=== PATIENT | female | born 1980 | race American Indian/Alaskan Native ===

== ENCOUNTER 2017-05-01 16:09 | Emergency (ER) | payer MEDICAID ==
[2017-05-01 16:45] VITALS: BP 121/75
--- NOTE | 2017-05-01 18:14 | Emergency Department Report ---
Pediatric URI - HPI Chief Complaint: Skin Rash Stated Complaint: SKIN IRRITATION Time Seen by Provider: 05/01/17 16:48 ED Review of Systems ROS: Stated complaint: SKIN IRRITATION Other details as noted in HPI Pediatric Past Medical History - Chronic Health Problems Hx Asthma: No Hx Diabetes: No Hx HIV: No Hx Renal Disease: No Hx Sickle Cell Disease: No Hx Seizures: No ED Peds URI Exam - Exam General: Vital signs noted. No distress. Alert and acting appropriately. Neurologic: Alert and oriented, no deficits. Musculoskeletal: Unremarkable. ED Course Vital Signs 05/01/17 16:41 Temperature 98.7 F Pulse Rate 89 Respiratory 18 Rate Blood Pressure 121/75 O2 Sat by Pulse 100 Oximetry Critical care attestation.: If time is entered above; I have spent that time in minutes in the direct care of this critically ill patient, excluding procedure time. ED Disposition Condition: Stable Referrals: PATRIC CANTU DO [Primary Care Provider] - 3-5 Days
[2017-05-01] MEDS ORDERED: DELTASONE PO ONE (18:16)
--- NOTE | 2017-05-01 18:16 | Emergency Department Report ---
ED Rash HPI - HPI Chief Complaint: Skin Rash Stated Complaint: SKIN IRRITATION Time Seen by Provider: 05/01/17 16:48 Duration: 2 weeks Location: Back, Abdomen Suspected Cause: Unknown Rash Symptoms: Yes Itching (back and abdomen), No Facial Swelling, No Tongue/ Oral Swelling, No Breathing Difficulties, No Choking Sensation, No Wheezing/ Dyspnea, No Peeling, No Blistering, No Fever, No Lightheaded, No Malaise, No Myalgias (no pain) Other History: Patient here with her children. She said that she went to her friend's house and she thinks that she was exposed to an insect. It's in triage notes the patient's that she was exposed to lice but patient states that she thinks that it was some other kind of bug. She is that she has sores on her body and she has been itching at the sites that are bloody. Denies any fever or chills. Denies any respiratory problems. Denies any nausea or vomiting. This has been going on for over 2 weeks. Denies any pain. ED Review of Systems ROS: Stated complaint: SKIN IRRITATION Other details as noted in HPI Comment: All other systems reviewed and negative Constitutional: no symptoms reported ENT: denies: throat pain, congestion Respiratory: no symptoms reported Cardiovascular: denies: chest pain, palpitations, dyspnea on exertion, orthopnea , edema, syncope, paroxysmal nocturnal dyspnea Gastrointestinal: denies: abdominal pain, nausea, vomiting, diarrhea, constipation Musculoskeletal: denies: back pain, joint swelling, arthralgia, myalgia Skin: rash, pruritus Neurological: denies: headache ED Past Medical Hx - Past Medical History Previous Medical History?: No Hx Hypertension: No Hx Congestive Heart Failure: No Hx Diabetes: No Hx Deep Vein Thrombosis: No Hx Renal Disease: No Hx Sickle Cell Disease: No Hx Seizures: No Hx Asthma: No Hx COPD: No Hx HIV: No - Surgical History Past Surgical History?: No - Family History Family history: no significant - Social History Smoking Status: Current Every Day Smoker Substance Use Type: Alcohol - Medications Home Medications: Home Medications Medication Instructions Recorded Confirmed Last Taken Type Ferrous Sulfate [Feosol 325 MG tab] 325 mg PO BID #60 tablet 05/06/16 Unknown Rx Ibuprofen [Motrin 600 MG tab] 600 mg PO Q6HR #30 tablet 05/06/16 Unknown Rx Vit-Fe Fumar-FA [ 1 each PO QDAY #30 tablet 05/06/16 Unknown Rx Vitamin] Cephalexin [Keflex] 500 mg PO Q8HR 5 Days #15 cap 05/01/17 Unknown Rx Neomycin/Bacitracin/Polymyxinb 1 each TP BID 7 Days #5 oint.pack 05/01/17 Unknown Rx [Neosporin Ointment Packet] hydrOXYzine HCL [Atarax] 25 mg PO Q6HR PRN 5 Days #20 tablet 05/01/17 Unknown Rx Rash Exam - Exam General: Vital signs noted. No distress. Alert and acting appropriately. This is a 36-year-old patient who appears to be overwhelmed manage and several children. She is nontoxic in appearance. HEENT: No Periorbital Edema, No Conjuctival Injection, No Chemosis, No Perioral Edema, No Tongue Edema, No Uvular Edema, No Compromised Airway, No Drooling Lungs: Yes Good Air Exchange, No Wheezes, No Ronchi, No Stridor, No Cough, No Labored Respirations, No Retractions, No Use of Accessory Muscles, No Other Abnormal Lung Sounds Heart: Yes Regular (S1, S2. Rate and rhythm. No Murmur), No Murmur Skin: Yes Excoriations (with isolated excoriated areas scattered sparsely to anterior and posterior thorax.), Yes Erythema (some area of erythema and appears to be infected), No Urticarial Rash, No Maculopapular Rash, No Morbilliform rash, No Weeping, No Tenderness, No Edema, No Encrustations, No Other Other: Positive: Abdomen Normal (soft, nontender to palpate in all quadrants, bowel sounds), Neurologic Normal (alert and oriented 3, GCS of 15, speech is clear and fluid and gait is normal.), Musculoskeletal Normal (full range of motion in all extremities, no clubbing cyanosis are edema to extremities. +2 pulses in all extremities. Musculoskeletal and extremity exams are normal) ED Course Vital Signs 05/01/17 16:41 Temperature 98.7 F Pulse Rate 89 Respiratory 18 Rate Blood Pressure 121/75 O2 Sat by Pulse 100 Oximetry - Reevaluation(s) Reevaluation #1: 05/01/17 19:26 She received Deltasone 60 mg by mouth in emergency room for rash. ED Medical Decision Making - Medical Decision Making ED course: Patient presents to emergency room complaining of skin rash that she thinks she was bit by something 2 weeks ago and she is picking at the side and they looked legs the are becoming sores. Physical findings were isolated areas on anterior and posterior thorax that looks to be mildly infected probably from patient scratching the areas. I discussed patient that she has a minor infection to these areas which were rash initially and because she scratched areas they became infected and I told her that she needs to clean areas with peroxide and apply Neosporin ointment and I will put her on Keflex. I discussed with her that she will need to follow up with [employer] sales consultant in 2-3 days follow-up visit. Patient request then for skin test to evaluate what kind of rash or if she is allergic to anything. I told her that this was not done in the emergency room that she will need to follow-up with the [employer] sales consultant or hospital receptionist who has the equipment in their office as this is their specialty for further evaluation of allergy testing. Was given prednisone 60 mg by mouth and will be discharged home with prescription for Atarax, Keflex and to follow up with [employer] and her primary care physician. Critical care attestation.: If time is entered above; I have spent that time in minutes in the direct care of this critically ill patient, excluding procedure time. ED Disposition Clinical Impression: Skin infection, Rash and other nonspecific skin eruption Disposition: DC-01 TO HOME OR SELFCARE Is pt being admited?: No Does the pt Need Aspirin: No Condition: Stable Instructions: Acute Rash (ED), Cellulitis (ED), Acute Wound Care (ED) Additional Instructions: Follow-up with your primary care physician in 2 days follow-up with [employer] is referred Keep affected areas clean and dry and apply [id number] Neosporin ointment to affected areas Follow discharge instruction on acute wound care . Prescriptions: Cephalexin [Keflex] 500 mg PO Q8HR 5 Days #15 cap hydrOXYzine HCL [Atarax] 25 mg PO Q6HR PRN 5 Days #20 tablet PRN Reason: Itching Neomycin/Bacitracin/Polymyxinb [Neosporin Ointment Packet] 1 each TP BID 7 Days #5 oint.pack Referrals: PATRIC CANTU DO [Primary Care Provider] - 2-3 Days EDDIE NOGUEIRA MD [Staff Physician] - 2-3 Days
== END 2017-05-01 20:51 | disposition home or self-care (01) ==
LOC: ED 16:09
DX: R21 Rash and other nonspecific skin eruption (principal); L08.9 Local infection of the skin and subcutaneous tissue, unspecified; F17.200 Nicotine dependence, unspecified, uncomplicated
CPT/HCPCS: 99282; J7512

== ENCOUNTER 2017-10-22 08:15 | Emergency (ER) | payer OTHER ==
[2017-10-22] MEDS ORDERED: BENADRYL IM ONE (10:14)
[2017-10-22] MEDS ORDERED: CATAPRES PO ONE (10:14)
--- NOTE | 2017-10-22 10:19 | Emergency Department Report ---
- General Chief complaint: Skin Rash Stated complaint: RASH Time Seen by Provider: 10/22/17 10:05 Source: patient Mode of arrival: Ambulatory Limitations: No Limitations - History of Present Illness Initial comments: 37-year-old female with a past medical history of hypertension and eczema presents to the hospital complaining of exacerbation of eczema. Patient states she has tried multiple [id number] medications without relief. She has not followed with her primary care doctor or product developer. Patient presents with elevated blood pressure has been noncompliant with her BP medication times one she denies headache, chest pain, or shortness of breath. No fever reported. Patient is requesting an assisting on a shot to help with her eczema. - Related Data Previous Rx's Medication Instructions Recorded Last Taken Type Ferrous Sulfate [Feosol 325 MG tab] 325 mg PO BID #60 tablet 05/06/16 Unknown Rx Ibuprofen [Motrin 600 MG tab] 600 mg PO Q6HR #30 tablet 05/06/16 Unknown Rx Vit-Fe Fumar-FA [ 1 each PO QDAY #30 tablet 05/06/16 Unknown Rx Vitamin] Cephalexin [Keflex] 500 mg PO Q8HR 5 Days #15 cap 05/01/17 Unknown Rx Neomycin/Bacitracin/Polymyxinb 1 each TP BID 7 Days #5 oint.pack 05/01/17 Unknown Rx [Neosporin Ointment Packet] hydrOXYzine HCL [Atarax] 25 mg PO Q6HR PRN 5 Days #20 tablet 05/01/17 Unknown Rx Mineral Oil/Hydrophil Petrolat 1 applicatio TP BID #1 bottle 10/22/17 Unknown Rx [Aquaphor Healing Ointment] Triamcinolone 0.1% [Kenalog 0.1% 1 applic TP BID #1 tube 10/22/17 Unknown Rx OINT] amLODIPine [Norvasc] 5 mg PO DAILY #30 tab 10/22/17 Unknown Rx hydrOXYzine PAMOATE [Vistaril] 50 mg PO Q6HR PRN #30 capsule 10/22/17 Unknown Rx Allergies Allergy/AdvReac Type Severity Reaction Status Date / Time No Known Allergies Allergy Verified 01/09/15 01:28 Abscess Boil HPI - HPI Chief Complaint: Skin Rash Stated Complaint: RASH Time Seen by Provider: 10/22/17 10:05 Home Medications: Previous Rx's Medication Instructions Recorded Last Taken Type Ferrous Sulfate [Feosol 325 MG tab] 325 mg PO BID #60 tablet 05/06/16 Unknown Rx Ibuprofen [Motrin 600 MG tab] 600 mg PO Q6HR #30 tablet 05/06/16 Unknown Rx Vit-Fe Fumar-FA [ 1 each PO QDAY #30 tablet 05/06/16 Unknown Rx Vitamin] Cephalexin [Keflex] 500 mg PO Q8HR 5 Days #15 cap 05/01/17 Unknown Rx Neomycin/Bacitracin/Polymyxinb 1 each TP BID 7 Days #5 oint.pack 05/01/17 Unknown Rx [Neosporin Ointment Packet] hydrOXYzine HCL [Atarax] 25 mg PO Q6HR PRN 5 Days #20 tablet 05/01/17 Unknown Rx Mineral Oil/Hydrophil Petrolat 1 applicatio TP BID #1 bottle 10/22/17 Unknown Rx [Aquaphor Healing Ointment] Triamcinolone 0.1% [Kenalog 0.1% 1 applic TP BID #1 tube 10/22/17 Unknown Rx OINT] amLODIPine [Norvasc] 5 mg PO DAILY #30 tab 10/22/17 Unknown Rx hydrOXYzine PAMOATE [Vistaril] 50 mg PO Q6HR PRN #30 capsule 10/22/17 Unknown Rx Allergies/Adverse Reactions: Allergies Allergy/AdvReac Type Severity Reaction Status Date / Time No Known Allergies Allergy Verified 01/09/15 01:28 ED Review of Systems ROS: Stated complaint: RASH Other details as noted in HPI Comment: All other systems reviewed and negative ED Past Medical Hx - Past Medical History Previous Medical History?: Yes Hx Hypertension: Yes Hx Congestive Heart Failure: No Hx Diabetes: No Hx Deep Vein Thrombosis: No Hx Renal Disease: No Hx Sickle Cell Disease: No Hx Seizures: No Hx Asthma: No Hx COPD: No Hx HIV: No Additional medical history: Eczema - Surgical History Past Surgical History?: No - Social History Smoking Status: Current Every Day Smoker Substance Use Type: None - Medications Home Medications: Home Medications Medication Instructions Recorded Confirmed Last Taken Type Ferrous Sulfate [Feosol 325 MG tab] 325 mg PO BID #60 tablet 05/06/16 Unknown Rx Ibuprofen [Motrin 600 MG tab] 600 mg PO Q6HR #30 tablet 05/06/16 Unknown Rx Vit-Fe Fumar-FA [ 1 each PO QDAY #30 tablet 05/06/16 Unknown Rx Vitamin] Cephalexin [Keflex] 500 mg PO Q8HR 5 Days #15 cap 05/01/17 Unknown Rx Neomycin/Bacitracin/Polymyxinb 1 each TP BID 7 Days #5 oint.pack 05/01/17 Unknown Rx [Neosporin Ointment Packet] hydrOXYzine HCL [Atarax] 25 mg PO Q6HR PRN 5 Days #20 tablet 05/01/17 Unknown Rx Mineral Oil/Hydrophil Petrolat 1 applicatio TP BID #1 bottle 10/22/17 Unknown Rx [Aquaphor Healing Ointment] Triamcinolone 0.1% [Kenalog 0.1% 1 applic TP BID #1 tube 10/22/17 Unknown Rx OINT] amLODIPine [Norvasc] 5 mg PO DAILY #30 tab 10/22/17 Unknown Rx hydrOXYzine PAMOATE [Vistaril] 50 mg PO Q6HR PRN #30 capsule 10/22/17 Unknown Rx ED Physical Exam - General Limitations: No Limitations - Other Other exam information: General: No limitations, patient is alert in no acute distress Head exam: Atraumatic, normocephalic Eyes exam: Normal appearance, pupils equal reactive to light, extraocular movements intact ENT: Moist mucous membrane, normal oropharynx Neck exam: Normal inspection, full range of motion, no meningismus nontender Respiratory exam: Clear to auscultation bilateral, no wheezes, rales, crackles Cardiovascular: Normal rate and rhythm, normal heart sounds Abdomen: Soft, nondistended, and nontender, with normal bowel sounds, no rebound, or guarding Extremity: Full range of motion normal inspection no deformity Back: Normal Inspection, full range of motion, no tenderness Neurologic: Alert, oriented x3, cranial nerves intact, no motor or sensory deficit Psychiatric: normal affect, normal mood Skin: Eczematous rash to neck, arms, legs, and stomach ED Course Vital Signs 10/22/17 10/22/17 10/22/17 08:45 10:40 10:46 Temperature 98.3 F Pulse Rate 93 H 93 H Respiratory 16 20 Rate Blood Pressure 173/129 154/103 Blood Pressure 154/103 [Right] O2 Sat by Pulse 100 100 Oximetry ED Medical Decision Making - Medical Decision Making Eczema Chronic and uncontrolled I explained to the patient the importance of outpatient follow-up for management of her chronic condition ER is limited in his ability to treat her chronic condition however, we will try additional medication to see if she receives relief from her symptoms. Hypertension explained my concern for her blood pressure and possibility of underlying renal insufficiency Patient states that to her her eczema is more emergent that her blood pressure and she does not want blood work. She willing to receive a blood pressure medication and prefers shots for her eczema and then DC home. Will be given a prescription for blood pressure medication follow-up encourage Pt is asymptomatic at this time and close follow-up and blood pressure recheck encouraged. Repeat bp improved compared to triage prior to receiving meds. Norvasc 5 mg given prior to d/c - Differential Diagnosis eczema, cellulitis, hypertensive urgency Critical Care Time: No Critical care attestation.: If time is entered above; I have spent that time in minutes in the direct care of this critically ill patient, excluding procedure time. ED Disposition Clinical Impression: Eczema, Uncontrolled hypertension, Nonadherence to medication Disposition: DC-01 TO HOME OR SELFCARE Is pt being admited?: No Does the pt Need Aspirin: No Condition: Stable Instructions: Eczema (ED), How to Take a Blood Pressure (ED), Hypertension (ED ) Additional Instructions: Take either prescribed Vistaril or Benadryl as needed for itching but do not take both. Use the creams provided. It is very important that you follow up with your primary care doctor for further management of the eczema as well as your blood pressure. You will also benefit from dermatology follow-up for further management of the eczema. Continue to monitor your blood pressure home while taking the prescribed blood pressure medication and record these values. Please provide this information to your doctor for follow-up some medication adjustments can be made as needed. Prescriptions: amLODIPine [Norvasc] 5 mg PO DAILY #30 tab hydrOXYzine PAMOATE [Vistaril] 50 mg PO Q6HR PRN #30 capsule PRN Reason: Itching Mineral Oil/Hydrophil Petrolat [Aquaphor Healing Ointment] 1 applicatio TP BID # 1 bottle Triamcinolone 0.1% [Kenalog 0.1% OINT] 1 applic TP BID #1 tube Referrals: ROMAN VALLEJO MD [Staff Physician] - 3-5 Days (product developer) RUTHIE WISE MD [Staff Physician] - 3-5 Days (product developer ) [facility] [Provider Group] - 3-5 Days (primary care clinic) ROWAN JACKSON MD [Staff Physician] - 3-5 Days (Primary care doctor) Time of Disposition: 10:25
[2017-10-22] MEDS ORDERED: NORVASC PO ONE (10:42)
[2017-10-22 10:49] VITALS: BP 154/103
== END 2017-10-22 11:14 | disposition home or self-care (01) ==
LOC: ED 08:15
DX: L30.9 Dermatitis, unspecified (principal); I10 Essential (primary) hypertension; Z91.19 Patient's noncompliance with other medical treatment and regimen; F17.200 Nicotine dependence, unspecified, uncomplicated
CPT/HCPCS: 96372; 99282; J1200; J2930

== ENCOUNTER 2018-02-15 15:17 | Emergency (ER) | payer SELFPAY ==
[2018-02-15 16:07] VITALS: BP 170/112
[2018-02-15] MEDS ORDERED: DECADRON IM ONE (17:55)
--- NOTE | 2018-02-15 18:00 | Emergency Department Report ---
ED Rash HPI - HPI Chief Complaint: Skin Rash Stated Complaint: SKIN/ALLERGIES Duration: 1-2 months Location: Head (face), Neck, Chest, Upper Extremities, Lower Extremities Suspected Cause: Unknown Rash Symptoms: Yes Itching, No Facial Swelling, No Tongue/Oral Swelling, No Breathing Difficulties, No Choking Sensation, No Wheezing/Dyspnea, No Peeling, No Blistering, No Fever, No Lightheaded, No Malaise, No Myalgias Severity: moderate Other History: This 37-year-old -Turk[place] female who presents with a generalized rash for 1-2 months from eczema flare. Past medical history of hypertension and eczema. Patient states she is currently using, dove cream, gold grimaldo cream, and hydrocortisone with no improvement of symptoms. She reports a rash all over and worse in arm and leg folds. She is currently taking Zithromax with no improvement of itching. Patient states she can't tolerate Benadryl due to her increased drowsiness. The patient denies weeping, swelling, fever, joint pain, swelling, or difficulty swallowing. ED Review of Systems ROS: Stated complaint: SKIN/ALLERGIES Other details as noted in HPI Constitutional: denies: chills, fever ENT: denies: ear pain, throat pain Respiratory: denies: cough, shortness of breath, wheezing Cardiovascular: denies: chest pain, palpitations Gastrointestinal: denies: abdominal pain, nausea, diarrhea Skin: rash (generalized rash), pruritus. denies: lesions Neurological: denies: headache, weakness, paresthesias Psychiatric: denies: anxiety, depression ED Past Medical Hx - Past Medical History Hx Hypertension: Yes Hx Congestive Heart Failure: No Hx Diabetes: No Hx Deep Vein Thrombosis: No Hx Renal Disease: No Hx Sickle Cell Disease: No Hx Seizures: No Hx Asthma: No Hx COPD: No Hx HIV: No Additional medical history: Eczema - Surgical History Past Surgical History?: No - Social History Smoking Status: Never Smoker Substance Use Type: None - Medications Home Medications: Home Medications Medication Instructions Recorded Confirmed Last Taken Type Ferrous Sulfate [Feosol 325 MG tab] 325 mg PO BID #60 tablet 05/06/16 Unknown Rx Ibuprofen [Motrin 600 MG tab] 600 mg PO Q6HR #30 tablet 05/06/16 Unknown Rx Vit-Fe Fumar-FA [ 1 each PO QDAY #30 tablet 05/06/16 Unknown Rx Vitamin] Neomycin/Bacitracin/Polymyxinb 1 each TP BID 7 Days #5 oint.pack 05/01/17 Unknown Rx [Neosporin Ointment Packet] cephALEXin [Keflex] 500 mg PO Q8HR 5 Days #15 cap 05/01/17 Unknown Rx hydrOXYzine HCL [Atarax] 25 mg PO Q6HR PRN 5 Days #20 tablet 05/01/17 Unknown Rx Mineral Oil/Hydrophil Petrolat 1 applicatio TP BID #1 bottle 10/22/17 Unknown Rx [Aquaphor Healing Ointment] Triamcinolone 0.1% [Kenalog 0.1% 1 applic TP BID #1 tube 10/22/17 Unknown Rx OINT] amLODIPine [Norvasc] 5 mg PO DAILY #30 tab 10/22/17 Unknown Rx hydrOXYzine PAMOATE [Vistaril] 50 mg PO Q6HR PRN #30 capsule 10/22/17 Unknown Rx Prednisone [predniSONE 10 mg 10 mg PO .TAPER #1 tab.ds.pk 02/15/18 Unknown Rx (6-Day Pack, 21 Tabs)] Triamcinolone 0.5% [Kenalog 0.5% 1 applic TP TID #1 tube 02/15/18 Unknown Rx CREAM] amLODIPine [Norvasc] 5 mg PO DAILY #14 tab 02/15/18 Unknown Rx hydrOXYzine PAMOATE [Vistaril] 25 mg PO Q6HR PRN #15 capsule 02/15/18 Unknown Rx Rash Exam - Exam General: Vital signs noted. No distress. Alert and acting appropriately. HEENT: No Periorbital Edema, No Conjuctival Injection, No Chemosis, No Perioral Edema, No Tongue Edema, No Uvular Edema, No Compromised Airway, No Drooling Lungs: Yes Good Air Exchange (Normal Breath Sounds), No Wheezes, No Ronchi, No Stridor, No Cough, No Labored Respirations, No Retractions, No Use of Accessory Muscles, No Other Abnormal Lung Sounds Heart: Yes Regular, No Murmur Skin: Yes Excoriations, Yes Erythema, No Urticarial Rash, No Maculopapular Rash , No Morbilliform rash, No Bulla(e), No Weeping, No Tenderness, No Edema, No Encrustations ED Course Vital Signs 02/15/18 16:04 Temperature 97.7 F Pulse Rate 70 Respiratory 16 Rate Blood Pressure 170/112 O2 Sat by Pulse 96 Oximetry ED Medical Decision Making - Medical Decision Making Patient was examined by me in the emergency room. Blood pressure is elevated on arrival and patient is in no acute distress. Has past medical history of hypertension and currently not taking any medication. She was given dexamethasone 8 mg IM once while in the ER. Reevaluation of blood pressure, remained elevated. Patient given clonidine 0.2 mg by mouth once while in ER. Start triamcinolone, Vistaril, prednisone taper for atopic dermatitis. Start amlodipine 5 mg by mouth once daily, #14 with no refills for hypertension. Plan discussed with patient to discharge home and treat outpatient. Referral to allergy and asthma specialist, dermatology. Patient discharged home in stable condition. Follow up with PCP in 2-3 days for management of hypertension. Critical care attestation.: If time is entered above; I have spent that time in minutes in the direct care of this critically ill patient, excluding procedure time. ED Disposition Clinical Impression: Rash of entire body, Asymptomatic hypertension Atopic dermatitis Qualifiers: Atopic dermatitis type: infantile Qualified Code(s): L20.83 - Infantile (acute ) (chronic) eczema Hypertension Qualifiers: Hypertension type: essential hypertension Qualified Code(s): I10 - Essential ( primary) hypertension Disposition: - TO HOME OR SELFCARE Is pt being admited?: No Does the pt Need Aspirin: No Condition: Stable Instructions: Eczema (ED), DASH Eating Plan (ED), Hypertension (ED) Additional Instructions: Apply a thin layer of triamcinolone cream twice a day for 5-10 days. Wash area twice a day. Complete full course of steroids as prescribed. Encourage stop smoking to reduce cardiovascular risk. Moderate caffeine consumption is acceptable. Begin and maintain aerobic exercise, with a goal of at least 30 minutes of moderate intensity, dynamic aerobic exercise (walking, jogging, cycling, or swimming) 5 days per week to total 150 minutes as tolerated or recommended by a physician. Take medication daily as prescribed. Follow up with Primary Care Provider in 1 week. Follow up with photo specialist or dermatology in 3-5 days. Prescriptions: amLODIPine [Norvasc] 5 mg PO DAILY #14 tab hydrOXYzine PAMOATE [Vistaril] 25 mg PO Q6HR PRN #15 capsule PRN Reason: Itching Prednisone [predniSONE 10 mg (6-Day Pack, 21 Tabs)] 10 mg PO .TAPER #1 tab.ds.pk Triamcinolone 0.5% [Kenalog 0.5% CREAM] 1 applic TP TID #1 tube Referrals: [facility] [Provider Group] - 3-5 Days [facility] [Provider Group] - 3-[address] [facility] [Outside] - 3-5 Days Forms: Work/School Release Form(ED) Time of Disposition: 18:06 Print Language: SWISS
[2018-02-15] MEDS ORDERED: CATAPRES PO ONE (18:45)
== END 2018-02-15 18:53 | disposition home or self-care (01) ==
LOC: ED 15:17
DX: L20.9 Atopic dermatitis, unspecified (principal); I10 Essential (primary) hypertension
CPT/HCPCS: 96372; 99282; J1100

== ENCOUNTER 2018-07-17 06:33 | Outpatient (CLI) | payer SELFPAY ==
--- NOTE | 2018-07-17 08:49 | Emergency Department Report ---
ED General Adult HPI - General Chief complaint: Dyspnea/Respdistress Stated complaint: ASTHMA Time Seen by Provider: 07/17/18 08:37 Source: patient, EMS (ems notes not available at time of chart dictation), RN notes reviewed, old records reviewed Mode of arrival: Stretcher Limitations: No Limitations - History of Present Illness Initial comments: This is a 37-year-old female. The patient is reportedly 10, para 9, and is reportedly 27 weeks . She does not have a current [facility] doctor. She reports no outpatient care or ultrasound. The past medical history of asthma, no lifetime intubations, and currently consumes tobacco and cannabis. The patient presents to the emergency room with a complaint of resolved asthma exacerbation. Sugars includes seasonal allergies, cold weather, change in temperature. She may have "mold" at home, which may be inciting her symptoms. She reports resolved shortness of breath, wheezing, without chest pain. She was apparently given nebulizer therapy by EMS, which improved her symptoms. The patient endorses a secondary complaint of abdominal cramping. This cramping has been present for weeks. Today, it started after she arrived to the emergency room. The cramping is periumbilical, does not radiate anywhere, does not have exacerbating or relieving factors. She endorses experiencing this cramping over a span of weeks and months. She also endorses like cramps. However, she has no leg pain, no leg swelling, and denies irritative, obstructive urinary symptoms. -: Gradual Location: abdomen, left, right, lower extremity Radiation: non-radiation Severity scale (0 -10): 0 Quality: other Consistency: now resolved (asthma, shortness of breath now resolved), other Improves with: other Associated Symptoms: cough, shortness of breath, other (see history of present illness). denies: confusion, chest pain, diaphoresis, fever/chills, headaches, loss of appetite, malaise, nausea/vomiting, rash, seizure, syncope, weakness - Related Data Previous Rx's Medication Instructions Recorded Last Taken Type Ferrous Sulfate [Feosol 325 MG tab] 325 mg PO BID #60 tablet 05/06/16 Unknown Rx Ibuprofen [Motrin 600 MG tab] 600 mg PO Q6HR #30 tablet 05/06/16 Unknown Rx Vit-Fe Fumar-FA [ 1 each PO QDAY #30 tablet 05/06/16 Unknown Rx Vitamin] Neomycin/Bacitracin/Polymyxinb 1 each TP BID 7 Days #5 oint.pack 05/01/17 Unknown Rx [Neosporin Ointment Packet] cephALEXin [Keflex] 500 mg PO Q8HR 5 Days #15 cap 05/01/17 Unknown Rx hydrOXYzine HCL [Atarax] 25 mg PO Q6HR PRN 5 Days #20 tablet 05/01/17 Unknown Rx Mineral Oil/Hydrophil Petrolat 1 applicatio TP BID #1 bottle 10/22/17 Unknown Rx [Aquaphor Healing Ointment] Triamcinolone 0.1% [Kenalog 0.1% 1 applic TP BID #1 tube 10/22/17 Unknown Rx OINT] amLODIPine [Norvasc] 5 mg PO DAILY #30 tab 10/22/17 Unknown Rx hydrOXYzine PAMOATE [Vistaril] 50 mg PO Q6HR PRN #30 capsule 10/22/17 Unknown Rx Prednisone [predniSONE 10 mg 10 mg PO .TAPER #1 tab.ds.pk 02/15/18 Unknown Rx (6-Day Pack, 21 Tabs)] Triamcinolone 0.5% [Kenalog 0.5% 1 applic TP TID #1 tube 02/15/18 Unknown Rx CREAM] amLODIPine [Norvasc] 5 mg PO DAILY #14 tab 02/15/18 Unknown Rx hydrOXYzine PAMOATE [Vistaril] 25 mg PO Q6HR PRN #15 capsule 02/15/18 Unknown Rx Albuterol Sulfate [Proair 90 mcg IH Q4HR PRN #2 aer.pow.ba 07/17/18 Unknown Rx Respiclick] Doxylamine Succinate/Vit B6 1 each PO QHS PRN #30 tablet.dr 07/17/18 Unknown Rx [Diclegitony Dr 10-10 mg Tablet] Nitrofurantoin Cannon/M-Cryst 100 mg PO Q12HR #14 capsule 07/17/18 Unknown Rx [Macrobid CAP] Vit-Fe Fumar-FA [ 1 tab PO QDAY #30 tablet 07/17/18 Unknown Rx Vitamin] Allergies Allergy/AdvReac Type Severity Reaction Status Date / Time No Known Allergies Allergy Verified 01/09/15 01:28 ED Review of Systems ROS: Stated complaint: ASTHMA Other details as noted in HPI Constitutional: denies: fever, malaise Eyes: denies: vision change ENT: denies: epistaxis, congestion Respiratory: cough, shortness of breath, wheezing Cardiovascular: denies: chest pain, palpitations, edema Gastrointestinal: denies: nausea, vomiting Genitourinary: denies: dysuria Musculoskeletal: arthralgia, myalgia Skin: denies: lesions Neurological: denies: weakness Psychiatric: denies: anxiety ED Past Medical Hx - Past Medical History Previous Medical History?: Yes Hx Hypertension: Yes Hx Congestive Heart Failure: No Hx Diabetes: No Hx Deep Vein Thrombosis: No Hx Renal Disease: No Hx Sickle Cell Disease: No Hx Seizures: No Hx Asthma: Yes Hx COPD: No Hx HIV: No Additional medical history: Eczema - Surgical History Past Surgical History?: No - Social History Smoking Status: Current Every Day Smoker Substance Use Type: Marijuana - Medications Home Medications: Home Medications Medication Instructions Recorded Confirmed Last Taken Type Ferrous Sulfate [Feosol 325 MG tab] 325 mg PO BID #60 tablet 05/06/16 Unknown Rx Ibuprofen [Motrin 600 MG tab] 600 mg PO Q6HR #30 tablet 05/06/16 Unknown Rx Vit-Fe Fumar-FA [ 1 each PO QDAY #30 tablet 05/06/16 Unknown Rx Vitamin] Neomycin/Bacitracin/Polymyxinb 1 each TP BID 7 Days #5 oint.pack 05/01/17 Unknown Rx [Neosporin Ointment Packet] cephALEXin [Keflex] 500 mg PO Q8HR 5 Days #15 cap 05/01/17 Unknown Rx hydrOXYzine HCL [Atarax] 25 mg PO Q6HR PRN 5 Days #20 tablet 05/01/17 Unknown Rx Mineral Oil/Hydrophil Petrolat 1 applicatio TP BID #1 bottle 10/22/17 Unknown Rx [Aquaphor Healing Ointment] Triamcinolone 0.1% [Kenalog 0.1% 1 applic TP BID #1 tube 10/22/17 Unknown Rx OINT] amLODIPine [Norvasc] 5 mg PO DAILY #30 tab 10/22/17 Unknown Rx hydrOXYzine PAMOATE [Vistaril] 50 mg PO Q6HR PRN #30 capsule 10/22/17 Unknown Rx Prednisone [predniSONE 10 mg 10 mg PO .TAPER #1 tab.ds.pk 02/15/18 Unknown Rx (6-Day Pack, 21 Tabs)] Triamcinolone 0.5% [Kenalog 0.5% 1 applic TP TID #1 tube 02/15/18 Unknown Rx CREAM] amLODIPine [Norvasc] 5 mg PO DAILY #14 tab 02/15/18 Unknown Rx hydrOXYzine PAMOATE [Vistaril] 25 mg PO Q6HR PRN #15 capsule 02/15/18 Unknown Rx Albuterol Sulfate [Proair 90 mcg IH Q4HR PRN #2 aer.pow.ba 07/17/18 Unknown Rx Respiclick] Doxylamine Succinate/Vit B6 1 each PO QHS PRN #30 tablet. 07/17/18 Unknown Rx [Diclegis Dr 10-10 mg Tablet] Nitrofurantoin Cannon/M-Cryst 100 mg PO Q12HR #14 capsule 07/17/18 Unknown Rx [Macrobid CAP] Vit-Fe Fumar-FA [ 1 tab PO QDAY #30 tablet 07/17/18 Unknown Rx Vitamin] ED Physical Exam - General Limitations: No Limitations General appearance: alert, in no apparent distress - Head Head exam: Present: atraumatic, normocephalic - Eye Eye exam: Present: normal appearance, EOMI. Absent: nystagmus - ENT ENT exam: Present: normal exam, normal orophraynx, mucous membranes moist, normal external ear exam - Neck Neck exam: Present: normal inspection, full ROM. Absent: tenderness, meningismus - Respiratory Respiratory exam: Present: normal lung sounds bilaterally. Absent: respiratory distress, wheezes, rales, rhonchi, stridor, chest wall tenderness, accessory muscle use, decreased breath sounds, prolonged expiratory - Cardiovascular Cardiovascular Exam: Present: regular rate, normal rhythm, normal heart sounds. Absent: bradycardia, tachycardia, irregular rhythm, systolic murmur, diastolic murmur, rubs, gallop - GI/Abdominal GI/Abdominal exam: Present: soft, other (uterus is palpated, supraumbilical, nontender.). Absent: distended, tenderness, guarding, rebound, rigid, pulsatile mass - Extremities Exam Extremities exam: Present: normal inspection, full ROM, other (2+ pulses noted in the bilateral upper, lower extremities. Compartments soft. No long bony tenderness. The pelvis is stable.). Absent: pedal edema, joint swelling, calf tenderness - Back Exam Back exam: Present: normal inspection, full ROM. Absent: tenderness, CVA tenderness (R), paraspinal tenderness, vertebral tenderness - Neurological Exam Neurological exam: Present: alert, oriented X3, CN II-XII intact, normal gait, other (Extraocular movements intact. Tongue midline. No facial droop. Facial sensation intact to light touch in the V1, V2, V3 distribution bilaterally. 5 and 5 strength in 4 extremities.. Sensation is intact to light touch in 4 extremities.). Absent: motor sensory deficit - Psychiatric Psychiatric exam: Present: normal affect, normal mood - Skin Skin exam: Present: warm, dry, intact, normal color. Absent: rash ED Course Vital Signs 07/17/18 07/17/18 07/17/18 07:01 07:12 07:15 Temperature 97.8 F Pulse Rate 102 H 98 H 100 H Respiratory 14 16 15 Rate Blood Pressure 139/90 139/90 O2 Sat by Pulse 100 100 100 Oximetry - Reevaluation(s) Reevaluation #1: 07/17/18 10:42 Differential diagnosis, including not limited to: Resolved asthma, bronchitis, pneumonia, pneumothorax, inadequate care, labor, urinary tract infection, history of tobacco use, history of cannabis use Assessment and plan: 37-year-old female with probable resolved asthma attack/exacerbation. The patient is afebrile, with reassuring vital signs walking around the emergency department in no acute distress. Heart rate currently in the 90s, no evidence of DVT noted in lower extremities, no active wheezing noted, and no hypoxia noted thus far. I find the possibility of DVT or pulmonary embolus to be unlikely given the clinical history. X-ray of the chest was obtained after verbal informed consent was obtained from the patient. X-ray of the chest was negative for acute disease. The patient is requesting to eat. Obstetrics ultrasound has been obtained, interpretation is pending. The patient was counseled to not consume cannabis or tobacco during her . Once her ultrasound has resulted, depending on her gestational age, we will make further recommendations. Initial tachycardia reviewed and appreciated, likely secondary to physiologic tachycardia of , in addition to history of albuterol inhaler use. 07/17/18 10:43 Reevaluation #2: 07/17/18 13:13 Patient is observed in the emergency room for over 6 hours without clinical decompensation. She is saturating well. Her tachycardia is improved on my physical examination. Ultrasound reviewed and appreciated, and confirms a 27 week with no evidence of bleeding. Patient will be discharged was as needed albuterol, antiemetic medication, and Macrobid. She is clinically sober at this point in time, however urinalysis suggests possibility of cannabis and cocaine. The patient is counseled to discontinue drug consumption. Dr. Mueller of [facility] is amenable to having the patient evaluated in labor and delivery for possible labor. ED Medical Decision Making - Lab Data Result diagrams: 07/17/18 08:56 07/17/18 08:56 Vital Signs 07/17/18 07/17/18 07/17/18 07:01 07:12 07:15 Temperature 97.8 F Pulse Rate 102 H 98 H 100 H Respiratory 14 16 15 Rate Blood Pressure 139/90 139/90 O2 Sat by Pulse 100 100 100 Oximetry Lab Results 07/17/18 07/17/18 07/17/18 Range/Units 08:56 08:56 08:56 WBC 9.1 (4.5-11.0) K/mm3 RBC 3.18 L (3.65-5.03) M/mm3 Hgb 11.2 (10.1-14.3) gm/dl Hct 31.8 (30.3-42.9) % MCV 100 H (79-97) fl MCH 35 H (28-32) pg MCHC 35 H (30-34) % RDW 13.9 (13.2-15.2) % Plt Count 277 (140-440) K/mm3 PT 12.8 (12.2-14.9) Sec. INR 0.91 (0.87-1.13) Sodium 140 (137-145) mmol/L Potassium 3.3 L (3.6-5.0) mmol/L Chloride 104.2 (98-107) mmol/L Carbon Dioxide 24 (22-30) mmol/L Anion Gap 15 mmol/L BUN 4 L (7-17) mg/dL Creatinine 0.4 L (0.7-1.2) mg/dL Estimated GFR > 60 ml/min BUN/Creatinine Ratio 10 % Glucose 91 (65-100) mg/dL Calcium 8.4 (8.4-10.2) mg/dL Magnesium 1.90 (1.7-2.3) mg/dL Total Bilirubin < 0.20 (0.1-1.2) mg/dL AST 17 (5-40) units/L ALT 24 (7-56) units/L Alkaline Phosphatase 53 (35-129) units/L Total Creatine Kinase 79 (30-135) units/L Total Protein 6.1 L (6.3-8.2) g/dL Albumin 3.6 L (3.9-5) g/dL Albumin/Globulin Ratio 1.4 % TSH (0.270-4.200) mlU/mL HCG, Quant (0-4) mIU/mL Urine Color (Yellow) Urine Turbidity (Clear) Urine pH (5.0-7.0) Ur Specific Valentine (1.003-1.030) Urine Protein (Negative) mg/dL Urine Glucose (UA) (Negative) mg/dL Urine Ketones (Negative) mg/dL Urine Blood (Negative) Urine Nitrite (Negative) Urine Bilirubin (Negative) Urine Urobilinogen (<2.0) mg/dL Ur Leukocyte Esterase (Negative) Urine WBC (Auto) (0.0-6.0) /HPF Urine RBC (Auto) (0.0-6.0) /HPF U Epithel Cells (Auto) (0-13.0) /HPF Urine Bacteria (Auto) (Negative) /HPF Urine Mucus /HPF Salicylates (2.8-20.0) mg/dL Urine Opiates Screen Urine Methadone Screen Acetaminophen (10.0-30.0) ug/mL Ur Barbiturates Screen Ur Phencyclidine Scrn Ur Amphetamines Screen U Benzodiazepines Scrn Blood Type Antibody Screen 07/17/18 07/17/18 07/17/18 Range/Units 08:56 08:56 08:56 WBC (4.5-11.0) K/mm3 RBC (3.65-5.03) M/mm3 Hgb (10.1-14.3) gm/dl Hct (30.3-42.9) % MCV (79-97) fl MCH (28-32) pg MCHC (30-34) % RDW (13.2-15.2) % Plt Count (140-440) K/mm3 PT (12.2-14.9) Sec. INR (0.87-1.13) Sodium (137-145) mmol/L Potassium (3.6-5.0) mmol/L Chloride (98-107) mmol/L Carbon Dioxide (22-30) mmol/L Anion Gap mmol/L BUN (7-17) mg/dL Creatinine (0.7-1.2) mg/dL Estimated GFR ml/min BUN/Creatinine Ratio % Glucose (65-100) mg/dL Calcium (8.4-10.2) mg/dL Magnesium (1.7-2.3) mg/dL Total Bilirubin (0.1-1.2) mg/dL AST (5-40) units/L ALT (7-56) units/L Alkaline Phosphatase (35-129) units/L Total Creatine Kinase (30-135) units/L Total Protein (6.3-8.2) g/dL Albumin (3.9-5) g/dL Albumin/Globulin Ratio % TSH 7.740 H (0.270-4.200) mlU/mL HCG, Quant 3549 H (0-4) mIU/mL Urine Color (Yellow) Urine Turbidity (Clear) Urine pH (5.0-7.0) Ur Specific Valentine (1.003-1.030) Urine Protein (Negative) mg/dL Urine Glucose (UA) (Negative) mg/dL Urine Ketones (Negative) mg/dL Urine Blood (Negative) Urine Nitrite (Negative) Urine Bilirubin (Negative) Urine Urobilinogen (<2.0) mg/dL Ur Leukocyte Esterase (Negative) Urine WBC (Auto) (0.0-6.0) /HPF Urine RBC (Auto) (0.0-6.0) /HPF U Epithel Cells (Auto) (0-13.0) /HPF Urine Bacteria (Auto) (Negative) /HPF Urine Mucus /HPF Salicylates < 0.3 L (2.8-20.0) mg/dL Urine Opiates Screen Urine Methadone Screen Acetaminophen (10.0-30.0) ug/mL Ur Barbiturates Screen Ur Phencyclidine Scrn Ur Amphetamines Screen U Benzodiazepines Scrn Blood Type Antibody Screen 07/17/18 07/17/18 07/17/18 Range/Units 08:56 08:56 Unknown WBC (4.5-11.0) K/mm3 RBC (3.65-5.03) M/mm3 Hgb (10.1-14.3) gm/dl Hct (30.3-42.9) % MCV (79-97) fl MCH (28-32) pg MCHC (30-34) % RDW (13.2-15.2) % Plt Count (140-440) K/mm3 PT (12.2-14.9) Sec. INR (0.87-1.13) Sodium (137-145) mmol/L Potassium (3.6-5.0) mmol/L Chloride (98-107) mmol/L Carbon Dioxide (22-30) mmol/L Anion Gap mmol/L BUN (7-17) mg/dL Creatinine (0.7-1.2) mg/dL Estimated GFR ml/min BUN/Creatinine Ratio % Glucose (65-100) mg/dL Calcium (8.4-10.2) mg/dL Magnesium (1.7-2.3) mg/dL Total Bilirubin (0.1-1.2) mg/dL AST (5-40) units/L ALT (7-56) units/L Alkaline Phosphatase (35-129) units/L Total Creatine Kinase (30-135) units/L Total Protein (6.3-8.2) g/dL Albumin (3.9-5) g/dL Albumin/Globulin Ratio % TSH (0.270-4.200) mlU/mL HCG, Quant (0-4) mIU/mL Urine Color (Yellow) Urine Turbidity (Clear) Urine pH (5.0-7.0) Ur Specific Valentine (1.003-1.030) Urine Protein (Negative) mg/dL Urine Glucose (UA) (Negative) mg/dL Urine Ketones (Negative) mg/dL Urine Blood (Negative) Urine Nitrite (Negative) Urine Bilirubin (Negative) Urine Urobilinogen (<2.0) mg/dL Ur Leukocyte Esterase (Negative) Urine WBC (Auto) (0.0-6.0) /HPF Urine RBC (Auto) (0.0-6.0) /HPF U Epithel Cells (Auto) (0-13.0) /HPF Urine Bacteria (Auto) (Negative) /HPF Urine Mucus /HPF Salicylates (2.8-20.0) mg/dL Urine Opiates Screen Presumptive negative Urine Methadone Screen Presumptive negative Acetaminophen < 5.0 L (10.0-30.0) ug/mL Ur Barbiturates Screen Presumptive negative Ur Phencyclidine Scrn Presumptive negative Ur Amphetamines Screen Presumptive negative U Benzodiazepines Scrn Presumptive negative Blood Type AB POSITIVE Antibody Screen Negative 07/17/18 Range/Units Unknown WBC (4.5-11.0) K/mm3 RBC (3.65-5.03) M/mm3 Hgb (10.1-14.3) gm/dl Hct (30.3-42.9) % MCV (79-97) fl MCH (28-32) pg MCHC (30-34) % RDW (13.2-15.2) % Plt Count (140-440) K/mm3 PT (12.2-14.9) Sec. INR (0.87-1.13) Sodium (137-145) mmol/L Potassium (3.6-5.0) mmol/L Chloride (98-107) mmol/L Carbon Dioxide (22-30) mmol/L Anion Gap mmol/L BUN (7-17) mg/dL Creatinine (0.7-1.2) mg/dL Estimated GFR ml/min BUN/Creatinine Ratio % Glucose (65-100) mg/dL Calcium (8.4-10.2) mg/dL Magnesium (1.7-2.3) mg/dL Total Bilirubin (0.1-1.2) mg/dL AST (5-40) units/L ALT (7-56) units/L Alkaline Phosphatase (35-129) units/L Total Creatine Kinase (30-135) units/L Total Protein (6.3-8.2) g/dL Albumin (3.9-5) g/dL Albumin/Globulin Ratio % TSH (0.270-4.200) mlU/mL HCG, Quant (0-4) mIU/mL Urine Color Yellow (Yellow) Urine Turbidity Clear (Clear) Urine pH 6.0 (5.0-7.0) Ur Specific Valentine 1.021 (1.003-1.030) Urine Protein <15 mg/dl (Negative) mg/dL Urine Glucose (UA) Neg (Negative) mg/dL Urine Ketones Neg (Negative) mg/dL Urine Blood Neg (Negative) Urine Nitrite Neg (Negative) Urine Bilirubin Neg (Negative) Urine Urobilinogen < 2.0 (<2.0) mg/dL Ur Leukocyte Esterase Tr (Negative) Urine WBC (Auto) 9.0 H (0.0-6.0) /HPF Urine RBC (Auto) 1.0 (0.0-6.0) /HPF U Epithel Cells (Auto) 4.0 (0-13.0) /HPF Urine Bacteria (Auto) 1+ (Negative) /HPF Urine Mucus 1+ /HPF Salicylates (2.8-20.0) mg/dL Urine Opiates Screen Urine Methadone Screen Acetaminophen (10.0-30.0) ug/mL Ur Barbiturates Screen Ur Phencyclidine Scrn Ur Amphetamines Screen U Benzodiazepines Scrn Blood Type Antibody Screen - EKG Data -: EKG Interpreted by Sc EKG shows normal: sinus rhythm Rate: normal - EKG Data When compared to previous EKG there are: previous EKG unavailable 07/17/18 10:45 Sinus, 93 beats minute, QTC prolonged, high left ventricular voltage, premature atrial complex, not consistent with ST elevation myocardial infarction, this is an abnormal EKG. - Radiology Data Radiology results: report reviewed, image reviewed X-ray of the chest is negative for acute disease. Lower extremity DVT study is negative for acute disease. Print Report Referring Physician: RETA GONZALEZ Patient Name: ELIAS OLIVARES Date of : 1980 Sex: Female Report Date: 2018-07-17 Report Status: Finalized Findings [facility] [address] [place] [address] Ultrasound Report Signed Patient: ELIAS OLIVARES MR#: [id number] : 1980 Acct:[id number] Age/Sex: 37 / F ADM Date: 07/17/18 Loc: ED Attending Dr: Ordering Physician: RETA GONZALEZ MD Date of Service: 07/17/18 Procedure(s): US OB >= 14 weeks Fetus Accession Number(s): [id number] cc: RETA GONZALEZ MD OB ULTRASOUND History : with abdominal cramps. Technique: Transabdominal ultrasound with Doppler interrogation. Gestation: Single Position: Breech Amniotic Fluid: Normal ASA = 21.1 cm Placenta: Anterior Placental Grade: 0 Heart Rate: 141 BPM Cervical length: 4.9 cm (Normal > 3 cm) BPD: 6.0 cm = 24 w 3 d HC: 22.5 cm = 24 w 4 d AC: 20.5 cm = 25 w 1 d FL: 4.4 cm = 24 w 4 d HC/AC Ratio: 1.1 Cephalic Index: 82.7 Estimated Weight: 736 grams LMP: 01/08/18 Clinical age = 27 w 1 d EDC: 10/15/18 US Gest. Age = 24 w 5 d EDC: 11/01/18 IMPRESSION: Viable, single intrauterine as described. No acute abnormality is detected. Transcribed By: TTR Dictated By: CHRIS KAUR JR, MD Electronically Authenticated By: CHRIS KAUR JR, MD Signed Date/Time: 07/17/18 1250 Critical care attestation.: If time is entered above; I have spent that time in minutes in the direct care of this critically ill patient, excluding procedure time. ED Disposition Clinical Impression: History of asthma, Insufficient care Disposition: DC-01 TO HOME OR SELFCARE Is pt being admited?: No Does the pt Need Aspirin: No Condition: Good Additional Instructions: I recommend the patient discontinued tobacco consumption and cannabis, marijuana consumption. Smoking these substances may result in disability, cognitive delay, defects, cancer. In addition, the urine toxicology screen demonstrated the presence of cocaine, which can be extremely dangerous to both patient and baby. Please reports to labor and delivery right away for eval uation for possible labor. The patient needs to follow up as soon as possible with an [facility] physician to initiate outpatient care. Not following up for outpatient car e may result in loss of , , disability to both mother and baby. Follow up with any of the listed [facility] physicians as soon as possible. Take the vitamins as directed, nausea medication as needed, albuterol medication as needed. Please return to the emergency room right away with new, worsening, different symptoms. Prescriptions: Doxylamine Succinate/Vit B6 [Satinder Fonseca 10-10 mg Tablet] 1 each PO QHS PRN #30 tablet. PRN Reason: Nausea Albuterol Sulfate [Proair Respiclick] 90 mcg IH Q4HR PRN #2 aer.pow.ba PRN Reason: Wheezing Nitrofurantoin Cannon/M-Cryst [Macrobid CAP] 100 mg PO Q12HR #14 capsule Vit-Fe Fumar-FA [ Vitamin] 1 tab PO QDAY #30 tablet Referrals: [facility] [Provider Group] - 3-5 Days [facility] [Provider Group] - 3-5 Days [facility] [Provider Group] - 3-5 Days
[2018-07-17 09:16] LABS: Hematocrit 31.8 % (30.3-42.9); Hemoglobin 11.2 gm/dl (10.1-14.3); Mean Corpuscular HGB Conc 35 % (30-34); Mean Corpuscular Volume 100 fl (79-97); Platelet Count 277 K/mm3 (140-440); Red Blood Count 3.18 M/mm3 (3.65-5.03); Red Cell Distribution Width 13.9 % (13.2-15.2)
[2018-07-17 09:27] LABS: Alanine Aminotransferase 24 units/L (7-56); Albumin 3.6 g/dL (3.9-5); BUN/Creatinine Ratio 10; Blood Urea Nitrogen 4 mg/dL (7-17); Calcium 8.4 mg/dL (8.4-10.2); Hemolysis Index 2
[2018-07-17 09:33] LABS: INR 0.91 (0.87-1.13)
[2018-07-17] MEDS ORDERED: K-DUR PO ONE (09:36)
[2018-07-17 09:59] LABS: Bacteria,Urine 1+ /HPF (Negative); Bilirubin,Urine NEG (Negative); Blood,Urine NEG (Negative); Color,Urine Yellow (Yellow); Mucus,Urine 1+ /HPF; Protein,Urine <15 mg/dL mg/dL (Negative); Urobilinogen,Urine < 2.0 mg/dL (<2.0)
--- NOTE | 2018-07-17 10:20 | Vascular Lab Report ---
FINAL REPORT EXAM: VL VENOUS DUPLEX LE BILAT HISTORY: ext cramps COMPARISON: None. TECHNIQUE: Duplex Doppler imaging of the veins of the bilateral lower extremities was performed. FINDINGS: The veins of the bilateral lower extremities are patent, compressible, and demonstrate normal wavefor ms and augmentation. There is no Fraga's cyst. There is no soft tissue abnormality. IMPRESSION: No evidence of deep venous thrombosis of the bilateral lower extremities.
--- NOTE | 2018-07-17 10:25 | XRay Report ---
ROUTINE CHEST, TWO VIEWS: HISTORY: Dyspnea. The trachea, heart, mediastinal contour, lung mcnulty and bony thorax are unremarkable. IMPRESSION: Unremarkable chest x-ray.
[2018-07-17 10:36] LABS: Amphetamine Screen,Urine PRESUMPTIVE NEGATIVE; Benzodiazepines Screen,Urine PRESUMPTIVE NEGATIVE; Methadone Screen,Urine PRESUMPTIVE NEGATIVE; Opiate Screen,Urine PRESUMPTIVE NEGATIVE
[2018-07-17 10:50] LABS: Cannabinoid Screen,Urine PRESUMPTIVE POSITIVE; Cocaine Screen,Urine PRESUMPTIVE POSITIVE
--- NOTE | 2018-07-17 12:56 | Ultrasound Report ---
OB ULTRASOUND History : with abdominal cramps. Technique: Transabdominal ultrasound with Doppler interrogation. Gestation: Single Position: Breech Amniotic Fluid: Normal ASA = 21.1 cm Placenta: Anterior Placental Grade: 0 Heart Rate: 141 BPM Cervical length: 4.9 cm (Normal > 3 cm) BPD: 6.0 cm = 24 w 3 d HC: 22.5 cm = 24 w 4 d AC: 20.5 cm = 25 w 1 d FL: 4.4 cm = 24 w 4 d HC/AC Ratio: 1.1 Cephalic Index: 82.7 Estimated Weight: 736 grams LMP: 01/08/18 Clinical age = 27 w 1 d EDC: 10/15/18 US Gest. Age = 24 w 5 d EDC: 11/01/18 IMPRESSION: Viable, single intrauterine as described. No acute abnormality is detected.
[2018-07-17 14:58] VITALS: BP 132/70
== END 2018-07-17 15:30 | disposition home or self-care (01) ==
LOC: TRG 06:33 → ED 13:38 → EDSTATUS 14:17 → TRG 14:21
PROVIDERS: ATTEND Obstetrics & Gynecology
DX: O99.512 Diseases of the respiratory system complicating pregnancy, second trimester (principal); O26.892 Other specified pregnancy related conditions, second trimester; J45.909 Unspecified asthma, uncomplicated; R94.31 Abnormal electrocardiogram [ECG] [EKG]; F17.200 Nicotine dependence, unspecified, uncomplicated; Z3A.27 27 weeks gestation of pregnancy
CPT/HCPCS: 36415; 59025; 71046; 76805; 80053; 80307; 81001; 82550; 83735; 84443; 84702; 85027; 85610; 86850; 86900; 86901; 93005; 93010; 93970; G0480; 80320

== ENCOUNTER 2018-09-23 14:14 | Inpatient (IN) | payer MEDICAID, OTHER ==
[2018-09-23] MEDS ORDERED: MORPHINE IV PRN ×2 (18:03→22:18)
[2018-09-23] MEDS ORDERED: BENADRYL PO PRN (18:04)
[2018-09-23] MEDS ORDERED: COLACE PO PRN (18:04)
[2018-09-23] MEDS ORDERED: TYLENOL PO PRN (18:04)
[2018-09-23] MEDS ORDERED: REGLAN IV PRN (18:12)
--- NOTE | 2018-09-23 18:22 | History and Physical Report ---
History of Present Illness History of present illness: 38yo at 34 w/7 wks presents in acute abdominal pain writhing and twisting in bed screaming "It hurts. Make it stop." She does not report any issues with her including bleeding or fluid loss. Good movement is reported. It is unclear where she received care. She reports all past vaginal deliveries. When queried further the patient screams out in pain. Past History Past Surgical History: no surgical history - Obstetrical History : 10 Number of Living Children: 9 Medications and Allergies Allergies Allergy/AdvReac Type Severity Reaction Status Date / Time No Known Allergies Allergy Verified 01/09/15 01:28 Active Meds: Active Medications Acetaminophen (Tylenol) 650 mg PO Q4H PRN PRN Reason: Pain MILD(1-3)/Fever >100.5/MARION Diphenhydramine HCl (Benadryl) 25 mg IV Q6H PRN PRN Reason: Itching Docusate Sodium (Colace) 100 mg PO Q12H PRN PRN Reason: Constipation Dextrose/Lactated Ringer's (D5lr) 1,000 mls @ 100 mls/hr IV DIRECT CHADD Morphine Sulfate (Morphine) 2 mg IV Q3H PRN PRN Reason: Pain, Moderate (4-6) Multivitamins/Iron/Calcium ( Vitamin) 1 each PO QDAY CHADD - Vital Signs Vital signs: Vital Signs Temp Pulse Resp BP 97.5 F L 96 H 18 144/88 09/23/18 14:37 09/23/18 14:37 09/23/18 14:37 09/23/18 14:37 Temp Pulse Resp BP Pulse Ox 97.5 F L 85 18 118/83 09/23/18 14:37 09/23/18 15:51 09/23/18 14:37 09/23/18 15:51 - Physical Exam Abdomen: Positive: soft, tenderness - Obstetrical FHR: auscultation normal Cervical Dilatation: 2 Cervical Effacement Percentage: 70 Results All other labs normal. Assessment and Plan - Patient Problems (1) 34 weeks gestation of Current Visit: Yes Status: Acute Plan to address problem: Continuous monitoring. Monitor maternal, status. (2) Acute abdominal pain Current Visit: Yes Status: Acute Plan to address problem: 1. UA 2. OB ultrasound for placental evaluation 3. BPP for well being Based on verbal report from pipe buffer several gallstones ranging 1-1.6cm are present in the gallbladder with possible duct obstruction. 4. Draw labs (CBC, CMP, Lipase, amylase) 5. Request general surgery consult 6. Keep patient NPO during evaluation. Start D5 LR (3) Cholelithiasis Current Visit: Yes Status: Acute
--- NOTE | 2018-09-23 18:50 | Ultrasound Report ---
PROCEDURE: US OB BPP WO NON-STRESS, US OB LIMITED TECHNIQUE: Transverse longitudinal sonograms obtained with cade scale sonography. HISTORY: well being COMPARISONS: None FINDINGS: Biophysical profile: tone: 2 of 2 breathin of 2 movement: 2 of 2 Amniotic fluid volume 2 out of 2 Total biophysical profile score 8 out of 8 Single viable intrauterine gestation identified. heart rate 149 BPM. Cephalic position. Maximum vertical pocket amniotic fluid 3.8 cm. Placenta is right lateral. No previous identified. Incidental maternal finding of cholelithiasis. IMPRESSION: Total biophysical profile score 8 out of 8 Single viable intrauterine gestation identified. Maximum vertical pocket amniotic fluid 3.8 cm. heart rate 149 BPM. Incidental maternal finding of cholelithiasis.. This document is electronically signed by Rachid Aranda MD., Sep 23 2018 06:48:10 PM ET
[2018-09-23 19:43] LABS: Alanine Aminotransferase 46 units/L (7-56); Albumin 3.4 g/dL (3.9-5); BUN/Creatinine Ratio 10; Blood Urea Nitrogen 4 mg/dL (7-17); Calcium 8.7 mg/dL (8.4-10.2); Hemolysis Index 15
[2018-09-23] MEDS: D5LR 1,000 ML IV SCH (20:00)
[2018-09-23 20:14] LABS: Hematocrit 32.5 % (30.3-42.9); Hemoglobin 11.2 gm/dl (10.1-14.3); Mean Corpuscular HGB Conc 34 % (30-34); Mean Corpuscular Volume 101 fl (79-97); Platelet Count 294 K/mm3 (140-440); Red Blood Count 3.22 M/mm3 (3.65-5.03)
[2018-09-23] MEDS: ZOFRAN IV PRN (20:24)
[2018-09-23] MEDS ORDERED: PEPCID IV ONE (20:30)
[2018-09-23] MEDS: ZOSYN/NS 3.375GM/50ML 3.375 GM/50 ML BAG IV SCH (23:03)
[2018-09-23 23:13] LABS: Amphetamine Screen,Urine PRESUMPTIVE NEGATIVE; Benzodiazepines Screen,Urine PRESUMPTIVE NEGATIVE; Methadone Screen,Urine PRESUMPTIVE NEGATIVE
[2018-09-23 23:53] LABS: Cannabinoid Screen,Urine PRESUMPTIVE POSITIVE; Cocaine Screen,Urine PRESUMPTIVE POSITIVE; Opiate Screen,Urine PRESUMPTIVE POSITIVE
[2018-09-24 00:36] LABS: Bilirubin,Urine NEG (Negative); Blood,Urine SM (Negative); Color,Urine Amber (Yellow); Mucus,Urine 3+ /HPF
[2018-09-24] MEDS: TYLENOL #3 PO PRN ×4 (01:21→22:35)
[2018-09-24] MEDS ORDERED: APRESOLINE IV ONE ×2 (02:12→04:56)
[2018-09-24] MEDS: LACTATED RINGERS 1,000 ML IV SCH ×2 (05:21→23:37)
[2018-09-24] MEDS: ZOSYN/NS 3.375GM/50ML 3.375 GM/50 ML BAG IV SCH ×4 (06:30→23:36)
[2018-09-24] MEDS: BENADRYL IV PRN ×3 (06:39→22:36)
[2018-09-24 07:29] LABS: Basophils % (Auto) 0.3 % (0.0-1.8); Eosinophils # (Auto) 0.1 K/mm3 (0.0-0.4); Eosinophils % (Auto) 0.5 % (0.0-4.3); Hematocrit 30.4 % (30.3-42.9); Hemoglobin 10.6 gm/dl (10.1-14.3); Lymphocytes # (Auto) 0.9 K/mm3 (1.2-5.4); Lymphocytes % (Auto) 5.9 % (13.4-35.0); Mean Corpuscular HGB Conc 35 % (30-34); Mean Corpuscular Volume 99 fl (79-97); Monocytes # (Auto) 0.9 K/mm3 (0.0-0.8); Monocytes % (Auto) 6.1 % (0.0-7.3); Platelet Count 278 K/mm3 (140-440); Red Blood Count 3.07 M/mm3 (3.65-5.03); Red Cell Distribution Width 13.6 % (13.2-15.2)
[2018-09-24 07:57] LABS: Alanine Aminotransferase 36 units/L (7-56); Albumin 3.4 g/dL (3.9-5); BUN/Creatinine Ratio 10; Blood Urea Nitrogen 4 mg/dL (7-17); Calcium 8.4 mg/dL (8.4-10.2); Hemolysis Index 8
[2018-09-24] MEDS ORDERED: APRESOLINE ONE (09:49)
[2018-09-24] MEDS: APRESOLINE IV PRN ×2 (09:52→22:21)
[2018-09-24] MEDS ORDERED: NORMODYNE PO SCH (10:00)
[2018-09-24] MEDS ORDERED: LACTATED RINGERS 1,000 ML IV SCH (10:00)
[2018-09-24] MEDS: CELESTONE SOLUSPAN IM SCH (11:23)
[2018-09-24] MEDS: PEPCID IV SCH (11:23)
--- NOTE | 2018-09-24 14:47 | Progress Note ---
Assessment and Plan - Patient Problems (1) 34 weeks gestation of Current Visit: Yes Status: Acute Plan to address problem: monitoring Q8hrs. Monitor maternal, status. (2) Acute abdominal pain Current Visit: Yes Status: Acute (3) Cholelithiasis Current Visit: Yes Status: Acute Plan to address problem: Incidental. Labs mildly elevated. (4) Mesenteric ischemia Current Visit: Yes Status: Acute Plan to address problem: 1. Keep patient NPO. 2. Correct hypoglycemia with D5LR. 3. Management as per General Surgery. If hemodynamically stable, may need exploratory laparotomy. (5) Cocaine abuse affecting Current Visit: Yes Status: Acute Plan to address problem: consulting services associate consult ordered. (6) Hypertension complicating Current Visit: No Status: Acute Plan to address problem: Secondary to cocaine abuse. 24hr urine in progress to exclude underlying preeclampsia. As cocaine metabolized, blood pressures expected to improve. Continue IV Hydralazine prn. Subjective - Subjective Interval history: 38yo at 34 4/7 wks with mesenteric ischemia secondary to cocaine use and incidental gallstones reports continuing abdominal pain. She reports abdominal tightness. She has refused monitoring this morning but reports good movement. She expresses remorse about using "coke" for which she state she takes intranasally. She states she was in [facility] as a youth and wants to change because she takes care of her 7 children who are all A/B students. She reports having a 19yo at [facility]. She denies any symptoms of headache, chest pain, shortness of breath. She requests food and water but understands due to bowel hypoperfusion she is unable to eat. Objective - Vital Signs Vital Signs: Vital Signs - 12hr 09/24/18 09/24/18 09/24/18 02:50 02:59 03:35 Pulse Rate 96 H 96 H 81 Blood Pressure 150/80 168/83 157/90 09/24/18 09/24/18 09/24/18 04:04 04:34 05:04 Pulse Rate 82 83 82 Blood Pressure 187/94 180/101 165/92 09/24/18 09/24/18 09/24/18 05:21 05:34 06:04 Pulse Rate 83 109 H 93 H Blood Pressure 180/101 157/86 169/96 09/24/18 09/24/18 09/24/18 06:34 07:04 07:34 Pulse Rate 83 86 99 H Blood Pressure 153/85 159/94 163/96 09/24/18 09/24/18 09/24/18 08:04 08:34 09:04 Pulse Rate 96 H 88 86 Blood Pressure 177/102 156/95 160/106 09/24/18 09/24/18 09/24/18 09:34 10:04 10:34 Pulse Rate 88 92 H 94 H Blood Pressure 170/101 133/75 136/67 09/24/18 09/24/18 09/24/18 11:04 11:34 12:08 Pulse Rate 100 H 93 H 97 H Blood Pressure 134/68 124/88 113/82 09/24/18 09/24/18 09/24/18 12:34 13:04 14:13 Pulse Rate 100 H 91 H 100 H Blood Pressure 155/85 134/62 142/85 09/24/18 14:34 Pulse Rate 95 H Blood Pressure 182/106 - Exam Abdomen: Present: other (no guarding or rebound) - Labs Labs: Abnormal Labs 09/23/18 09/23/18 09/24/18 18:58 20:00 07:12 WBC 11.8 H 15.0 H RBC 3.22 L 3.07 L MCV 101 H 99 H MCH 35 H 35 H MCHC 35 H Lymph % (Auto) 5.9 L Lymph # 0.9 L [place] # 0.9 H Seg Neutrophils % 87.2 H Seg Neutrophils # 13.1 H Potassium 3.5 L Carbon Dioxide 18 L BUN 4 L Creatinine 0.4 L Glucose AST 58 H Total Protein 6.2 L Albumin 3.4 L 09/24/18 07:12 WBC RBC MCV MCH MCHC Lymph % (Auto) Lymph # [place] # Seg Neutrophils % Seg Neutrophils # Potassium 3.5 L Carbon Dioxide 19 L BUN 4 L Creatinine 0.4 L Glucose 102 H AST Total Protein 5.8 L Albumin 3.4 L Laboratory Results - last 24 hr 09/23/18 09/23/18 09/23/18 18:58 20:00 22:47 WBC 11.8 H RBC 3.22 L Hgb 11.2 Hct 32.5 MCV 101 H MCH 35 H MCHC 34 RDW 14.0 Plt Count 294 Lymph % (Auto) Mechanical Systems Designer [place] % (Auto) Mechanical Systems Designer Eos % (Auto) Mechanical Systems Designer Baso % (Auto) Mechanical Systems Designer Lymph # Mechanical Systems Designer [place] # Mechanical Systems Designer Eos # Mechanical Systems Designer Baso # Mechanical Systems Designer Seg Neutrophils % Mechanical Systems Designer Seg Neutrophils # Mechanical Systems Designer Sodium 138 Potassium 3.5 L Chloride 104.8 Carbon Dioxide 18 L Anion Gap 19 BUN 4 L Creatinine 0.4 L Estimated GFR > 60 BUN/Creatinine Ratio 10 Glucose 94 Lactic Acid Uric Acid Calcium 8.7 Total Bilirubin 0.30 AST 58 H ALT 46 Alkaline Phosphatase 91 Lactate Dehydrogenase Total Protein 6.2 L Albumin 3.4 L Albumin/Globulin Ratio 1.2 Amylase 38 Lipase 22 Urine Color Urine Turbidity Urine pH Ur Specific [place] Urine Protein Urine Glucose (UA) Urine Ketones Urine Blood Urine Nitrite Urine Bilirubin Urine Urobilinogen Ur Leukocyte Esterase Urine WBC (Auto) Urine RBC (Auto) U Epithel Cells (Auto) Ur Transition Epith Cell Urine Mucus Urine Opiates Screen Presumptive positive Urine Methadone Screen Presumptive negative Ur Barbiturates Screen Presumptive negative Ur Phencyclidine Scrn Presumptive negative Ur Amphetamines Screen Presumptive negative U Benzodiazepines Scrn Presumptive negative Urine Cocaine Screen Presumptive positive U Marijuana (THC) Screen Presumptive positive Drugs of Abuse Note Disclamer 09/24/18 09/24/18 09/24/18 00:06 00:06 07:12 WBC 15.0 H RBC 3.07 L Hgb 10.6 Hct 30.4 MCV 99 H MCH 35 H MCHC 35 H RDW 13.6 Plt Count 278 Lymph % (Auto) 5.9 L Ell[place] % (Auto) 6.1 Eos % (Auto) 0.5 Baso % (Auto) 0.3 Lymph # 0.9 L [place] # 0.9 H Eos # 0.1 Baso # 0.0 Seg Neutrophils % 87.2 H Seg Neutrophils # 13.1 H Sodium Potassium Chloride Carbon Dioxide Anion Gap BUN Creatinine Estimated GFR BUN/Creatinine Ratio Glucose Lactic Acid Uric Acid 4.7 Calcium Total Bilirubin AST ALT Alkaline Phosphatase Lactate Dehydrogenase Total Protein Albumin Albumin/Globulin Ratio Amylase Lipase Urine Color Kiah Urine Turbidity Slightly-cloudy Urine pH 5.0 Ur Specific [place] 1.026 Urine Protein 30 mg/dl Urine Glucose (UA) Neg Urine Ketones 80 Urine Blood Sm Urine Nitrite Neg Urine Bilirubin Neg Urine Urobilinogen 2.0 Ur Leukocyte Esterase Neg Urine WBC (Auto) 4.0 Urine RBC (Auto) 7.0 U Epithel Cells (Auto) 6.0 Ur Transition Epith Cell 1 Urine Mucus 3+ Urine Opiates Screen Urine Methadone Screen Ur Barbiturates Screen Ur Phencyclidine Scrn Ur Amphetamines Screen U Benzodiazepines Scrn Urine Cocaine Screen U Marijuana (THC) Screen Drugs of Abuse Note 09/24/18 09/24/18 09/24/18 07:12 09:40 Unknown WBC RBC Hgb Hct MCV MCH MCHC RDW Plt Count Lymph % (Auto) [place] % (Auto) Eos % (Auto) Baso % (Auto) Lymph # [place] # Eos # Baso # Seg Neutrophils % Seg Neutrophils # Sodium 139 Potassium 3.5 L Chloride 104.4 Carbon Dioxide 19 L Anion Gap 19 BUN 4 L Creatinine 0.4 L Estimated GFR > 60 BUN/Creatinine Ratio 10 Glucose 102 H Lactic Acid 1.30 Uric Acid Calcium 8.4 Total Bilirubin 0.50 AST 33 ALT 36 Alkaline Phosphatase 89 Lactate Dehydrogenase 164 Total Protein 5.8 L Albumin 3.4 L Albumin/Globulin Ratio 1.4 Amylase Lipase Urine Color Urine Turbidity Urine pH Ur Specific [place] Urine Protein Urine Glucose (UA) Urine Ketones Urine Blood Urine Nitrite Urine Bilirubin Urine Urobilinogen Ur Leukocyte Esterase Urine WBC (Auto) Urine RBC (Auto) U Epithel Cells (Auto) Ur Transition Epith Cell Urine Mucus Urine Opiates Screen Urine Methadone Screen Ur Barbiturates Screen Ur Phencyclidine Scrn Ur Amphetamines Screen U Benzodiazepines Scrn Urine Cocaine Screen U Marijuana (THC) Screen Drugs of Abuse Note
--- NOTE | 2018-09-24 17:25 | Consultation ---
History of Present Illness Consult date: 09/24/18 Reason for consult: abdominal pain Requesting physician: CHELSEA SALTER Chief complaint: abdominal pain for 2 days - History of present illness History of present illness: 38yo female presents to ED with acute onset of abdominal pain. On at least a weekly basis, she uses THC, cocaine, alcohol, and smokes. Pain began 2 days ago. Associated with N/V. No F/C. +flatus. +BM. pain is all over. She feels very dehydrated. Urine is dark. Past History Past Medical History: No medical history Past Surgical History: No surgical history Social history: smoking, alcohol abuse, other (cocaine, THC) Family history: no significant family history Medications and Allergies Allergies Allergy/AdvReac Type Severity Reaction Status Date / Time No Known Allergies Allergy Verified 01/09/15 01:28 Active Meds: Active Medications Acetaminophen (Tylenol) 500 mg PO Q6H PRN PRN Reason: Pain, Mild (1-3) Acetaminophen/Codeine Phosphate (Tylenol #3) 1 tab PO Q4H PRN PRN Reason: Pain, Moderate (4-6) Last Admin: 09/24/18 14:11 Dose: 1 tab Documented by: Betamethasone Acet/Betameth SodPhos (Celestone Soluspan) 12 mg IM Q24HR CHADD Stop: 09/25/18 10:01 Last Admin: 09/24/18 11:23 Dose: 12 mg Documented by: Diphenhydramine HCl (Benadryl) 25 mg IV Q6H PRN PRN Reason: Itching Last Admin: 09/24/18 14:47 Dose: 25 mg Documented by: Docusate Sodium (Colace) 100 mg PO Q12H PRN PRN Reason: Constipation Famotidine (Pepcid) 20 mg IV QDAY [facility] Last Admin: 09/24/18 11:23 Dose: 20 mg Documented by: Hydralazine HCl (Apresoline) 5 mg IV Q30MIN PRN PRN Reason: Hypertension Last Admin: 09/24/18 09:52 Dose: 5 mg Documented by: Dextrose/Lactated Ringer's (D5lr) 1,000 mls @ 100 mls/hr IV DIRECT CHADD Last Admin: 09/23/18 20:00 Dose: 100 mls/hr Documented by: Piperacillin Sod/Tazobactam Sod (Zosyn/Ns 3.375gm/50ml) 3.375 gm in 50 mls @ 100 mls/hr IV Q6HR CHADD; Protocol Last Admin: 09/24/18 12:33 Dose: 100 mls/hr Documented by: Lactated Ringer's (Lactated Ringers) 1,000 mls @ 100 mls/hr IV DIRECT CHADD Last Admin: 09/24/18 05:21 Dose: 100 mls/hr Documented by: Lactated Ringer's (Lactated Ringers) 1,000 mls @ 999 mls/hr IV DIRECT CHADD Stop: 09/25/18 11:01 Metoclopramide HCl (Reglan) 5 mg IV Q6H PRN PRN Reason: Dyspepsia Last Admin: 09/24/18 06:39 Dose: 5 mg Documented by: Multivitamins/Iron/Calcium ( Vitamin) 1 each PO QDAY CHADD Ondansetron HCl (Zofran) 4 mg IV Q8H PRN PRN Reason: Nausea And Vomiting Last Admin: 09/23/18 20:24 Dose: 4 mg Documented by: Review of Systems - Constitutional no fever, no chills - EENT Ears, nose, mouth and throat: other (dry mouth) - Cardiovascular no chest pain, no rapid/irregular heart beat - Respiratory no cough, no shortness of breath - Gastrointestinal abdominal pain, nausea, vomiting, no change in bowel habits, no hematemesis, no coffee ground emesis, no BRBPR, no melena, no hematochezia - Genitourinary Genitourinary: no dysuria - Muskuloskeletal low back pain Exam Vital Signs Temp Pulse Resp BP 97.5 F L 96 H 18 144/88 09/23/18 14:37 09/23/18 14:37 09/23/18 14:37 09/23/18 14:37 - General physical appearance Positive: no distress, moderate pain - Eyes Positive: normal occular movement - Respiratory Positive: normal expansion, normal respiratory effort, clear to auscultation - Cardiovascular Rhythm: regular - Abdomen Abdomen: Present: soft, tender (throughout. More in the upper abdomen. +pelvic shake tenderness), bowel sounds hypoactive, other (enlarged uterus). Absent: guarding, rigid, wound, surgical scars - Integumentary no rash, no growths, no abnormal pigmentation - Neurologic Neurologic: alert and oriented to time, place and person, motor strength and sensation are grossly intact - Psychiatric Psychiatric: cooperative Results - Labs 09/24/18 07:12 09/24/18 07:12 Abnormal lab results 09/23/18 09/23/18 09/24/18 Range/Units 18:58 20:00 07:12 WBC 11.8 H 15.0 H (4.5-11.0) K/mm3 RBC 3.22 L 3.07 L (3.65-5.03) M/mm3 MCV 101 H 99 H (79-97) fl MCH 35 H 35 H (28-32) pg MCHC 35 H (30-34) % Lymph % (Auto) 5.9 L (13.4-35.0) % Lymph # 0.9 L (1.2-5.4) K/mm3 Loving # 0.9 H (0.0-0.8) K/mm3 Seg Neutrophils % 87.2 H (40.0-70.0) % Seg Neutrophils # 13.1 H (1.8-7.7) K/mm3 Potassium 3.5 L (3.6-5.0) mmol/L Carbon Dioxide 18 L (22-30) mmol/L BUN 4 L (7-17) mg/dL Creatinine 0.4 L (0.7-1.2) mg/dL Glucose (65-100) mg/dL AST 58 H (5-40) units/L Total Protein 6.2 L (6.3-8.2) g/dL Albumin 3.4 L (3.9-5) g/dL 09/24/18 Range/Units 07:12 WBC (4.5-11.0) K/mm3 RBC (3.65-5.03) M/mm3 MCV (79-97) fl MCH (28-32) pg MCHC (30-34) % Lymph % (Auto) (13.4-35.0) % Lymph # (1.2-5.4) K/mm3 Loving # (0.0-0.8) K/mm3 Seg Neutrophils % (40.0-70.0) % Seg Neutrophils # (1.8-7.7) K/mm3 Potassium 3.5 L (3.6-5.0) mmol/L Carbon Dioxide 19 L (22-30) mmol/L BUN 4 L (7-17) mg/dL Creatinine 0.4 L (0.7-1.2) mg/dL Glucose 102 H (65-100) mg/dL AST (5-40) units/L Total Protein 5.8 L (6.3-8.2) g/dL Albumin 3.4 L (3.9-5) g/dL Diabetes panel 09/23/18 09/24/18 Range/Units 18:58 07:12 Sodium 138 139 (137-145) mmol/L Potassium 3.5 L 3.5 L (3.6-5.0) mmol/L Chloride 104.8 104.4 (98-107) mmol/L Carbon Dioxide 18 L 19 L (22-30) mmol/L BUN 4 L 4 L (7-17) mg/dL Creatinine 0.4 L 0.4 L (0.7-1.2) mg/dL Glucose 94 102 H (65-100) mg/dL Calcium 8.7 8.4 (8.4-10.2) mg/dL AST 58 H 33 (5-40) units/L ALT 46 36 (7-56) units/L Alkaline Phosphatase 91 89 (35-129) units/L Total Protein 6.2 L 5.8 L (6.3-8.2) g/dL Albumin 3.4 L 3.4 L (3.9-5) g/dL Calcium panel 09/23/18 09/24/18 Range/Units 18:58 07:12 Calcium 8.7 8.4 (8.4-10.2) mg/dL Albumin 3.4 L 3.4 L (3.9-5) g/dL Pituitary panel 09/23/18 09/24/18 Range/Units 18:58 07:12 Sodium 138 139 (137-145) mmol/L Potassium 3.5 L 3.5 L (3.6-5.0) mmol/L Chloride 104.8 104.4 (98-107) mmol/L Carbon Dioxide 18 L 19 L (22-30) mmol/L BUN 4 L 4 L (7-17) mg/dL Creatinine 0.4 L 0.4 L (0.7-1.2) mg/dL Glucose 94 102 H (65-100) mg/dL Calcium 8.7 8.4 (8.4-10.2) mg/dL Adrenal panel 09/23/18 09/24/18 Range/Units 18:58 07:12 Sodium 138 139 (137-145) mmol/L Potassium 3.5 L 3.5 L (3.6-5.0) mmol/L Chloride 104.8 104.4 (98-107) mmol/L Carbon Dioxide 18 L 19 L (22-30) mmol/L BUN 4 L 4 L (7-17) mg/dL Creatinine 0.4 L 0.4 L (0.7-1.2) mg/dL Glucose 94 102 H (65-100) mg/dL Calcium 8.7 8.4 (8.4-10.2) mg/dL Total Bilirubin 0.30 0.50 (0.1-1.2) mg/dL AST 58 H 33 (5-40) units/L ALT 46 36 (7-56) units/L Alkaline Phosphatase 91 89 (35-129) units/L Total Protein 6.2 L 5.8 L (6.3-8.2) g/dL Albumin 3.4 L 3.4 L (3.9-5) g/dL - Imaging US - abdomen: report reviewed, image reviewed Assessment and Plan - Patient Problems (1) Acute abdominal pain Current Visit: Yes Status: Acute Plan to address problem: Pt with significant pain. The US is not ideal for RUQ eval. LFTs are normal. Does not have focal tenderness on exam. Her history and exam are very suggestive for mesenteric ischemia due to her cocaine use. Lactic acid normal. As this point, would aggressively resuscitate, pain control, and labs in AM. If she become hemodynamically unstable, may need to do emergency ex lap. Will follow with you. Please call with questions. Discussed case with Dr. Salter. Time=40min
[2018-09-25] MEDS: ZOSYN/NS 3.375GM/50ML 3.375 GM/50 ML BAG IV SCH ×4 (05:25→23:28)
[2018-09-25] MEDS: LACTATED RINGERS 1,000 ML IV SCH ×3 (05:26→16:40)
[2018-09-25 05:58] LABS: Basophils % (Auto) 0.1 % (0.0-1.8); Hematocrit 28.9 % (30.3-42.9); Hemoglobin 9.8 gm/dl (10.1-14.3); Lymphocytes # (Auto) 0.9 K/mm3 (1.2-5.4); Lymphocytes % (Auto) 5.9 % (13.4-35.0); Mean Corpuscular HGB Conc 34 % (30-34); Mean Corpuscular Volume 101 fl (79-97); Monocytes # (Auto) 0.9 K/mm3 (0.0-0.8); Monocytes % (Auto) 5.7 % (0.0-7.3); Platelet Count 268 K/mm3 (140-440); Red Blood Count 2.87 M/mm3 (3.65-5.03); Red Cell Distribution Width 14.2 % (13.2-15.2)
[2018-09-25 06:13] LABS: BUN/Creatinine Ratio 5; Blood Urea Nitrogen 2 mg/dL (7-17); Calcium 8.6 mg/dL (8.4-10.2); Hemolysis Index 0
[2018-09-25] MEDS: TYLENOL PO PRN (06:19)
[2018-09-25] MEDS ORDERED: PITOCin/NS 20 UNIT/1000ML DRIP 20,000 MILLIUNITS/1,000 ML BAG IV ONE (06:58)
--- NOTE | 2018-09-25 09:14 | Progress Note ---
Assessment and Plan - Patient Problems (1) Acute abdominal pain Current Visit: Yes Status: Acute Plan to address problem: Pt stable. Abdominal exam is better today. I think our risk for permanent damage to the intestines from ischemia has decreased. Would still continue with resuscitation. In talking to the staff today, it does not appear that the re suscitation orders were followed yesterday. Will order another bolus. Labs in AM. Encourage her to get out of bed, if possible. Once pain is better and she is passing flatus, will start clear liquid diet. Will follow with you. Please call with questions. Time=10min Subjective Date of service: 09/25/18 Patient Reports: Positive: no new complaints, pain is less (when laying still. ), no flatus, no bowel movement, other (still thirsty). Negative: nausea, vomiting Objective Vital Signs - 12hr 09/24/18 09/24/18 09/24/18 21:34 21:40 22:09 Pulse Rate 93 H 91 H 97 H Blood Pressure 166/92 126/70 147/102 09/24/18 09/24/18 09/24/18 22:20 22:21 22:26 Pulse Rate 96 H 96 H 94 H Blood Pressure 164/96 164/96 154/77 09/24/18 09/24/18 09/24/18 22:58 23:32 23:58 Pulse Rate 104 H 101 H 105 H Blood Pressure 142/75 133/74 130/73 09/25/18 09/25/18 09/25/18 00:28 00:58 01:28 Pulse Rate 100 H 97 H 103 H Blood Pressure 146/80 142/88 142/87 09/25/18 09/25/18 09/25/18 01:58 02:28 02:58 Pulse Rate 96 H 99 H 100 H Blood Pressure 143/87 131/75 136/70 09/25/18 09/25/18 09/25/18 03:28 03:58 04:28 Pulse Rate 104 H 100 H 102 H Blood Pressure 137/66 138/63 133/77 09/25/18 09/25/18 09/25/18 04:58 05:29 05:58 Pulse Rate 101 H 101 H 93 H Blood Pressure 143/80 131/84 158/99 05/06/19 05/06/19 05/06/19 06:28 06:58 07:28 Pulse Rate 93 H 100 H 96 H Blood Pressure 158/88 171/104 148/104 09/25/18 09/25/18 09/25/18 07:31 07:58 08:28 Pulse Rate 97 H 96 H 104 H Blood Pressure 147/98 158/87 133/74 09/25/18 08:58 Pulse Rate 95 H Blood Pressure 137/82 - General physical appearance no distress, no pain, other (looks better today) - Eyes normal occular movement - Respiratory normal expansion, normal respiratory effort - Abdomen soft, tender (but less than yesterday), bowel sounds hypoactive (starting to come back), not guarding, not rigid - Integumentary no rash, no growths, no abnormal pigmentation - Psychiatric oriented to time, oriented to person, oriented to place, speech is normal, memory intact - Labs 09/25/18 05:49 09/25/18 05:49 Diabetes panel 09/25/18 Range/Units 05:49 Sodium 140 (137-145) mmol/L Potassium 3.2 L (3.6-5.0) mmol/L Chloride 105.9 (98-107) mmol/L Carbon Dioxide 20 L (22-30) mmol/L BUN 2 L (7-17) mg/dL Creatinine 0.4 L (0.7-1.2) mg/dL Glucose 95 (65-100) mg/dL Calcium 8.6 (8.4-10.2) mg/dL Calcium panel 09/25/18 Range/Units 05:49 Calcium 8.6 (8.4-10.2) mg/dL Pituitary panel 09/25/18 Range/Units 05:49 Sodium 140 (137-145) mmol/L Potassium 3.2 L (3.6-5.0) mmol/L Chloride 105.9 (98-107) mmol/L Carbon Dioxide 20 L (22-30) mmol/L BUN 2 L (7-17) mg/dL Creatinine 0.4 L (0.7-1.2) mg/dL Glucose 95 (65-100) mg/dL Calcium 8.6 (8.4-10.2) mg/dL Adrenal panel 09/25/18 Range/Units 05:49 Sodium 140 (137-145) mmol/L Potassium 3.2 L (3.6-5.0) mmol/L Chloride 105.9 (98-107) mmol/L Carbon Dioxide 20 L (22-30) mmol/L BUN 2 L (7-17) mg/dL Creatinine 0.4 L (0.7-1.2) mg/dL Glucose 95 (65-100) mg/dL Calcium 8.6 (8.4-10.2) mg/dL
--- NOTE | 2018-09-25 09:34 | Progress Note ---
Assessment and Plan - Patient Problems (1) 34 weeks gestation of Current Visit: Yes Status: Acute (2) Cholelithiasis Current Visit: Yes Status: Acute (3) Biliary colic Current Visit: Yes Status: Acute (4) Mesenteric ischemia Current Visit: Yes Status: Acute Plan to address problem: Patient is being followed by general surgery. Dr. Harmon recommended IV hydration and analgesics PRN. There is not sign of biliary obstruction at this time. But will continue zosyn for leukocytosis. Will F/U CBC tomorrow. When the patient's pain gets better, will advance diet. (5) Cocaine abuse affecting Current Visit: Yes Status: Acute Plan to address problem: Send panel, HIV, HepB, RPR, T&S. (6) No care in current Current Visit: No Status: Acute (7) Grand multipara Current Visit: No Status: Acute (8) AMA (advanced maternal age) multigravida 35+ Current Visit: Yes Status: Acute Plan to address problem: No care. So, no genetics testing was done. (9) UTI (urinary tract infection) Current Visit: Yes Status: Acute Subjective - Subjective Date of service: 09/25/18 Principal diagnosis: SIUP at 34 weeks with drug abuse, abd pain. Interval history: Patient is a 38 year old female with unkwwon EDC at 34 weeks gestation based on recent sonogram dating. She was admitted for upper abdominal pain, vomiting, elevated BP. On admission, her toxicology was positive for cocaine, marijuana, alcohol. WBC elevated. RUQ sono showed cholelothiasis but bilirubin and alkaline phosphatase were normal. She has had no care. She denied any contractions or fluid leakage. Sonogram showed the baby to be VTX, BPP 8/8. Toxemia labs were normal. Surgical consult was called. Dr. Harmon felt that the patient has mesenteric ischemia from the cocaine use. Her BP had normalized after hydralazine. Celestone for given for FLM. This AM, patient reports feeling better. Objective - Vital Signs Vital Signs: Vital Signs - 12hr 09/24/18 09/24/18 09/24/18 21:34 21:40 22:09 Temperature Pulse Rate 93 H 91 H 97 H Respiratory Rate Blood Pressure 166/92 126/70 147/102 0509/24/18 09/24/18 22:20 22:21 22:26 Temperature Pulse Rate 96 H 96 H 94 H Respiratory Rate Blood Pressure 164/96 164/96 154/77 09/24/18 09/24/18 09/24/18 22:58 23:32 23:58 Temperature Pulse Rate 104 H 101 H 105 H Respiratory Rate Blood Pressure 142/75 133/74 130/73 09/25/18 09/25/18 09/25/18 00:28 00:58 01:28 Temperature Pulse Rate 100 H 97 H 103 H Respiratory Rate Blood Pressure 146/80 142/88 142/87 09/25/18 09/25/18 09/25/18 01:58 02:28 02:58 Temperature Pulse Rate 96 H 99 H 100 H Respiratory Rate Blood Pressure 143/87 131/75 136/70 09/25/18 09/25/18 09/25/18 03:28 03:58 04:28 Temperature Pulse Rate 104 H 100 H 102 H Respiratory Rate Blood Pressure 137/66 138/63 133/77 09/25/18 09/25/18 09/25/18 04:58 05:29 05:58 Temperature Pulse Rate 101 H 101 H 93 H Respiratory Rate Blood Pressure 143/80 131/84 158/99 09/25/18 09/25/18 09/25/18 06:28 06:58 07:28 Temperature Pulse Rate 93 H 100 H 96 H Respiratory Rate Blood Pressure 158/88 171/104 148/104 09/25/18 09/25/18 09/25/18 07:31 07:58 08:28 Temperature Pulse Rate 97 H 96 H 104 H Respiratory Rate Blood Pressure 147/98 158/87 133/74 09/25/18 09/25/18 08:58 09:16 Temperature 98.0 F Pulse Rate 95 H Respiratory 16 Rate Blood Pressure 137/82 - Exam Cardiovascular: Normal S1, Normal S2 Lungs: Clear to auscultation Vulva: both: normal FHR: category 1 Uterine Contraction Monitor Mode: External Cervical Dilatation: 0 Uterine Contraction Pattern: Absent Deep Tendon Reflex Grade: Normal +2 - Labs Labs: Abnormal Labs 09/23/18 09/23/18 09/24/18 18:58 20:00 07:12 WBC 11.8 H 15.0 H RBC 3.22 L 3.07 L Hgb Hct MCV 101 H 99 H MCH 35 H 35 H MCHC 35 H Lymph % (Auto) 5.9 L Lymph # 0.9 L Collin # 0.9 H Seg Neutrophils % 87.2 H Seg Neutrophils # 13.1 H Potassium 3.5 L Carbon Dioxide 18 L BUN 4 L Creatinine 0.4 L Glucose AST 58 H Total Protein 6.2 L Albumin 3.4 L 09/24/18 09/25/18 09/25/18 07:12 05:49 05:49 WBC 15.5 H RBC 2.87 L Hgb 9.8 L Hct 28.9 L MCV 101 H MCH 34 H MCHC Lymph % (Auto) 5.9 L Lymph # 0.9 L Collin # 0.9 H Seg Neutrophils % 88.3 H Seg Neutrophils # 13.6 H Potassium 3.5 L 3.2 L Carbon Dioxide 19 L 20 L BUN 4 L 2 L Creatinine 0.4 L 0.4 L Glucose 102 H AST Total Protein 5.8 L Albumin 3.4 L Laboratory Results - last 24 hr 09/24/18 09/24/18 09/25/18 09:40 17:07 00:09 WBC RBC Hgb Hct MCV MCH MCHC RDW Plt Count Lymph % (Auto) Collin % (Auto) Eos % (Auto) Baso % (Auto) Lymph # Collin # Eos # Baso # Seg Neutrophils % Seg Neutrophils # Sodium Potassium Chloride Carbon Dioxide Anion Gap BUN Creatinine Estimated GFR BUN/Creatinine Ratio Glucose POC Glucose 100 91 Lactic Acid 1.30 Calcium 09/25/18 09/25/18 09/25/18 05:43 05:49 05:49 WBC 15.5 H RBC 2.87 L Hgb 9.8 L Hct 28.9 L MCV 101 H MCH 34 H MCHC 34 RDW 14.2 Plt Count 268 Lymph % (Auto) 5.9 L Collin % (Auto) 5.7 Eos % (Auto) 0.0 Baso % (Auto) 0.1 Lymph # 0.9 L Collin # 0.9 H Eos # 0.0 Baso # 0.0 Seg Neutrophils % 88.3 H Seg Neutrophils # 13.6 H Sodium 140 Potassium 3.2 L Chloride 105.9 Carbon Dioxide 20 L Anion Gap 17 BUN 2 L Creatinine 0.4 L Estimated GFR > 60 BUN/Creatinine Ratio 5 Glucose 95 POC Glucose 86 Lactic Acid Calcium 8.6 - Results US- obstetric: report reviewed
[2018-09-25] MEDS: D5LR 1,000 ML IV SCH (10:09)
[2018-09-25] MEDS: PRENATAL VITAMIN PO SCH (10:12)
[2018-09-25] MEDS: CELESTONE SOLUSPAN IM SCH (11:36)
[2018-09-25] MEDS: PEPCID IV SCH (12:13)
[2018-09-25] MEDS: TYLENOL #3 PO PRN ×2 (12:17→19:27)
--- NOTE | 2018-09-25 13:15 | Ultrasound Report ---
OB sonogram: History: Hypertension. Findings: Gestation: Single Position: Cephalic Amniotic Fluid: ASA = 7.7 cm Heart Rate: 144 BPM BPD: 8 cm = 32 w d HC: 2.9 cm = 31 w 6 d AC: 31 cm = 35 w d FL: 6.9 cm = 55 w 2 d HC/AC Ratio: 0.9 Cephalic Index: 87.3 Estimated Weight: 2423 grams Clinical age = 37 w d EDC: 10/16/18 US Gest. Age = 33 w 4 d EDC: 11/09/18
[2018-09-25 13:37] LABS: Uric Acid 3.1 mg/dL (3.5-7.6)
[2018-09-25] MEDS: BENADRYL IV PRN (19:28)
[2018-09-25] MEDS ORDERED: MYLICON PO ONE (23:57)
[2018-09-26] MEDS: LACTATED RINGERS 1,000 ML IV SCH ×2 (02:23→15:41)
[2018-09-26] MEDS: TYLENOL #3 PO PRN ×3 (02:24→15:39)
--- NOTE | 2018-09-26 09:10 | Progress Note ---
Assessment and Plan - Patient Problems (1) Acute abdominal pain Current Visit: Yes Status: Acute Plan to address problem: Pt stable. Abdominal exam is better today. I think our risk for permanent damage to the intestines from ischemia continues to decrease. Regular diet has already been ordered by the primary team. Would observe for any intolerance as she is just getting over her ischemic state. If she starts to have issues of pain, bloating, nausea, etc. would decrease her diet to clear liquid diet. She appears to be doing well. We'll sign off at this point. Please call with questions. Time=10min Subjective Date of service: 09/26/18 Patient Reports: Positive: no new complaints, feels better, pain is less, tolerating liquids well (despite NPO order - was given liquids last night), flatus, bowel movement. Negative: nausea, vomiting Objective Vital Signs - 12hr 09/25/18 09/25/18 09/26/18 23:23 23:24 02:24 Temperature 98.7 F Pulse Rate 98 H 98 H Respiratory 16 18 Rate Blood Pressure 132/77 Blood Pressure 132/77 [Right] O2 Sat by Pulse Oximetry 09/26/18 09/26/18 09/26/18 06:00 07:59 08:20 Temperature 97.9 F Pulse Rate 94 H 91 H Respiratory 20 20 Rate Blood Pressure 134/79 Blood Pressure 174/96 [Right] O2 Sat by Pulse 100 Oximetry 09/26/18 09/26/18 08:31 08:47 Temperature Pulse Rate 91 H 81 Respiratory Rate Blood Pressure 174/96 152/81 Blood Pressure [Right] O2 Sat by Pulse Oximetry - General physical appearance no distress, no pain, other (sitting up in chair. Looks better) - Respiratory normal expansion, normal respiratory effort - Abdomen soft, tender (minimal in LUQ. much improved!), bowel sounds hypoactive, not guarding, not rigid - Integumentary no rash, no growths, no abnormal pigmentation - Psychiatric oriented to time, oriented to person, oriented to place, speech is normal, memory intact - Labs 09/25/18 05:49 09/25/18 05:49 Diabetes panel 09/25/18 Range/Units 12:55 AST 37 (5-40) units/L ALT 40 (7-56) units/L Adrenal panel 09/25/18 Range/Units 12:55 AST 37 (5-40) units/L ALT 40 (7-56) units/L
[2018-09-26] MEDS: PRENATAL VITAMIN PO SCH (09:26)
--- NOTE | 2018-09-26 09:33 | Progress Note ---
Assessment and Plan - Patient Problems (1) 34 weeks gestation of Current Visit: Yes Status: Acute Plan to address problem: NST: Category I heart tracing. (2) Acute abdominal pain Current Visit: Yes Status: Acute (3) Cholelithiasis Current Visit: Yes Status: Acute (4) Mesenteric ischemia Current Visit: Yes Status: Acute (5) Cocaine abuse affecting Current Visit: Yes Status: Acute (6) Hypertension complicating Current Visit: No Status: Acute Plan to address problem: Labile BPs. Per nursing staff elevations are noted when patient is on the phone and conversing with family. Start Methyldopa. (7) Anemia affecting Current Visit: Yes Status: Acute Plan to address problem: When bowel status returns to normal, will start iron. Subjective - Subjective Principal diagnosis: SIUP at 34 weeks with drug abuse, abd pain. Interval history: 38yo at 34 4/7 wks with mesenteric ischemia secondary to cocaine use and incidental gallstones reports continuing abdominal pain. Today she states she feels better but has persistent left flank, abdominal pain. She is eating eggs and sausage sitting up in bed. She has passed flatus and had a bowel movement. She has ambulated and walked the halls. Objective - Vital Signs Vital Signs: Vital Signs - 12hr 09/25/18 09/25/18 09/26/18 23:23 23:24 02:24 Temperature 98.7 F Pulse Rate 98 H 98 H Respiratory 16 18 Rate Blood Pressure 132/77 Blood Pressure 132/77 [Right] O2 Sat by Pulse Oximetry 09/26/18 09/26/18 09/26/18 06:00 07:59 08:20 Temperature 97.9 F Pulse Rate 94 H 91 H Respiratory 20 20 Rate Blood Pressure 134/79 Blood Pressure 174/96 [Right] O2 Sat by Pulse 100 Oximetry 09/26/18 09/26/18 08:31 08:47 Temperature Pulse Rate 91 H 81 Respiratory Rate Blood Pressure 174/96 152/81 Blood Pressure [Right] O2 Sat by Pulse Oximetry - Labs Labs: Abnormal Labs 09/23/18 09/23/18 09/24/18 18:58 20:00 07:12 WBC 11.8 H 15.0 H RBC 3.22 L 3.07 L Hgb Hct MCV 101 H 99 H MCH 35 H 35 H MCHC 35 H Lymph % (Auto) 5.9 L Lymph # 0.9 L Cooper # 0.9 H Seg Neutrophils % 87.2 H Seg Neutrophils # 13.1 H Potassium 3.5 L Carbon Dioxide 18 L BUN 4 L Creatinine 0.4 L Glucose POC Glucose Uric Acid AST 58 H Total Protein 6.2 L Albumin 3.4 L 09/24/18 09/25/18 09/25/18 07:12 05:49 05:49 WBC 15.5 H RBC 2.87 L Hgb 9.8 L Hct 28.9 L MCV 101 H MCH 34 H MCHC Lymph % (Auto) 5.9 L Lymph # 0.9 L Cooper # 0.9 H Seg Neutrophils % 88.3 H Seg Neutrophils # 13.6 H Potassium 3.5 L 3.2 L Carbon Dioxide 19 L 20 L BUN 4 L 2 L Creatinine 0.4 L 0.4 L Glucose 102 H POC Glucose Uric Acid AST Total Protein 5.8 L Albumin 3.4 L 09/25/18 09/26/18 12:55 06:04 WBC RBC Hgb Hct MCV MCH MCHC Lymph % (Auto) Lymph # Cooper # Seg Neutrophils % Seg Neutrophils # Potassium Carbon Dioxide BUN Creatinine Glucose POC Glucose 120 H Uric Acid 3.1 L AST Total Protein Albumin Laboratory Results - last 24 hr 09/25/18 09/25/18 09/25/18 11:50 12:55 12:55 POC Glucose 93 Uric Acid 3.1 L AST 37 ALT 40 Lactate Dehydrogenase 147 Urine Total Volume Ur Total Protein 24 Hr Urine Total Protein RPR Hep Bs Antigen Non-reactive HIV 1&2 Antibody Rapid HIV P24 Antigen Blood Type Antibody Screen 09/25/18 09/25/18 09/25/18 12:55 12:55 12:55 POC Glucose Uric Acid AST ALT Lactate Dehydrogenase Urine Total Volume Ur Total Protein 24 Hr Urine Total Protein RPR Nonreactive Hep Bs Antigen HIV 1&2 Antibody Rapid Non react HIV P24 Antigen Non react Blood Type AB POSITIVE Antibody Screen Negative 09/25/18 09/26/18 Unknown 06:04 POC Glucose 120 H Uric Acid AST ALT Lactate Dehydrogenase Urine Total Volume 2500 Ur Total Protein 24 Hr 175.00 Urine Total Protein 7 RPR Hep Bs Antigen HIV 1&2 Antibody Rapid HIV P24 Antigen Blood Type Antibody Screen
[2018-09-26 11:13] LABS: Basophils % (Auto) 0.1 % (0.0-1.8); Eosinophils % (Auto) 0.1 % (0.0-4.3); Hematocrit 24.4 % (30.3-42.9); Hemoglobin 8.2 gm/dl (10.1-14.3); Lymphocytes # (Auto) 0.8 K/mm3 (1.2-5.4); Lymphocytes % (Auto) 6.2 % (13.4-35.0); Mean Corpuscular HGB Conc 34 % (30-34); Mean Corpuscular Volume 101 fl (79-97); Monocytes % (Auto) 7.5 % (0.0-7.3); Platelet Count 248 K/mm3 (140-440); Red Blood Count 2.42 M/mm3 (3.65-5.03); Red Cell Distribution Width 14.1 % (13.2-15.2)
[2018-09-26] MEDS: ZOSYN/NS 3.375GM/50ML 3.375 GM/50 ML BAG IV SCH (13:51)
[2018-09-26] MEDS: BENADRYL IV PRN (15:40)
[2018-09-26] MEDS: ZOFRAN IV PRN (15:40)
--- NOTE | 2018-09-26 17:31 | Event Note ---
Contacted by nursing staff for patient's concern for left sided abdominal pain. States she can not go home until she receives an Xray. Mary, nursing staff, contacted general surgery who indicated her worsening pain is not GI related because does not correlate with diet advance. Patient has no vaginal bleeding and no GI symptoms. She states pain feels like gas. Plan: 1. L abdominal pain Order OB ultrasound evaluate for placental abruption. Start Methyldopa for labile blood pressures. If US shows no signs of abruption and no clinical signs will discharge home. Patient will need to establish care and f/u in OB clinic within one week. 2. Cocaine/THC abuse in Discussed risk of cocaine in and patient plans to discontinue illicit drug use. State she did not know what she was going to her baby. She also states she did not set up post-discharge care with Case Management because she was asked about her source of cocaine which she didn't want to answer.
--- NOTE | 2018-09-26 21:42 | Event Note ---
Ultrasound reveals no sonographic evidence of plaenta abruption. New dose of Methyldopa to begin at 10pm. If patient stable and BP controlled after new blood pressure medicine; first dose 10pm. Plan: Discharge home in AM with close follow-up. Low normal ASA 7.7. Give patient movement precautions and needs testing for remaining of biweekly.
[2018-09-26] MEDS: ALDOMET PO SCH (22:37)
--- NOTE | 2018-09-27 00:16 | Ultrasound Report ---
PROCEDURE: US OB LIMITED TECHNIQUE: A limited transabdominal exam was obtained for evaluation of the placenta. HISTORY: LLQ pain, evaluate for placental abruption COMPARISONS: 09/23/2018 FINDINGS: The placenta is on the right lateral wall and is grade 2. There is no evidence of placental abruption . The heart rate is 141 BPM. The fetus is in cephalic presentation. IMPRESSION: No evidence of placental abruption. Cephalic presentation. The heart rate is 141 BPM.. This document is electronically signed by Falvio Romero MD., Sep 27 2018 12:14:51 AM ET
--- NOTE | 2018-09-27 08:08 | Ultrasound Report ---
ULTRASOUND OB VELOCIMETRY UMBILICAL ARTERY: HISTORY: HTN. COMPARISON: None similar. FINDINGS: Transabdominal imaging with spectral Doppler interrogation. 3 separate segments of the cord were evaluated. heart rate measures 138 beats per minute. Free loop S/D ratio in the examined loops are 3.12, 3.44 and 2.82 with average S/D ratio = 3.13. Normal waveform. Flow pattern is persistent. Free loop RI in the examined loops are 0.68, 0.71 and 0.65 with average RI= 0.68. Normal waveform. Flow pattern is persistent. CONCLUSION: Normal and persistent spectral waveforms are demonstrated throughout. The S/D ratio average measures 3.13. The resistive index average measures 0.68. Thank you for the opportunity to participate in this patient's care.
[2018-09-27] MEDS: PRENATAL VITAMIN PO SCH (10:06)
[2018-09-27] MEDS: ALDOMET PO SCH ×2 (10:06→22:07)
[2018-09-27] MEDS: PEPCID IV SCH (11:30)
[2018-09-27] MEDS: ZOSYN/NS 3.375GM/50ML 3.375 GM/50 ML BAG IV SCH ×3 (11:31→22:10)
[2018-09-27] MEDS: D5LR 1,000 ML IV SCH ×2 (11:32→21:40)
[2018-09-27] MEDS: LACTATED RINGERS 1,000 ML IV SCH ×2 (11:32→15:57)
[2018-09-27 16:53] LABS: Basophils % (Auto) 0.4 % (0.0-1.8); Eosinophils % (Auto) 0.6 % (0.0-4.3); Hematocrit 25.5 % (30.3-42.9); Hemoglobin 8.6 gm/dl (10.1-14.3); Lymphocytes # (Auto) 1.2 K/mm3 (1.2-5.4); Lymphocytes % (Auto) 17.1 % (13.4-35.0); Mean Corpuscular HGB Conc 34 % (30-34); Mean Corpuscular Volume 101 fl (79-97); Monocytes # (Auto) 0.7 K/mm3 (0.0-0.8); Monocytes % (Auto) 9.9 % (0.0-7.3); Platelet Count 242 K/mm3 (140-440); Red Blood Count 2.51 M/mm3 (3.65-5.03); Red Cell Distribution Width 14.2 % (13.2-15.2)
--- NOTE | 2018-09-27 17:42 | Ultrasound Report ---
PROCEDURE: US OB BPP WO NON-STRESS TECHNIQUE: Limited OB ultrasound for BPP HISTORY: wellbeing COMPARISONS: Ultrasound OB 09/26/2018 FINDINGS: LMP 01/09/2018 clinical Age : 37W 2 D LMP EDC 01/09/2018 Biophysical profile scoring [2]movement [2]tone [0]breathing [2]fluid 6/8 overall score Presentation: Cephalic Activity: Monitored Placental location: Anterior towards the fundus Cardiac motion: 135 BPM using M-mode doppler Amniotic Fluid Volume: Adequate ASA 11.3 cm. IMPRESSION: Single viable at 37 weeks 2 days with 6/8 biophysical profile score This document is electronically signed by Elzbieta Degroot MD., Sep 27 2018 05:40:36 PM ET
--- NOTE | 2018-09-27 18:14 | Ultrasound Report ---
PROCEDURE: US OB LIMITED TECHNIQUE: Real-time limited sonographic examination was performed for evaluation of each fetus with image documentation (1 or more fetuses). HISTORY: wellbeing COMPARISONS: 09/26/2018 . FINDINGS: FETUS IUP: Single living intrauterine . Position: Cephalic . Amniotic fluid volume: Amniotic fluid index measures 11.3 cm Heart rate and rhythm: 135 BPM, Regular . IMPRESSION: Amniotic fluid index measures 11.3 cm This document is electronically signed by Lauren Baeza MD., Sep 27 2018 06:12:22 PM ET
--- NOTE | 2018-09-27 19:27 | Progress Note ---
Assessment and Plan - Patient Problems (1) 34 weeks gestation of Current Visit: Yes Status: Acute (2) Cholelithiasis Current Visit: Yes Status: Acute (3) Biliary colic Current Visit: Yes Status: Acute (4) Mesenteric ischemia Current Visit: Yes Status: Acute Plan to address problem: Patient is being followed by general surgery. Dr. Harmon recommended IV hydration and analgesics PRN. There is not sign of biliary obstruction at this time. WBC is normal. Continue zosyn until tomorrow. Advance diet. (5) Cocaine abuse affecting Current Visit: Yes Status: Acute (6) No care in current Current Visit: No Status: Acute (7) Grand multipara Current Visit: No Status: Acute (8) AMA (advanced maternal age) multigravida 35+ Current Visit: Yes Status: Acute Plan to address problem: No care. So, no genetics testing was done. (9) UTI (urinary tract infection) Current Visit: Yes Status: Acute (10) Gestational HTN Current Visit: Yes Status: Acute Plan to address problem: Toxemia labs were normal. Continue aldomet. Norvasc was added today. BPP was 6/8 today although NST is CAT1. Will repeat BPP tomorrow AM. Subjective - Subjective Date of service: 09/27/18 Principal diagnosis: SIUP at 37 weeks with drug abuse, abd pain. Interval history: Patient is a 38 year old female with EDC 10/18/18 at 37 weeks an 2 days weeks gestation based on sonogram dating in 06/2018 (date was unknown on admission). She was admitted for upper abdominal pain, vomiting, elevated BP. On admission, her toxicology was positive for cocaine, marijuana, alcohol. WBC was elevated. RUQ sono showed cholelothiasis but bilirubin and alkaline phosphatase were normal. She denied any contractions or fluid leakage. Sonogram showed the baby to be VTX, BPP 8/8. She has had no care. Toxemia labs were normal. Surgical consult was called. Dr. Harmon felt that the patient has mesenteric ischemia from the cocaine use. She was given IV zosyn. Her BP had normalized after hydralazine. She has been on aldomet 500 mg PO BID. Celestone for given for FLM. This AM, patient reports feeling better. Her BP has been labile in the 120/70- 140's/80. BPP today was 6/8 (-2 for breathing). Pt feels good movement but complains of being hungry. She was put on clear liquid diet. Objective - Vital Signs Vital Signs: Vital Signs - 12hr 09/27/18 09/27/18 09/27/18 08:25 08:30 08:31 Temperature 98.3 F Pulse Rate 80 72 75 Respiratory 18 Rate Blood Pressure 167/91 Blood Pressure 157/76 [Right] O2 Sat by Pulse 100 99 Oximetry 09/27/18 09/27/18 09/27/18 08:32 10:06 10:07 Temperature Pulse Rate 75 77 77 Respiratory Rate Blood Pressure 157/76 155/96 155/96 Blood Pressure [Right] O2 Sat by Pulse Oximetry 09/27/18 09/27/18 09/27/18 12:45 12:46 12:48 Temperature 98.5 F Pulse Rate 81 79 80 Respiratory Rate Blood Pressure 135/82 Blood Pressure 135/82 [Right] O2 Sat by Pulse 100 100 Oximetry 09/27/18 09/27/18 16:00 16:07 Temperature 98.2 F Pulse Rate 72 Respiratory Rate Blood Pressure 143/74 Blood Pressure [Right] O2 Sat by Pulse Oximetry - Exam Cardiovascular: Normal S1, Normal S2 Lungs: Clear to auscultation Vulva: both: normal FHR: category 1 Uterine Contraction Monitor Mode: External Cervical Dilatation: 0 (Nurse exam) Uterine Contraction Pattern: Absent Deep Tendon Reflex Grade: Normal +2 - Labs Labs: Abnormal Labs 09/23/18 09/23/18 09/24/18 18:58 20:00 07:12 WBC 11.8 H 15.0 H RBC 3.22 L 3.07 L Hgb Hct MCV 101 H 99 H MCH 35 H 35 H MCHC 35 H Lymph % (Auto) 5.9 L Coke % (Auto) Lymph # 0.9 L Coke # 0.9 H Seg Neutrophils % 87.2 H Seg Neutrophils # 13.1 H Potassium 3.5 L Carbon Dioxide 18 L BUN 4 L Creatinine 0.4 L Glucose POC Glucose Uric Acid AST 58 H Total Protein 6.2 L Albumin 3.4 L 09/24/18 09/25/18 09/25/18 07:12 05:49 05:49 WBC 15.5 H RBC 2.87 L Hgb 9.8 L Hct 28.9 L MCV 101 H MCH 34 H MCHC Lymph % (Auto) 5.9 L Coke % (Auto) Lymph # 0.9 L Coke # 0.9 H Seg Neutrophils % 88.3 H Seg Neutrophils # 13.6 H Potassium 3.5 L 3.2 L Carbon Dioxide 19 L 20 L BUN 4 L 2 L Creatinine 0.4 L 0.4 L Glucose 102 H POC Glucose Uric Acid AST Total Protein 5.8 L Albumin 3.4 L 09/25/18 09/26/18 09/26/18 12:55 06:04 10:56 WBC 13.3 H RBC 2.42 L Hgb 8.2 L Hct 24.4 L MCV 101 H MCH 34 H MCHC Lymph % (Auto) 6.2 L Coke % (Auto) 7.5 H Lymph # 0.8 L Coke # 1.0 H Seg Neutrophils % 86.1 H Seg Neutrophils # 11.5 H Potassium Carbon Dioxide BUN Creatinine Glucose POC Glucose 120 H Uric Acid 3.1 L AST Total Protein Albumin 09/26/18 09/27/18 09/27/18 13:48 16:35 18:37 WBC RBC 2.51 L Hgb 8.6 L Hct 25.5 L MCV 101 H MCH 34 H MCHC Lymph % (Auto) Coke % (Auto) 9.9 H Lymph # Coke # Seg Neutrophils % 72.0 H Seg Neutrophils # Potassium Carbon Dioxide BUN Creatinine Glucose POC Glucose 138 H 106 H Uric Acid AST Total Protein Albumin Laboratory Results - last 24 hr 09/27/18 09/27/18 09/27/18 10:09 16:35 18:37 WBC 7.0 RBC 2.51 L Hgb 8.6 L Hct 25.5 L MCV 101 H MCH 34 H MCHC 34 RDW 14.2 Plt Count 242 Lymph % (Auto) 17.1 Coke % (Auto) 9.9 H Eos % (Auto) 0.6 Baso % (Auto) 0.4 Lymph # 1.2 Coke # 0.7 Eos # 0.0 Baso # 0.0 Seg Neutrophils % 72.0 H Seg Neutrophils # 5.1 POC Glucose 89 106 H
[2018-09-27] MEDS: NORVASC PO SCH (19:50)
[2018-09-27] MEDS: FEOSOL PO SCH (22:07)
[2018-09-27] MEDS: PERCOCET 5/325 PO PRN (22:10)
[2018-09-27] MEDS: BENADRYL IV PRN (22:20)
[2018-09-28] MEDS: ZOSYN/NS 3.375GM/50ML 3.375 GM/50 ML BAG IV SCH ×4 (02:00→22:33)
[2018-09-28] MEDS: BENADRYL IV PRN (04:14)
[2018-09-28] MEDS: PERCOCET 5/325 PO PRN (04:14)
[2018-09-28] MEDS: APRESOLINE IV PRN (05:02)
[2018-09-28] MEDS: BUTT PASTE/LIDOCAINE TP SCH (06:16)
--- NOTE | 2018-09-28 10:31 | Progress Note ---
Assessment and Plan 37 weeks - Patient Problems (1) Cholelithiasis Current Visit: Yes Status: Acute (2) Biliary colic Current Visit: Yes Status: Acute (3) Mesenteric ischemia Current Visit: Yes Status: Acute Plan to address problem: Patient is being followed by general surgery. Dr. Harmon recommended IV hydrati on and analgesics PRN. There is not sign of biliary obstruction at this time. WBC is normal. Continue zosyn until tomorrow. Surgeon to follow up. Advance diet. [facility] consult called. (4) Cocaine abuse affecting Current Visit: Yes Status: Acute Plan to address problem: panel, HIV, HepB, RPR, T&S done. (5) No care in current Current Visit: No Status: Acute (6) Grand multipara Current Visit: No Status: Acute (7) AMA (advanced maternal age) multigravida 35+ Current Visit: Yes Status: Acute Plan to address problem: No care. So, no genetics testing was done. (8) UTI (urinary tract infection) Current Visit: Yes Status: Acute (9) Gestational HTN Current Visit: Yes Status: Acute Plan to address problem: Toxemia labs were normal. Continue aldomet and Norvasc. BPP was 6/8 yesterday although NST was CAT1. Will repeat BPP this AM. [facility] consult called. (10) 37 weeks gestation of Current Visit: No Status: Acute Subjective - Subjective Date of service: 09/28/18 Principal diagnosis: SIUP at 37 weeks with drug abuse, abd pain. Interval history: Patient is a 38 year old female with EDC 10/18/18 at 37 weeks an 2 days weeks gestation based on sonogram dating in 06/2018 (date was unknown on admission). She was admitted for upper abdominal pain, vomiting, elevated BP. On admission, her toxicology was positive for cocaine, marijuana, alcohol. WBC was elevated. RUQ sono showed cholelothiasis but bilirubin and alkaline phosphatase were normal. She denied any contractions or fluid leakage. Sonogram showed the baby to be VTX, BPP 8/8. She has had no care. Surgical consult was called. Dr. Harmon felt that the patient has mesenteric ischemia from the cocaine use. She was given IV zosyn. Patient was put on regular diet which she has been tolerated well. Her BP has been labile in the 120/70-140's/80. Toxemia labs were normal x 2 since her admission. She is on aldomet 500 mg PO BID and norvasc 5mg PO QD. Celestone for given for FLM because she was thought to be 34 weeks on admssion. This AM, patient said that she still had pain in her upper left abdomen mainly when she lies down on that side. She denies any nausea or vomiting. She is upset because she thinks she should be delivered. She has had not signs of labor since her admission. Yesterday, her cervix was a FT/long. Tracing is CAT1. Objective - Vital Signs Vital Signs: Vital Signs - 12hr 09/27/18 09/27/18 09/27/18 22:58 23:17 23:37 Pulse Rate 90 86 85 Blood Pressure 133/73 135/66 121/65 09/27/18 09/28/18 09/28/18 23:58 00:17 00:37 Pulse Rate 82 80 80 Blood Pressure 119/61 118/57 112/57 09/28/18 09/28/18 09/28/18 00:57 04:17 04:56 Pulse Rate 77 83 75 Blood Pressure 118/63 156/95 182/100 09/28/18 09/28/18 09/28/18 04:58 05:02 05:17 Pulse Rate 80 80 83 Blood Pressure 157/77 157/100 142/68 09/28/18 09/28/18 09/28/18 05:37 05:57 06:17 Pulse Rate 83 86 81 Blood Pressure 140/74 142/99 157/77 09/28/18 09/28/18 09/28/18 06:37 06:57 07:17 Pulse Rate 83 83 82 Blood Pressure 142/89 137/82 157/83 09/28/18 09/28/18 09/28/18 07:37 09:43 10:08 Pulse Rate 80 77 82 Blood Pressure 158/84 167/90 178/95 09/28/18 10:18 Pulse Rate 93 H Blood Pressure 161/94 - Exam Cardiovascular: Normal S1, Normal S2 Lungs: Clear to auscultation Vulva: both: normal FHR: category 1 Uterine Contraction Monitor Mode: External Uterine Contraction Pattern: Absent - Labs Labs: Abnormal Labs 05/04/19 05/04/19 05/05/19 18:58 20:00 07:12 WBC 11.8 H 15.0 H RBC 3.22 L 3.07 L Hgb Hct MCV 101 H 99 H MCH 35 H 35 H MCHC 35 H Lymph % (Auto) 5.9 L [place] % (Auto) Lymph # 0.9 L [place] # 0.9 H Seg Neutrophils % 87.2 H Seg Neutrophils # 13.1 H Potassium 3.5 L Carbon Dioxide 18 L BUN 4 L Creatinine 0.4 L Glucose POC Glucose Uric Acid AST 58 H Total Protein 6.2 L Albumin 3.4 L 09/24/18 09/25/18 09/25/18 07:12 05:49 05:49 WBC 15.5 H RBC 2.87 L Hgb 9.8 L Hct 28.9 L MCV 101 H MCH 34 H MCHC Lymph % (Auto) 5.9 L [place] % (Auto) Lymph # 0.9 L [place] # 0.9 H Seg Neutrophils % 88.3 H Seg Neutrophils # 13.6 H Potassium 3.5 L 3.2 L Carbon Dioxide 19 L 20 L BUN 4 L 2 L Creatinine 0.4 L 0.4 L Glucose 102 H POC Glucose Uric Acid AST Total Protein 5.8 L Albumin 3.4 L 09/25/18 09/26/18 09/26/18 12:55 06:04 10:56 WBC 13.3 H RBC 2.42 L Hgb 8.2 L Hct 24.4 L MCV 101 H MCH 34 H MCHC Lymph % (Auto) 6.2 L [place] % (Auto) 7.5 H Lymph # 0.8 L [place] # 1.0 H Seg Neutrophils % 86.1 H Seg Neutrophils # 11.5 H Potassium Carbon Dioxide BUN Creatinine Glucose POC Glucose 120 H Uric Acid 3.1 L AST Total Protein Albumin 09/26/18 09/27/18 09/27/18 13:48 16:35 18:37 WBC RBC 2.51 L Hgb 8.6 L Hct 25.5 L MCV 101 H MCH 34 H MCHC Lymph % (Auto) [place] % (Auto) 9.9 H Lymph # [place] # Seg Neutrophils % 72.0 H Seg Neutrophils # Potassium Carbon Dioxide BUN Creatinine Glucose POC Glucose 138 H 106 H Uric Acid AST Total Protein Albumin Laboratory Results - last 24 hr 09/27/18 09/27/18 09/28/18 16:35 18:37 01:11 WBC 7.0 RBC 2.51 L Hgb 8.6 L Hct 25.5 L MCV 101 H MCH 34 H MCHC 34 RDW 14.2 Plt Count 242 Lymph % (Auto) 17.1 [place] % (Auto) 9.9 H Eos % (Auto) 0.6 Baso % (Auto) 0.4 Lymph # 1.2 [place] # 0.7 Eos # 0.0 Baso # 0.0 Seg Neutrophils % 72.0 H Seg Neutrophils # 5.1 POC Glucose 106 H 92 - Results US- obstetric: report reviewed
[2018-09-28] MEDS: PRENATAL VITAMIN PO SCH (11:12)
[2018-09-28] MEDS: ALDOMET PO SCH ×2 (11:22→22:31)
[2018-09-28] MEDS: PEPCID IV SCH (11:22)
[2018-09-28] MEDS: NORVASC PO SCH (11:23)
[2018-09-28] MEDS: FEOSOL PO SCH ×2 (11:23→22:31)
[2018-09-28] MEDS: TYLENOL PO PRN ×3 (11:25→22:32)
--- NOTE | 2018-09-28 12:26 | Consultation ---
History of Present Illness Reason for consult: other (38yo at 37.4 wks per HIWOT of 10/15/18 from [facility] US 07/17/18 .Patient with NO care 09/23/18 Patient presented in acute abdominal pain writhing and twisting in bed screaming. Positive DOA : Cocaine , Opiate, and THC . She was cleared by surgery with diagnosis of Mesenteric ischem ia related to cocaine use. [facility] US with incidental cholelithiasis. [facility] US from 09/23/18 IUP 36.5 weeks EGA (AUA) 33.4 weeks EFW of 2423 grams 7% IUGR [facility] consult requested 09/28/18 . Patient reports continued LUQ pain which is stabbing in nature, " lungs are hurting" and headaches. Patient denies visual changes and N/V . BP this am 160-170/90's BP during consult 148/73 mm Hg under medical therapy 09/25/18 Patient 24 hr urine was 175 mg Patient reports AFM and come contractions ) Past History Past Surgical History: no surgical history - Obstetrical History : 10 Medications and Allergies Allergies Allergy/AdvReac Type Severity Reaction Status Date / Time No Known Allergies Allergy Verified 01/09/15 01:28 Active Meds: Active Medications Acetaminophen (Tylenol) 500 mg PO Q6H PRN PRN Reason: Pain, Mild (1-3) Last Admin: 09/28/18 11:25 Dose: 500 mg Documented by: Amlodipine Besylate (Norvasc) 5 mg PO QDAY [facility] Last Admin: 09/28/18 11:23 Dose: 5 mg Documented by: Diphenhydramine HCl (Benadryl) 25 mg IV Q6H PRN PRN Reason: Itching Last Admin: 09/28/18 04:14 Dose: 25 mg Documented by: Docusate Sodium (Colace) 100 mg PO Q12H PRN PRN Reason: Constipation Famotidine (Pepcid) 20 mg IV QDAY [facility] Last Admin: 09/28/18 11:22 Dose: 20 mg Documented by: Ferrous Sulfate (Feosol) 325 mg PO BID [facility] Last Admin: 09/28/18 11:23 Dose: 325 mg Documented by: Hydralazine HCl (Apresoline) 5 mg IV Q30MIN PRN PRN Reason: Hypertension Last Admin: 09/28/18 05:02 Dose: 5 mg Documented by: Dextrose/Lactated Ringer's (D5lr) 1,000 mls @ 100 mls/hr IV DIRECT CHADD Last Admin: 09/27/18 21:40 Dose: 100 mls/hr Documented by: Lactated Ringer's (Lactated Ringers) 1,000 mls @ 100 mls/hr IV DIRECT CHADD Last Admin: 09/27/18 15:57 Dose: 100 mls/hr Documented by: Piperacillin Sod/Tazobactam Sod (Zosyn/Ns 3.375gm/50ml) 3.375 gm in 50 mls @ 100 mls/hr IV Q6H CHADD; Protocol Last Admin: 09/28/18 09:40 Dose: 100 mls/hr Documented by: Lidocaine HCl (Butt Paste/Lidocaine) 1 applic TP TID [facility] Last Admin: 09/28/18 06:16 Dose: Not Given Documented by: Methyldopa (Aldomet) 500 mg PO Q12HR [facility] Last Admin: 09/28/18 11:22 Dose: 500 mg Documented by: Metoclopramide HCl (Reglan) 5 mg IV Q6H PRN PRN Reason: Dyspepsia Last Admin: 09/24/18 06:39 Dose: 5 mg Documented by: Multivitamins/Iron/Calcium ( Vitamin) 1 each PO QDAY [facility] Last Admin: 09/28/18 11:12 Dose: 1 each Documented by: Ondansetron HCl (Zofran) 4 mg IV Q8H PRN PRN Reason: Nausea And Vomiting Last Admin: 09/26/18 15:40 Dose: 4 mg Documented by: Oxycodone/Acetaminophen (Percocet 5/325) 1 tab PO Q6H PRN PRN Reason: Pain, Moderate (4-6) Last Admin: 09/28/18 04:14 Dose: 1 tab Documented by: Review of Systems Constitutional: other (headaches ), no fever Cardiovascular: high blood pressure (AM BP of 160-170/90's ), other (" lungs hu rt ") Respiratory: no shortness of breath Breasts: deferred Gastrointestinal: abdominal pain (LUQ pain since admission . Patient tolerating regular diet ), no nausea, no vomiting Genitourinary: contractions (occasional ), no vaginal bleeding, no vaginal discharge, no leakage of fluid Rectal Exam: deferred Integumentary: other (eczema both arms ) Neurological: headaches, no seizures Hematologic/Lymphatic: no easy bruising - Vital Signs Vital signs: Vital Signs Temp Pulse Resp BP 97.5 F L 96 H 18 144/88 09/23/18 14:37 09/23/18 14:37 09/23/18 14:37 09/23/18 14:37 Temp Pulse Resp BP Pulse Ox 98.2 F 81 18 148/73 100 09/27/18 16:00 09/28/18 12:07 09/27/18 08:31 09/28/18 12:07 09/27/18 12:46 - Physical Exam Breasts: Positive: deferred Cardiovascular: Regular rate Lungs: Positive: Normal air movement Abdomen: Positive: tenderness (LUQ), other (gravid ). Negative: guarding Uterus: Negative: tender Extremities: Positive: edema (trace ) Deep Tendon Reflex Grade: Normal +2 - Obstetrical FHR: category 1 Uterine Contraction Monitor Mode: External (after adjustment of TOCO contractions noted) Uterine Contraction Pattern: Irregular Results Result Diagrams: 09/28/18 12:51 09/28/18 12:51 Abnormal lab results 09/27/18 09/27/18 Range/Units 16:35 18:37 RBC 2.51 L (3.65-5.03) M/mm3 Hgb 8.6 L (10.1-14.3) gm/dl Hct 25.5 L (30.3-42.9) % MCV 101 H (79-97) fl MCH 34 H (28-32) pg [place] % (Auto) 9.9 H (0.0-7.3) % Seg Neutrophils % 72.0 H (40.0-70.0) % POC Glucose 106 H (70-105) All other labs normal. Ultrasound: report reviewed (SEE [facility] for full report from 09/27/18 BPP 10/28 ASA of 11 cm ) Assessment and Plan A) - IUP @ 37 .4 weeks per HIWOT 10/15/18 ( [facility] from 07/17/18) - No PNC - Grand multip - Positve DOA for Cocaine , THC, and Opiate - Admission on 09/23/18 with ABD pain - Evaluated and cleared by surgery ABD pain - mesenteric ischemia related to cocaine - [facility] US incidential finding of cholelithiasis - No bile acid study obtained - LUQ pain (continued) - 09/25/18 AST/ALT 37/40 - 09/28/18 S/P hydralazine AM BP of 160-170's/90's - Currently under Aldomet and Norvasc therapy - Reports headaches - 09/25/18 Protein 24 hr urine of 175 mg - IUGR with EFW @ 7 % ( [facility] US @ ) 09/25/18 - [facility] BPP of 10/28 - Anemia Hgb 8.6 mg Plan as per Dr Paige Gill - Dr Fernandez notified of findings and recommendation - Patient needs to be delivered today : IUP at 37.4 weeks with IUGR , cholelithiasis , concern for PreEclampsia - MgSO with indication - Strict I&O 's - Address anemia - Address elevated BPs as indcated - Notify anesthesia of + DOA and medical concern - Notify NICU - Placenta to pathology
[2018-09-28 13:13] LABS: Hematocrit 28.1 % (30.3-42.9); Hemoglobin 9.5 gm/dl (10.1-14.3); Mean Corpuscular HGB Conc 34 % (30-34); Mean Corpuscular Volume 102 fl (79-97); Platelet Count 272 K/mm3 (140-440); Red Blood Count 2.76 M/mm3 (3.65-5.03); Red Cell Distribution Width 14.1 % (13.2-15.2)
[2018-09-28 13:36] LABS: Alanine Aminotransferase 97 units/L (7-56); Albumin 2.9 g/dL (3.9-5); BUN/Creatinine Ratio 10; Blood Urea Nitrogen 4 mg/dL (7-17); Calcium 8.9 mg/dL (8.4-10.2); Hemolysis Index 1
[2018-09-28] MEDS ORDERED: MAGNESIUM SULFATE 4GM/100ML 4 GM/100 ML BAG IV ONE ×2 (14:33→16:09)
[2018-09-28] MEDS ORDERED: MAGNESIUM SULFATE 40GM/1000ML 40 GM/1,000 ML BAG IV ONE (14:33)
--- NOTE | 2018-09-28 14:34 | Event Note ---
Date: 09/28/18 Patient is a 38 year old female with EDC 10/15/18 at 37 weeks and 4 days weeks gestation based on sonogram dating in 06/2018 (date was unknown on admission). She was admitted on 09/23/18 for upper abdominal pain, vomiting, elevated BP. She could not answer any questions pertaining to her medical history and care. She was screaming and restless. On admission, her toxicology was positive for cocaine, marijuana, alcohol. She denied any history of narcotics abuse. WBC was elevated. RUQ sono showed cholelothiasis but bilirubin and alkaline phosphatase were normal. She denied any contractions or fluid leakage. Sonogram showed the baby to be VTX, BPP 8/8, EFW 5 lbs 3 oz. She has had no care. Surgical consult was called. Dr. Harmon felt that the patient has mesenteric ischemia from the cocaine use. She was given IV zosyn. Patient was NPO initially, then she was advanced to a regular diet which she has been tolerated well. In the meantime, her BP has been labile in the 120/70-140's/80 since admission. Toxemia labs were normal. She was put on aldomet 500 mg PO BID and norvasc 5mg PO QD. Patient denies any history of chronic HTN but her previous records from the ER were reviewed and it showed that she has uncontrolled CHTN and was prescribed norvasc by the ER doctor in 01/2018. She also was seen in the ER in 06/2018 for asthma exacerbation. Sonogram gave an EDC of 10/15/18. Celestone for given for FLM because the patient could not tell when her LMP was and current sonogram dated her to be 33+ weeks. [facility] consult was called. This AM, patient said that she still had pain in her upper left abdomen mainly when she lies down on that side. She denies any nausea or vomiting. She also complained of having headache but denies any visual changes. Her BP has become unstable in the 150-180's/80-90's since this AM. Toxemia were sent and showed elevated AST and ALT. 24-hr protein was 175. Cervix: 1 cm/70%/-2. Assessment: 38 year old at 37 weeks and 2 days gestation with superimposed pre- eclampsia. Unstable BP. IUGR. BPP 6/8 yesterday. Repeat BPP ordered today not done yet. [facility] consult done. Plan: Will start magnesium sulfate for seizure prophylaxis. Monitor Mg levels, urine output and DTRs. Continue aldomet and norvasc for BP control. Hydralazine IV for diastolic BP >100. Will induce labor today. Pitocin ordered. Continous monitoring.
[2018-09-28] MEDS ORDERED: PITOCin/NS 30 UNIT/500ML 30,000 MILLIUNITS/500 ML BAG IV ONE (16:25)
[2018-09-28] MEDS: LACTATED RINGERS 1,000 ML IV SCH (16:57)
[2018-09-28] MEDS ORDERED: LACTATED RINGERS 1,000 ML IV SCH (17:00)
--- NOTE | 2018-09-28 20:28 | Ultrasound Report ---
PROCEDURE: US OB BPP WO NON-STRESS TECHNIQUE: Sonographic evaluation for breathing, movement, tone, and amniotic flui d volume was performed. HISTORY: cocaine abuse, BPP / on 09/27 COMPARISONS: None . FINDINGS: FETUS Amniotic fluid volume Normal-score 2. At least one vertical pocket >2 cm or more in vertical axis . breathing: Normal-score 2 . movement: Normal-score 2 . tone: Normal-score 2 . Score: 8 of 8 . heart rate is 143 bpm IMPRESSION: Normal biophysical profile . This document is electronically signed by Jony Meyer MD., Sep 28 2018 08:26:29 PM ET
[2018-09-28] MEDS: PITOCin/NS 30 UNIT/500ML 30 UNITS/500 ML BAG IV SCH (20:32)
[2018-09-29] MEDS ORDERED: BENADRYL PO ONE (02:23)
--- NOTE | 2018-09-29 04:25 | Ultrasound Report ---
PROCEDURE: US OB VELOCIMETRY UMBILCAL ART TECHNIQUE: Doppler evaluation of the umbilical cord arterial structures. HISTORY: cocaine abuse, BPP 6/8 on 09/27 COMPARISONS: None FINDINGS: There is a single fetus. heart rate 1 52 bpm. The estimated ratio of the umbilical cord is a 2. 8 average. Resistive index averages 0.65. Findings are normal. IMPRESSION: Normal umbilical artery Doppler. This document is electronically signed by Sulma Gtz DO., Sep 29 2018 04:23:33 AM ET
[2018-09-29] MEDS: ZOSYN/NS 3.375GM/50ML 3.375 GM/50 ML BAG IV SCH (06:11)
--- NOTE | 2018-09-29 08:56 | Progress Note ---
Assessment and Plan - Patient Problems (1) Acute abdominal pain Current Visit: Yes Status: Acute (2) Cholelithiasis Current Visit: Yes Status: Acute (3) Mesenteric ischemia Current Visit: Yes Status: Acute (4) Cocaine abuse affecting Current Visit: Yes Status: Acute (5) Hypertension complicating Current Visit: No Status: Acute (6) Anemia affecting Current Visit: Yes Status: Acute (7) Preeclampsia Current Visit: Yes Status: Acute Plan to address problem: 1. Continue magnesium sulfate. 2. Continue Pitocin 3. Initial Epidural 4. Anticipate Subjective - Subjective Principal diagnosis: SIUP at 37 weeks with drug abuse, abd pain. Interval history: 38yo at 37 wks with mesenteric ischemia secondary to cocaine use is undergoing induction of labor secondary to preeclampsia. She also has IUGR. I entered room 09/28 and had a discussion with patient concerning the induction of labor. At that time she complained of a headache and stated her nurse was on her way to get Tylenol. I then re-entered her room 09/29 and she states she was annoyed. When I queried why she stated was annoyed she states because she was in pain all night. I asked why she didn't get an epidural. I then asked if I could check her cervix in order to manage her labor to which she agreed. I explained to her that we would continue increasing her Pitocin to augment her labor. (see event note) Objective - Vital Signs Vital Signs: Vital Signs - 12hr 09/28/18 09/28/18 09/28/18 21:14 21:44 22:14 Pulse Rate 85 89 85 Blood Pressure 117/63 130/76 141/87 09/28/18 09/28/18 09/28/18 22:30 22:31 22:46 Pulse Rate 88 88 87 Blood Pressure 154/98 154/98 163/92 09/28/18 09/28/18 09/28/18 22:50 23:14 23:44 Pulse Rate 90 86 83 Blood Pressure 153/85 132/73 128/63 09/29/18 09/29/18 09/29/18 00:14 00:44 01:14 Pulse Rate 83 82 86 Blood Pressure 132/65 124/65 135/87 09/29/18 09/29/18 09/29/18 01:44 02:14 02:45 Pulse Rate 81 83 85 Blood Pressure 175/93 124/72 161/80 09/29/18 09/29/18 09/29/18 03:14 04:07 04:14 Pulse Rate 83 86 83 Blood Pressure 138/88 143/77 129/66 09/29/18 09/29/18 09/29/18 04:44 05:14 05:44 Pulse Rate 90 88 86 Blood Pressure 131/69 128/69 131/75 09/29/18 09/29/18 09/29/18 06:14 06:44 08:05 Pulse Rate 83 86 84 Blood Pressure 119/65 136/78 141/84 09/29/18 09/29/18 08:14 08:44 Pulse Rate 84 88 Blood Pressure 142/91 143/99 - Exam FHR: category 2 Cervical Dilatation: 1 Cervical Effacement Percentage: 70 station: -2 - Labs Labs: Abnormal Labs 09/23/18 09/23/18 09/24/18 18:58 20:00 07:12 WBC 11.8 H 15.0 H RBC 3.22 L 3.07 L Hgb Hct MCV 101 H 99 H MCH 35 H 35 H MCHC 35 H Lymph % (Auto) 5.9 L [place] % (Auto) Lymph # 0.9 L [place] # 0.9 H Seg Neutrophils % 87.2 H Seg Neutrophils # 13.1 H Potassium 3.5 L Carbon Dioxide 18 L BUN 4 L Creatinine 0.4 L Glucose POC Glucose Uric Acid AST 58 H ALT Total Protein 6.2 L Albumin 3.4 L 09/24/18 09/25/18 09/25/18 07:12 05:49 05:49 WBC 15.5 H RBC 2.87 L Hgb 9.8 L Hct 28.9 L MCV 101 H MCH 34 H MCHC Lymph % (Auto) 5.9 L [place] % (Auto) Lymph # 0.9 L [place] # 0.9 H Seg Neutrophils % 88.3 H Seg Neutrophils # 13.6 H Potassium 3.5 L 3.2 L Carbon Dioxide 19 L 20 L BUN 4 L 2 L Creatinine 0.4 L 0.4 L Glucose 102 H POC Glucose Uric Acid AST ALT Total Protein 5.8 L Albumin 3.4 L 09/25/18 09/26/18 09/26/18 12:55 06:04 10:56 WBC 13.3 H RBC 2.42 L Hgb 8.2 L Hct 24.4 L MCV 101 H MCH 34 H MCHC Lymph % (Auto) 6.2 L [place] % (Auto) 7.5 H Lymph # 0.8 L [place] # 1.0 H Seg Neutrophils % 86.1 H Seg Neutrophils # 11.5 H Potassium Carbon Dioxide BUN Creatinine Glucose POC Glucose 120 H Uric Acid 3.1 L AST ALT Total Protein Albumin 09/26/18 09/27/18 09/27/18 13:48 16:35 18:37 WBC RBC 2.51 L Hgb 8.6 L Hct 25.5 L MCV 101 H MCH 34 H MCHC Lymph % (Auto) [place] % (Auto) 9.9 H Lymph # [place] # Seg Neutrophils % 72.0 H Seg Neutrophils # Potassium Carbon Dioxide BUN Creatinine Glucose POC Glucose 138 H 106 H Uric Acid AST ALT Total Protein Albumin 09/28/18 09/28/18 12:51 12:51 WBC RBC 2.76 L Hgb 9.5 L Hct 28.1 L MCV 102 H MCH 34 H MCHC Lymph % (Auto) [place] % (Auto) Lymph # [place] # Seg Neutrophils % Seg Neutrophils # Potassium 3.4 L Carbon Dioxide BUN 4 L Creatinine 0.4 L Glucose 102 H POC Glucose Uric Acid AST 58 H ALT 97 H Total Protein 5.8 L Albumin 2.9 L Laboratory Results - last 24 hr 09/28/18 09/28/18 12:51 12:51 WBC 8.1 RBC 2.76 L Hgb 9.5 L Hct 28.1 L MCV 102 H MCH 34 H MCHC 34 RDW 14.1 Plt Count 272 Sodium 139 Potassium 3.4 L Chloride 104.4 Carbon Dioxide 23 Anion Gap 15 BUN 4 L Creatinine 0.4 L Estimated GFR > 60 BUN/Creatinine Ratio 10 Glucose 102 H Calcium 8.9 Total Bilirubin 0.20 AST 58 H ALT 97 H Alkaline Phosphatase 116 Total Protein 5.8 L Albumin 2.9 L Albumin/Globulin Ratio 1.0
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
[2018-09-29] MEDS ORDERED: NARCAN 2 MG/2 ML IV PRN (09:30)
[2018-09-29] MEDS: PEPCID IV SCH (09:59)
[2018-09-29] MEDS: FEOSOL PO SCH (09:59)
[2018-09-29] MEDS: ALDOMET PO SCH ×2 (10:00→22:00)
[2018-09-29] MEDS ORDERED: AMPICILLIN/NS 2 GM/100 ML 2 GM/100 ML BAG IV ONE (10:00)
[2018-09-29] MEDS: NORVASC PO SCH (10:02)
[2018-09-29] MEDS: TYLENOL PO PRN ×2 (10:08→17:35)
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
--- NOTE | 2018-09-29 11:14 | Anesthesia Day of Surgery ---
Anesthesia Day of Surgery - Day of Surgery Patient Examined: Yes Patient H&P Reviewed: Yes Patient is NPO: Yes Beta Blockers: No Cardiac Clearance: No Pulmonary Clearance: No Ric's Test: N/A
[2018-09-29] MEDS: fentaNYL-BUPIV 2 MCG/ML-0.125% 200 MCG/100 ML BAG EPIDURAL SCH ×2 (12:11→19:34)
--- NOTE | 2018-09-29 15:09 | Event Note ---
DATE OF PROCEDURE: 09/29/18 PROCEDURE: Placement of Cook's Catheter for induction of labor SURGEON: Dr. Beatriz Fontenot SPORT PSYCHOLOGIST: DEYA Feldman RN INDICATIONS: No cervical change for > 12hrs during induction of labor despite pitocin PROCEDURE: Patient was verbally consented for procedure. Benefit for induction of labor was discussed and procedure. Patient agreed to procedure. The patient was placed in dorsal lithotomy position was bed stirrups. A Cook's catheter was placed intrauterine using sterile glove. The stylet was placed in the catheter in the correct port. 40ml of sterile saline was placed in the intrauterine port. 20 ml of sterile saline was placed in the vaginal port. The catheter was then partially adjusted leaving the intrauterine balloon within the uterus. Catheter's were then filled with the following volume of fluid. Intrauterine: 60ml Vaginal: 40ml Pitocin IV was then restarted at 2mu not to exceed 6mu. The patient tolerated the procedure well with no discomfort. Epidural is in place.
[2018-09-29] MEDS: AMPICILLIN/NS 1 GM/50 ML 1 GM/50 ML BAG IV SCH (15:31)
--- NOTE | 2018-09-29 17:21 | Event Note ---
Date: 09/29/18 Called to see patient secondary to patient that questions about her plan of care. Patient's chart reviewed. Agreed with indications for induction. tracing reviewed. No indication at present for operative intervention. Spoke with Mrs. Leslie and discussed the indications for induction and explained the process used for induction for labor. Patient had concerns about the length of time the process was taken but states that she does not want section. Discussed the steps of been taken to cause cervical dilatation needed for vaginal delivery and that this process can be lengthy. Answered all the patient's questions. Did discuss that still the possibility that section may be needed for or maternal reasons. Patient indicates she understands and desires proceed with the present plan of care.
[2018-09-30] MEDS: AMPICILLIN/NS 1 GM/50 ML 1 GM/50 ML BAG IV SCH ×4 (03:30→19:15)
[2018-09-30] MEDS: fentaNYL-BUPIV 2 MCG/ML-0.125% 200 MCG/100 ML BAG EPIDURAL SCH ×2 (03:31→14:03)
[2018-09-30] MEDS: LACTATED RINGERS 1,000 ML IV SCH ×2 (05:05→18:45)
[2018-09-30] MEDS: MAGNESIUM SULFATE 40GM/1000ML 40 GM/1,000 ML BAG IV SCH (05:35)
--- NOTE | 2018-09-30 07:47 | Progress Note ---
Assessment and Plan A: at 37.6 weeks gestation. Induction of labor with Pitocin. Drug screen positive for multiple drugs. Cholelithiasis. Anemia. Mesenteric ischemia. Preeclampsia. P: Consulted with Dr. Carrillo re: this patient. Restart Pitocin; plan AROM when contractions are regular again. Continuous EFM. Anticipate . Continue magnesium sulfate, Aldomet, and Norvasc. Subjective - Subjective Date of service: 09/30/18 Principal diagnosis: SIUP at 37.6 weeks with drug abuse, abd pain. Interval history: Labor is being induced with Pitocin. Pitocin was paused for several hours and is now being restarted. Patient has epidural. SVE /-3. Also receiving magnesium sulfate. Patient denies headache, visual disturbance, or swelling. BPs controlled. Patient reports: movement normal, contractions, no new complaints, no loss of fluid, no vaginal bleeding Objective - Vital Signs Vital Signs: Vital Signs - 12hr 09/29/18 09/29/18 09/29/18 19:53 20:08 20:24 Temperature Pulse Rate 91 H 88 84 Respiratory Rate Blood Pressure 126/69 134/77 135/85 O2 Sat by Pulse Oximetry 09/29/18 09/29/18 09/29/18 20:38 20:54 21:09 Temperature Pulse Rate 86 83 78 Respiratory Rate Blood Pressure 153/92 144/92 151/89 O2 Sat by Pulse Oximetry 09/29/18 09/29/18 09/29/18 21:23 21:38 21:53 Temperature Pulse Rate 80 79 80 Respiratory Rate Blood Pressure 135/79 133/80 137/81 O2 Sat by Pulse Oximetry 09/29/18 09/29/18 09/29/18 22:09 22:23 22:39 Temperature Pulse Rate 88 82 82 Respiratory Rate Blood Pressure 131/87 139/87 146/87 O2 Sat by Pulse Oximetry 09/29/18 09/29/18 09/29/18 22:53 23:08 23:24 Temperature Pulse Rate 81 82 87 Respiratory Rate Blood Pressure 139/89 140/88 161/94 O2 Sat by Pulse Oximetry 09/29/18 09/29/18 09/30/18 23:38 23:53 00:08 Temperature Pulse Rate 83 84 85 Respiratory Rate Blood Pressure 133/91 135/80 157/97 O2 Sat by Pulse Oximetry 09/30/18 09/30/18 09/30/18 00:14 00:15 00:29 Temperature 98.4 F Pulse Rate 84 83 78 Respiratory 20 Rate Blood Pressure 169/77 166/82 126/74 O2 Sat by Pulse Oximetry 09/30/18 09/30/18 09/30/18 00:45 01:01 01:15 Temperature Pulse Rate 81 85 76 Respiratory Rate Blood Pressure 136/78 136/82 122/65 O2 Sat by Pulse Oximetry 09/30/18 09/30/18 09/30/18 01:30 01:45 01:59 Temperature Pulse Rate 75 77 68 Respiratory Rate Blood Pressure 112/68 112/55 112/61 O2 Sat by Pulse Oximetry 09/30/18 09/30/18 09/30/18 02:16 02:51 03:20 Temperature Pulse Rate 88 71 77 Respiratory Rate Blood Pressure 116/58 114/60 115/67 O2 Sat by Pulse Oximetry 09/30/18 09/30/18 09/30/18 03:38 03:39 03:44 Temperature Pulse Rate 74 72 Respiratory Rate Blood Pressure O2 Sat by Pulse 73 L 99 100 Oximetry 09/30/18 09/30/18 09/30/18 03:50 03:55 04:00 Temperature Pulse Rate 71 76 75 Respiratory Rate Blood Pressure 130/77 O2 Sat by Pulse 100 100 99 Oximetry 09/30/18 09/30/18 09/30/18 04:05 04:10 04:11 Temperature Pulse Rate 79 72 80 Respiratory Rate Blood Pressure O2 Sat by Pulse 100 100 82 L Oximetry 09/30/18 09/30/18 09/30/18 04:15 04:20 04:25 Temperature Pulse Rate 75 71 76 Respiratory Rate Blood Pressure 119/75 O2 Sat by Pulse 100 99 99 Oximetry 09/30/18 09/30/18 09/30/18 04:30 04:35 04:40 Temperature Pulse Rate 73 67 72 Respiratory Rate Blood Pressure O2 Sat by Pulse 99 99 100 Oximetry 09/30/18 09/30/18 09/30/18 04:45 04:50 04:55 Temperature Pulse Rate 72 71 78 Respiratory Rate Blood Pressure 107/62 O2 Sat by Pulse 100 99 99 Oximetry 09/30/18 09/30/18 09/30/18 05:00 05:06 05:11 Temperature Pulse Rate 74 87 79 Respiratory Rate Blood Pressure O2 Sat by Pulse 99 100 100 Oximetry 09/30/18 09/30/18 09/30/18 05:16 05:20 05:21 Temperature Pulse Rate 77 83 74 Respiratory Rate Blood Pressure 118/66 O2 Sat by Pulse 100 99 Oximetry 09/30/18 09/30/18 09/30/18 05:26 05:31 05:36 Temperature Pulse Rate 75 78 81 Respiratory Rate Blood Pressure O2 Sat by Pulse 99 99 99 Oximetry 09/30/18 09/30/18 09/30/18 05:41 05:46 05:50 Temperature Pulse Rate 76 75 100 H Respiratory Rate Blood Pressure 128/76 O2 Sat by Pulse 99 99 Oximetry 09/30/18 09/30/18 09/30/18 05:51 05:56 06:01 Temperature Pulse Rate 79 78 86 Respiratory Rate Blood Pressure O2 Sat by Pulse 99 99 99 Oximetry 09/30/18 09/30/18 09/30/18 06:06 06:11 06:16 Temperature Pulse Rate 74 79 81 Respiratory Rate Blood Pressure O2 Sat by Pulse 99 97 98 Oximetry 09/30/18 09/30/18 09/30/18 06:20 06:21 06:26 Temperature Pulse Rate 75 75 72 Respiratory Rate Blood Pressure 128/70 O2 Sat by Pulse 99 100 Oximetry 09/30/18 09/30/18 09/30/18 06:31 06:36 06:41 Temperature Pulse Rate 84 78 79 Respiratory Rate Blood Pressure O2 Sat by Pulse 99 100 100 Oximetry 09/30/18 09/30/18 09/30/18 06:46 06:50 06:51 Temperature Pulse Rate 76 73 77 Respiratory Rate Blood Pressure 113/65 O2 Sat by Pulse 100 100 Oximetry 09/30/18 09/30/18 09/30/18 06:56 07:00 07:01 Temperature Pulse Rate 85 32 L 92 H Respiratory Rate Blood Pressure O2 Sat by Pulse 99 70 L 92 Oximetry 09/30/18 09/30/18 09/30/18 07:09 07:14 07:19 Temperature Pulse Rate 80 82 80 Respiratory Rate Blood Pressure O2 Sat by Pulse 98 97 96 Oximetry 09/30/18 09/30/18 09/30/18 07:20 07:24 07:28 Temperature Pulse Rate 80 84 99 H Respiratory Rate Blood Pressure 124/82 O2 Sat by Pulse 97 84 Oximetry 09/30/18 09/30/18 09/30/18 07:29 07:34 07:39 Temperature Pulse Rate 89 91 H 86 Respiratory Rate Blood Pressure O2 Sat by Pulse 85 99 98 Oximetry 09/30/18 07:44 Temperature Pulse Rate 80 Respiratory Rate Blood Pressure O2 Sat by Pulse 98 Oximetry - Exam Abdomen: Present: normal appearance, soft. Absent: distention, tenderness, guarding, rigidity Uterus: Present: normal, fundal height above umbilicus FHR: category 2 Uterine Contraction Monitor Mode: External Cervical Dilatation: 4 Cervical Effacement Percentage: 75 station: -3 Uterine Contraction Pattern: Irregular Uterine Contraction Intensity: Moderate Extremities: normal - Labs Labs: Abnormal Labs 09/23/18 09/23/18 09/24/18 18:58 20:00 07:12 WBC 11.8 H 15.0 H RBC 3.22 L 3.07 L Hgb Hct MCV 101 H 99 H MCH 35 H 35 H MCHC 35 H Lymph % (Auto) 5.9 L [place] % (Auto) Lymph # 0.9 L [place] # 0.9 H Seg Neutrophils % 87.2 H Seg Neutrophils # 13.1 H Potassium 3.5 L Carbon Dioxide 18 L BUN 4 L Creatinine 0.4 L Glucose POC Glucose Uric Acid Magnesium AST 58 H ALT Total Protein 6.2 L Albumin 3.4 L 09/24/18 09/25/18 09/25/18 07:12 05:49 05:49 WBC 15.5 H RBC 2.87 L Hgb 9.8 L Hct 28.9 L MCV 101 H MCH 34 H MCHC Lymph % (Auto) 5.9 L [place] % (Auto) Lymph # 0.9 L [place] # 0.9 H Seg Neutrophils % 88.3 H Seg Neutrophils # 13.6 H Potassium 3.5 L 3.2 L Carbon Dioxide 19 L 20 L BUN 4 L 2 L Creatinine 0.4 L 0.4 L Glucose 102 H POC Glucose Uric Acid Magnesium AST ALT Total Protein 5.8 L Albumin 3.4 L 09/25/18 09/26/18 09/26/18 12:55 06:04 10:56 WBC 13.3 H RBC 2.42 L Hgb 8.2 L Hct 24.4 L MCV 101 H MCH 34 H MCHC Lymph % (Auto) 6.2 L [place] % (Auto) 7.5 H Lymph # 0.8 L [place] # 1.0 H Seg Neutrophils % 86.1 H Seg Neutrophils # 11.5 H Potassium Carbon Dioxide BUN Creatinine Glucose POC Glucose 120 H Uric Acid 3.1 L Magnesium AST ALT Total Protein Albumin 09/26/18 09/27/18 09/27/18 13:48 16:35 18:37 WBC RBC 2.51 L Hgb 8.6 L Hct 25.5 L MCV 101 H MCH 34 H MCHC Lymph % (Auto) [place] % (Auto) 9.9 H Lymph # [place] # Seg Neutrophils % 72.0 H Seg Neutrophils # Potassium Carbon Dioxide BUN Creatinine Glucose POC Glucose 138 H 106 H Uric Acid Magnesium AST ALT Total Protein Albumin 09/28/18 09/28/18 09/29/18 12:51 12:51 15:43 WBC RBC 2.76 L Hgb 9.5 L Hct 28.1 L MCV 102 H MCH 34 H MCHC Lymph % (Auto) [place] % (Auto) Lymph # [place] # Seg Neutrophils % Seg Neutrophils # Potassium 3.4 L Carbon Dioxide BUN 4 L Creatinine 0.4 L Glucose 102 H POC Glucose Uric Acid Magnesium 5.90 H AST 58 H ALT 97 H Total Protein 5.8 L Albumin 2.9 L 09/29/18 21:56 WBC RBC Hgb Hct MCV MCH MCHC Lymph % (Auto) [place] % (Auto) Lymph # [place] # Seg Neutrophils % Seg Neutrophils # Potassium Carbon Dioxide BUN Creatinine Glucose POC Glucose Uric Acid Magnesium 5.80 H AST ALT Total Protein Albumin Laboratory Results - last 24 hr 09/29/18 09/29/18 15:43 21:56 Magnesium 5.90 H 5.80 H
[2018-09-30] MEDS: PEPCID IV SCH ×2 (09:24→09:25)
[2018-09-30] MEDS: ZOFRAN IV PRN (09:25)
[2018-09-30] MEDS: NORVASC PO SCH (09:52)
[2018-09-30] MEDS: ALDOMET PO SCH ×2 (09:52→22:29)
[2018-09-30] MEDS: PITOCin/NS 30 UNIT/500ML 30 UNITS/500 ML BAG IV SCH (09:56)
[2018-09-30 10:29] LABS: Amphetamine Screen,Urine PRESUMPTIVE NEGATIVE; Benzodiazepines Screen,Urine PRESUMPTIVE NEGATIVE; Cannabinoid Screen,Urine PRESUMPTIVE NEGATIVE; Cocaine Screen,Urine PRESUMPTIVE NEGATIVE; Methadone Screen,Urine PRESUMPTIVE NEGATIVE; Opiate Screen,Urine PRESUMPTIVE NEGATIVE
--- NOTE | 2018-09-30 13:29 | Event Note ---
Date: 09/30/18 AROM at 12:55 to augment labor. Small amount of clear fluid obtained. SVE /- 1.
[2018-09-30] MEDS: FEOSOL PO SCH ×2 (14:55→22:30)
[2018-09-30] MEDS: TYLENOL PO PRN (15:02)
--- NOTE | 2018-09-30 16:03 | Event Note ---
Date: 09/30/18 Patient reports she feels itching on right labia. She states she just started to feel this itching. She denies lesions, burning, stinging, or pain. Patient states she has a history of positive herpes serology test in the past but she states she has never had an outbreak. Consulted with Dr. Carrillo regarding this issue of new onset of vulvar itching. Discussed with patient in detail that there are a number of things that can cause vulvar itching, that I see no lesions after very careful exam with bright light (exam with bright light performed times 2 and no lesions or breaks in skin noted), that if a herpes outbreak was impending we may not know it for several days and certainly may not know it prior to delivery (patient is 6 cm dilated). Informed patient that Dr. Carrillo is willing to perform a section for her delivery if she agrees. Patient refused section; patient states she wants to continue to labor and have a vaginal . Patient states the itching has stopped now and that she does not think she is having a herpes outbreak. Discussed with patient in detail possible sequelae of herpes if it did happen to be active at the time of , including potential for serious sequelae for the baby (such as blindness, seizures, brain damage, or ). Patient states she understands these risks to her baby and she states she wants to proceed with a vaginal . Informed Dr. Carrillo of the above.
[2018-09-30] MEDS ORDERED: PITOCin/NS 20 UNIT/1000ML DRIP 20,000 MILLIUNITS/1,000 ML BAG IV ONE (16:58)
--- NOTE | 2018-09-30 18:55 | Event Note ---
Date: 09/30/18 SVE /-2. Cervix feels thicker than before. IUPC in place and contractions have been adequate. Consulted with Dr. Carrillo re: lack of cervical change. Will observe closely.
[2018-09-30] MEDS: BENADRYL IV PRN (19:32)
[2018-09-30] MEDS ORDERED: MILK OF MAGNESIA PO PRN (21:12)
[2018-09-30] MEDS ORDERED: TYLENOL PO PRN (21:12)
[2018-09-30] MEDS ORDERED: TUCKS PAD TP PRN (21:12)
[2018-09-30] MEDS ORDERED: LANSINOH TP PRN (21:12)
[2018-09-30] MEDS ORDERED: DULCOLAX PR PRN (21:12)
--- NOTE | 2018-09-30 21:29 | Procedure Note ---
OB Delivery Note - Delivery Date of Delivery: 09/30/18 Surgeon: ERUM TOVAR Estimated blood loss: other (150 cc) - Vaginal Delivery presentation: vertex Delivery position: OA Intrapartum events: no care, preeclampsia, shoulder dystocia Delivery induction: other (Cooks balloon) Delivery monitor: external FHT, external uterine, internal uterine Route of delivery: Delivery placenta: spontaneous Delivery cord: 3 umbilical vessels, other (shoulder cord, body cord) Delivery laceration: none Anesthesia: epidural Delivery comments: Spontaneous vaginal delivery at 20:27 of liveborn male weighing 4 lb. 13 oz. over intact perineum with apgars of 7/8. Epidural anesthesia. Shoulder/body cord. Mild shoulder dystocia resolved with Talia maneuver and suprapubic pressure. 3 vessel cord double clamped and cut and baby taken immediately to warmer/NICU team. Spontaneous cry and respirations. Baby bulb suctioned. Sponaneous delivery of intact placenta and membranes at 20:30 by bell mechanism. EBL 150 cc. Pitocin to IV fluids after delivery of placenta. Fundus firm and midline. No lacerations noted. Vaginal sweep negative. Sponge count correct. Mother and baby stable in birthing room. Placenta to pathology.
[2018-09-30] MEDS ORDERED: VALTREX PO SCH (22:00)
[2018-09-30] MEDS ORDERED: SODIUM CHLORIDE FLUSH SYRINGE 10 ML IV PRN (22:00)
[2018-09-30] MEDS: NORCO 5/325 PO PRN (22:56)
[2018-10-01] MEDS: LACTATED RINGERS 1,000 ML IV SCH ×4 (00:12→08:52)
[2018-10-01] MEDS: MAGNESIUM SULFATE 40GM/1000ML 40 GM/1,000 ML BAG IV SCH (00:34)
[2018-10-01] MEDS: IBUPROFEN PO PRN ×3 (05:40→17:00)
[2018-10-01] MEDS: NORCO 5/325 PO PRN ×3 (05:40→17:01)
[2018-10-01] MEDS: FEOSOL PO SCH (08:53)
[2018-10-01] MEDS: NORVASC PO SCH (08:54)
[2018-10-01] MEDS: ALDOMET PO SCH (08:54)
[2018-10-01] MEDS: PEPCID IV SCH (08:55)
[2018-10-01 09:31] LABS: Hematocrit 28.3 % (30.3-42.9); Hemoglobin 9.5 gm/dl (10.1-14.3)
[2018-10-01] MEDS: APRESOLINE IV PRN (10:44)
--- NOTE | 2018-10-01 11:33 | Progress Note ---
Assessment and Plan A: day 1 S/P spontaneous vaginal delivery. Anemia secondary to and blood loss. Preeclampsia. Elevated blood pressures (labile). P: Continue Aldomet and Norvasc with Hydralazine as needed. Continue Magnesium Sulfate. Advised patient she must rest and stay calm; advised her to lay down and dim the lights. Subjective - Subjective Date of service: 10/01/18 Principal diagnosis: day 1 S/P ; preeclampsia Interval history: day 1 S/P spontaneous vaginal delivery. Preeclampsia, on Aldomet and Norvasc. Just received Hydralazine for BP control. Patient reports headache today. No visual disturbance, chest pain, shortness of breath, leg pain, heavy vaginal bleeding, or any other problems. Patient is bottlefeeding. Patient reports: appetite normal, voiding normally, pain well controlled, flatus, ambulating normally, no dizzy ambulation, no nauseated : doing well Objective - Vital Signs Latest vital signs: Vital Signs Temp Pulse Resp BP BP Pulse Ox 10/01/18 10:54 76 172/79 10/01/18 10:37 20 10/01/18 10:36 20 10/01/18 10:27 76 158/80 10/01/18 10:25 77 164/82 10/01/18 10:24 78 184/104 10/01/18 08:46 71 137/67 10/01/18 08:45 98.8 F 71 137/67 10/01/18 07:30 86 130/82 10/01/18 06:30 78 138/74 10/01/18 05:31 78 178/95 10/01/18 05:29 77 142/95 10/01/18 02:30 75 143/94 10/01/18 01:31 86 160/88 10/01/18 01:26 77 98 10/01/18 01:21 78 98 10/01/18 01:16 76 98 10/01/18 01:11 74 98 10/01/18 01:06 75 98 10/01/18 01:01 74 98 10/01/18 00:56 75 99 10/01/18 00:51 90 99 10/01/18 00:46 72 99 10/01/18 00:41 76 99 10/01/18 00:36 73 100 10/01/18 00:31 80 100 10/01/18 00:30 72 146/86 10/01/18 00:26 81 100 10/01/18 00:21 83 100 10/01/18 00:16 85 99 10/01/18 00:11 89 100 10/01/18 00:06 91 H 99 10/01/18 00:01 88 99 09/30/18 23:56 86 100 09/30/18 23:51 83 100 09/30/18 23:46 84 99 09/30/18 23:41 93 H 100 09/30/18 23:36 87 99 09/30/18 23:35 113 H 65 L 09/30/18 23:30 95 H 121/86 09/30/18 23:26 86 100 09/30/18 23:21 89 100 09/30/18 23:16 96 H 98 09/30/18 23:15 96 H 88 09/30/18 23:01 85 100 09/30/18 22:57 87 168/85 09/30/18 22:56 88 99 09/30/18 22:43 98 H 99 09/30/18 22:38 89 99 09/30/18 22:33 91 H 100 09/30/18 22:31 92 H 168/80 09/30/18 22:28 81 100 09/30/18 22:23 79 100 09/30/18 22:18 80 100 09/30/18 22:16 85 154/83 09/30/18 22:15 88 155/92 09/30/18 22:13 81 100 09/30/18 22:08 80 99 09/30/18 22:03 91 H 100 09/30/18 22:00 98.2 F 09/30/18 21:59 75 152/88 09/30/18 21:58 84 98 09/30/18 21:53 80 98 09/30/18 21:48 84 98 09/30/18 21:46 61 L 09/30/18 21:45 98.2 F 93 H 20 147/86 09/30/18 21:43 82 100 09/30/18 21:38 77 100 09/30/18 21:37 75 173/82 09/30/18 21:36 75 165/84 09/30/18 21:33 77 100 09/30/18 21:28 85 100 09/30/18 21:23 100 H 94 09/30/18 21:22 98 H 94 09/30/18 21:19 89 138/93 09/30/18 21:09 85 97 09/30/18 21:04 79 96 09/30/18 21:02 68 149/71 09/30/18 21:00 80 84 09/30/18 20:59 77 171/101 97 09/30/18 20:54 76 98 09/30/18 20:49 84 98 09/30/18 20:41 74 71 L 09/30/18 20:38 80 137/85 09/30/18 20:36 83 97 09/30/18 20:31 76 151/80 100 09/30/18 20:30 98.2 F 20 09/30/18 19:52 67 143/79 09/30/18 19:23 77 122/73 09/30/18 19:02 98.1 F 18 09/30/18 18:51 77 132/102 09/30/18 18:00 16 09/30/18 17:51 70 122/73 09/30/18 17:00 18 09/30/18 16:51 74 115/67 09/30/18 15:51 81 145/89 09/30/18 15:00 98.3 F 16 09/30/18 14:51 75 115/66 09/30/18 14:30 15 09/30/18 14:20 77 118/59 09/30/18 13:50 71 100/51 09/30/18 13:30 18 09/30/18 13:20 75 121/76 09/30/18 12:50 74 115/68 09/30/18 12:20 76 120/66 09/30/18 11:50 74 113/67 Intake and Output 09/30/18 10/01/18 10/01/18 23:59 07:59 15:59 Intake Total 788.952 7633.917 201.667 Output Total 2300 800 Balance -1336.667 542.917 201.667 Intake: IV 520.076 0963.917 201.667 Lactated Ringers 1,000 ml 277.50 1185.000 201.667 @ 75 mls/hr IV DIRECT CHADD Rx#:[id number] MAGNESIUM SULFATE 40GM/ 633.333 157.917 1000ML 40 gm In 1,000 ml @ 2 GM/HR 50 mls/hr IV DIRECT CHADD Rx#:[id number] PITOCin/NS 30 UNIT/500ML 52.5 30 units In 500 ml @ 2 mls/hr IV TITR [facility] Rx#: [id number] Output: Urine 2300 800 Indwelling Catheter 1900 Void 400 800 Other: Total, Output Amount 500 500 # Voids Indwelling Catheter 1 Void 1 Estimated Blood Loss 150 - Exam Cardiovascular: Present: Regular rate, Normal S1, Normal S2, No murmurs Lungs: Present: Clear to auscultation Abdomen: Present: normal appearance, soft. Absent: distention, tenderness, guarding, rigidity Uterus: Present: normal, firm, fundal height below umbilicus. Absent: bogginess, tenderness Extremities: Present: normal. Absent: tenderness, edema - Labs Labs: Abnormal lab results 09/30/18 09/30/18 10/01/18 Range/Units 15:54 20:52 02:38 Hgb (10.1-14.3) gm/dl Hct (30.3-42.9) % Magnesium 5.90 H 5.20 H 4.10 H (1.7-2.3) mg/dL 10/01/18 10/01/18 Range/Units 09:10 09:15 Hgb 9.5 L (10.1-14.3) gm/dl Hct 28.3 L (30.3-42.9) % Magnesium 3.80 H (1.7-2.3) mg/dL
[2018-10-01] MEDS: BENADRYL IV PRN (13:29)
[2018-10-01] MEDS ORDERED: APRESOLINE IV ONE (21:59)
[2018-10-02] MEDS ORDERED: APRESOLINE ONE (01:01)
--- NOTE | 2018-10-02 01:16 | Consultation ---
History of Present Illness - Reason for Consult Consult date: 10/01/18 hypertensive urgency Requesting physician: CHELSEA SALTER - History of Present Illness Ms. Leslie is a 38-year-old -[place] female with history of asthma, hypertension, preeclampsia, cocaine abuse, marijuana abuse, EtOH abuse, and tobacco abuse, who is status post spontaneous vaginal delivery, day one. We are being consulted for hypertensive urgency/uncontrolled hyp ertension. Patient complains of mid occipital headache and lightheadedness. She states that her headache is constant and describes her pain as aching pressure. She rates her pain as moderate 5-6/10. The pain is aggravated with movement and is relieved by resting. 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 Furthermore, she states that she was diagnosed with hypertension during her after presenting to the ED with complaints of asthma exacerbation. At the time she was discharged and given a prescription, but doesn't recall the name of the medication. She admits to not fill on the prescription. Patient continued to use cocaine and tobacco products throughout her . Last time she got "high" was approximately a week and a half ago. Denies visual disturbances, gait abnormalities, paresthesia, and chest pain. Past History Past Medical History: hypertension, other (asthma) Past Surgical History: No surgical history Social history: smoking (tobacco), alcohol abuse, other (cocaine, THC) Family history: no significant family history Medications and Allergies Allergies Allergy/AdvReac Type Severity Reaction Status Date / Time No Known Allergies Allergy Verified 01/09/15 01:28 Home Medications Medication Instructions Recorded Confirmed Last Taken Type No Known Home Medications [No 09/30/18 09/30/18 Unknown History Reported Home Medications] Active Meds: Active Medications Acetaminophen (Tylenol) 500 mg PO Q6H PRN PRN Reason: Pain, Mild (1-3) Last Admin: 09/30/18 15:02 Dose: 500 mg Documented by: Acetaminophen/Hydrocodone Bitart ([place] 5/325) 1 each PO Q6H PRN PRN Reason: Pain, Moderate (4-6) Last Admin: 10/01/18 17:01 Dose: 1 each Documented by: Bisacodyl (Dulcolax) 10 mg MO BID PRN PRN Reason: Constipation Diphenhydramine HCl (Benadryl) 25 mg IV Q6H PRN PRN Reason: Itching Last Admin: 10/01/18 13:29 Dose: 25 mg Documented by: Docusate Sodium (Colace) 100 mg PO Q12H PRN PRN Reason: Constipation Last Admin: 10/01/18 08:56 Dose: 100 mg Documented by: Ephedrine Sulfate (Ephedrine Sulfate) 10 mg IV Q2M PRN PRN Reason: Hypotension Famotidine (Pepcid) 20 mg IV QDAY [facility] Last Admin: 10/01/18 08:55 Dose: 20 mg Documented by: Ferrous Sulfate (Feosol) 325 mg PO BID [facility] Last Admin: 10/01/18 08:53 Dose: 325 mg Documented by: Dextrose/Lactated Ringer's (D5lr) 1,000 mls @ 100 mls/hr IV DIRECT CHADD Last Admin: 09/27/18 21:40 Dose: 100 mls/hr Documented by: Lactated Ringer's (Lactated Ringers) 1,000 mls @ 75 mls/hr IV DIRECT CHADD Last Admin: 10/01/18 08:52 Dose: 100 mls/hr Documented by: Fentanyl/Bupivacaine/Sodium Chlor (Fentanyl-Bupiv 2 Mcg/Ml-0.125%) 200 mcg in 100 mls @ 12 mls/hr EPIDURAL TITR [facility]; Protocol Last Admin: 09/30/18 14:03 Dose: 12 mls/hr Documented by: Ibuprofen (Motrin) 800 mg PO Q8H PRN PRN Reason: Pain, Mild (1-3) Last Admin: 10/01/18 17:00 Dose: 800 mg Documented by: Lidocaine HCl (Butt Paste/Lidocaine) 1 applic TP TID [facility] Last Admin: 09/28/18 06:16 Dose: Not Given Documented by: Magnesium Hydroxide (Milk Of Magnesia) 30 ml PO HS PRN PRN Reason: Constipation Metoclopramide HCl (Reglan) 5 mg IV Q6H PRN PRN Reason: Dyspepsia Last Admin: 09/24/18 06:39 Dose: 5 mg Documented by: Multi-Ingredient Ointment (Lansinoh) 1 applic TP PRN PRN PRN Reason: Sore Nipples Naloxone HCl (Narcan 2 Mg/2 Ml) 0.2 mg IV Q5M PRN PRN Reason: Respiratory sedation Nifedipine (Procardia Xl) 60 mg PO QDAY [facility]ADD Ondansetron HCl (Zofran) 4 mg IV Q8H PRN PRN Reason: Nausea And Vomiting Last Admin: 09/30/18 09:25 Dose: 4 mg Documented by: Sodium Chloride (Sodium Chloride Flush Syringe 10 Ml) 10 ml IV PRN PRN PRN Reason: LINE FLUSH Witch Luisa/Glycerin (Tucks Pad) 1 each TP PRN PRN PRN Reason: Hemorrhoid/cleansing/soothing Review of Systems All systems: negative (reviewed and no additional remarkable complaint except as noted below) Neurological: headaches Psychiatric: anxiety Exam - Physical Exam Narrative exam: Physical exam General appearance: Present: No acute distress, anxious, looks stated age - EENT Eyes: Present: PERRL, EOM intact ENT: hearing intact, normal dentition - Neck Neck: Present: supple, normal ROM - Respiratory Respiratory effort: Non-labored Respiratory: Clear throughout - Cardiovascular Heart rate: 76 (bpm) Rhythm: regular Heart Sounds: Present: S1 & S2. Absent: rub, click - Extremities Extremities: no ischemia, pulses intact, - Peripheral Assessment Peripheral Pulses: within normal limits - Abdominal General gastrointestinal: soft, non-tender, normal bowel sounds - Integumentary Integumentary: Present: warm, dry - Musculoskeletal Musculoskeletal: Able to move extremities - Psychiatric Psychiatric: cooperative - Constitutional Vitals: Temp Pulse Resp BP Pulse Ox 98.8 F 78 20 183/79 98 10/01/18 15:55 10/02/18 01:04 10/01/18 17:36 10/02/18 01:04 10/01/18 01:26 Results - Labs CBC & Chem 7: 10/01/18 09:15 09/28/18 12:51 Labs: Abnormal lab results 10/01/18 10/01/18 10/01/18 Range/Units 02:38 09:10 09:15 Hgb 9.5 L (10.1-14.3) gm/dl Hct 28.3 L (30.3-42.9) % Magnesium 4.10 H 3.80 H (1.7-2.3) mg/dL 10/01/18 10/01/18 Range/Units 14:56 20:50 Hgb (10.1-14.3) gm/dl Hct (30.3-42.9) % Magnesium 4.00 H 4.10 H (1.7-2.3) mg/dL Short CBC 10/01/18 10/02/18 Range/Units 09:15 00:48 WBC 7.3 (4.5-11.0) K/mm3 Hgb 9.5 L 11.1 (10.1-14.3) gm/dl Hct 28.3 L 32.2 (30.3-42.9) % Plt Count 352 (140-440) K/mm3 Assessment and Plan Ms. Leslie is a 38-year-old -[place] female with history of asthma, hypertension, preeclampsia, cocaine abuse, marijuana abuse, EtOH abuse, and tobacco abuse, who is status post spontaneous vaginal delivery, day one. Patient complains of mid occipital headache and lightheadedness. Hypertensive urgency Hypertension-uncontrolled Anemia secondary to and blood loss Cholelithiasis Recommendations: Continue to monitor BP Continue nifedipine 60 mg daily Start hydralazine 10 mg every 4 hours for SBP >150; DBP>90 May consider thiazide diuretic if no improvement and okay with primary Start Ativan 1 mg every 4 hours when necessary for anxiety Continue supportive care Monitor hemoglobin
[2018-10-02 01:25] LABS: Basophils % (Auto) 0.4 % (0.0-1.8); Eosinophils # (Auto) 0.2 K/mm3 (0.0-0.4); Eosinophils % (Auto) 2.8 % (0.0-4.3); Hematocrit 32.2 % (30.3-42.9); Hemoglobin 11.1 gm/dl (10.1-14.3); Lymphocytes # (Auto) 2.2 K/mm3 (1.2-5.4); Lymphocytes % (Auto) 29.6 % (13.4-35.0); Mean Corpuscular HGB Conc 34 % (30-34); Mean Corpuscular Volume 100 fl (79-97); Monocytes # (Auto) 0.9 K/mm3 (0.0-0.8); Monocytes % (Auto) 12.3 % (0.0-7.3); Platelet Count 352 K/mm3 (140-440); Red Blood Count 3.21 M/mm3 (3.65-5.03); Red Cell Distribution Width 13.9 % (13.2-15.2)
[2018-10-02] MEDS ORDERED: APRESOLINE IV PRN (01:34)
[2018-10-02] MEDS ORDERED: ATIVAN IV PRN (01:34)
[2018-10-02 01:42] LABS: Alanine Aminotransferase 124 units/L (7-56); BUN/Creatinine Ratio 13; Blood Urea Nitrogen 5 mg/dL (7-17); Calcium 8.8 mg/dL (8.4-10.2); Hemolysis Index 14
[2018-10-02] MEDS: NORCO 5/325 PO PRN ×2 (02:13→15:22)
[2018-10-02] MEDS: IBUPROFEN PO PRN ×3 (03:09→22:56)
[2018-10-02] MEDS: BUTT PASTE/LIDOCAINE TP SCH ×3 (08:15→22:43)
[2018-10-02] MEDS: PROCARDIA XL PO SCH (09:38)
[2018-10-02] MEDS: PEPCID IV SCH (09:38)
[2018-10-02] MEDS: FEOSOL PO SCH ×2 (09:39→22:41)
--- NOTE | 2018-10-02 10:11 | Progress Note ---
Assessment and Plan - Patient Problems (1) Cholelithiasis Current Visit: Yes Status: Acute Qualifiers: Cholelithiasis location: gallbladder Cholecystitis presence: without cholecystitis (2) Biliary colic Current Visit: Yes Status: Acute (3) Mesenteric ischemia Current Visit: Yes Status: Acute Plan to address problem: Symptoms resolved. (4) Cocaine abuse affecting Current Visit: Yes Status: Acute Plan to address problem: Social consult was done. (5) No care in current Current Visit: No Status: Acute (6) Grand multipara Current Visit: No Status: Acute (7) AMA (advanced maternal age) multigravida 35+ Current Visit: Yes Status: Acute Plan to address problem: No care. So, no genetics testing was done. (8) UTI (urinary tract infection) Current Visit: Yes Status: Acute (9) 37 weeks gestation of Current Visit: No Status: Acute (10) (normal spontaneous vaginal delivery) Current Visit: Yes Status: Acute (11) Hypertension Current Visit: Yes Status: Acute Plan to address problem: BP has been unstable after magnesium sulfate. She is on procardia 60 mg and hydralazine. HCTZ was added this AM. Subjective - Subjective Date of service: 10/02/18 Principal diagnosis: day 1 S/P ; preeclampsia Interval history: Patient is a 38 year old female who is S/P 2 days ago. She was admitted with cocaine intoxication, left upper abdominal pain, vomiting and was diagnosed with mesenteric ischemia. She was put on IV zosyn. She has a history of CHTN and her BP was elevated. She was treated with magnesium sulfate for superimposed pre-eclampsia which was later discontinued. Her BP remains unstable. Medical consult was done and started her on procardia 60 mg QD and hydralazine. She denies any headache visual changes or RUQ pain. Objective - Vital Signs Latest vital signs: Vital Signs Temp Pulse Resp BP BP Pulse Ox 10/02/18 09:39 80 162/104 10/02/18 08:00 97.8 F 80 18 162/104 100 10/02/18 05:37 74 182/93 10/02/18 05:07 75 143/87 10/02/18 04:37 67 141/67 10/02/18 04:07 75 163/92 10/02/18 03:37 76 142/84 10/02/18 03:07 78 147/89 10/02/18 02:37 83 142/78 10/02/18 02:13 81 154/87 10/02/18 02:07 82 165/92 10/02/18 01:37 75 145/88 10/02/18 01:04 78 183/79 10/02/18 00:46 78 183/79 10/02/18 00:33 76 151/72 10/02/18 00:31 78 182/98 10/02/18 00:16 91 H 160/88 10/02/18 00:01 78 136/78 10/01/18 23:46 80 125/67 10/01/18 23:31 81 125/67 10/01/18 23:16 77 134/70 10/01/18 23:01 80 141/73 10/01/18 22:46 82 164/86 10/01/18 22:31 81 175/98 10/01/18 22:01 80 164/94 10/01/18 21:46 77 182/104 10/01/18 21:16 76 163/79 10/01/18 21:01 82 162/88 10/01/18 20:45 81 159/90 10/01/18 20:44 75 178/105 10/01/18 17:40 92 H 176/98 10/01/18 17:36 20 10/01/18 17:01 20 10/01/18 17:00 20 10/01/18 16:40 78 132/76 10/01/18 15:55 98.8 F 75 20 140/82 10/01/18 15:40 75 140/82 10/01/18 15:33 78 155/87 10/01/18 15:18 76 134/67 10/01/18 15:03 74 129/63 10/01/18 14:48 78 136/72 10/01/18 14:33 77 132/70 10/01/18 14:18 76 136/66 10/01/18 14:03 74 146/78 10/01/18 13:48 74 155/101 10/01/18 13:33 80 152/99 10/01/18 13:18 79 138/69 10/01/18 13:03 82 132/67 05 12:48 86 141/72 10/01/18 12:33 89 161/79 10/01/18 12:18 98.7 F 84 125/67 125/67 10/01/18 12:03 83 140/79 10/01/18 11:47 79 148/72 10/01/18 11:42 77 143/63 10/01/18 11:29 86 194/92 10/01/18 10:54 76 172/79 10/01/18 10:37 20 10/01/18 10:36 20 10/01/18 10:27 76 158/80 10/01/18 10:25 77 164/82 10/01/18 10:24 78 184/104 Intake and Output 10/01/18 10/02/18 10/02/18 23:59 07:59 15:59 Intake Total 60 Output Total 450 Balance -390 Intake: Oral 60 Output: Urine 450 Void 450 Other: Total, Intake Amount 60 Total, Output Amount 450 - Exam Cardiovascular: Present: Normal S1, Normal S2 Lungs: Present: Clear to auscultation Vulva: both: normal Deep Tendon Reflex Grade: Normal +2 - Labs Labs: Abnormal lab results 10/01/18 10/01/18 10/02/18 Range/Units 14:56 20:50 00:48 RBC 3.21 L (3.65-5.03) M/mm3 MCV 100 H (79-97) fl MCH 35 H (28-32) pg [place] % (Auto) 12.3 H (0.0-7.3) % [place] # 0.9 H (0.0-0.8) K/mm3 BUN (7-17) mg/dL Creatinine (0.7-1.2) mg/dL Magnesium 4.00 H 4.10 H (1.7-2.3) mg/dL AST (5-40) units/L ALT (7-56) units/L Alkaline Phosphatase (35-129) units/L Lactate Dehydrogenase (91-180) units/L Albumin (3.9-5) g/dL 10/02/18 10/02/18 Range/Units 00:48 03:14 RBC (3.65-5.03) M/mm3 MCV (79-97) fl MCH (28-32) pg [place] % (Auto) (0.0-7.3) % [place] # (0.0-0.8) K/mm3 BUN 5 L (7-17) mg/dL Creatinine 0.4 L (0.7-1.2) mg/dL Magnesium 2.70 H (1.7-2.3) mg/dL AST 41 H (5-40) units/L ALT 124 H (7-56) units/L Alkaline Phosphatase 149 H (35-129) units/L Lactate Dehydrogenase 185 H (91-180) units/L Albumin 3.0 L (3.9-5) g/dL
[2018-10-02] MEDS: HCTZ PO SCH (11:47)
[2018-10-02] MEDS: APRESOLINE PO SCH ×2 (15:23→22:41)
--- NOTE | 2018-10-02 20:05 | Progress Note ---
Assessment and Plan Assessment and plan: --Hypertension; moderate control Continue current antihypertensives, when necessary hydralazine --Anemia; closely monitor H&H and transfuse as needed -- state; management per RETAIL PHARMACY MANAGER --DVT prophylaxis; SCDs --Obesity; BMI 33.5 Advised weight reduction and medically stable Monitor the patient closely and adjust management as needed Patient is medically stable for discharge Patient needs to see primary care physician for her medical needs Plan of care reviewed with the patient, family member at the bedside, and her nurse History Interval history: Patient seen and examined medical records reviewed No new events reported by nursing Blood pressures and moderate control On antihypertensives Patient has no new complaints Vital signs noted Hospitalist Physical - Constitutional Vitals: Temp Pulse Resp BP Pulse Ox 98.2 F 84 16 143/86 99 10/02/18 16:24 10/02/18 16:24 10/02/18 16:24 10/02/18 16:24 10/02/18 16:24 General appearance: Present: no acute distress, well-nourished, obese - EENT Eyes: Present: PERRL, EOM intact - Neck Neck: Present: supple, normal ROM - Respiratory Respiratory effort: normal Respiratory: bilateral: diminished, negative: rales, rhonchi, wheezing - Cardiovascular Rhythm: regular Heart Sounds: Present: S1 & S2 - Extremities Extremities: no ischemia, No edema - Abdominal General gastrointestinal: soft, non-tender, non-distended, normal bowel sounds - Integumentary Integumentary: Present: clear, warm - Psychiatric Psychiatric: appropriate mood/affect, cooperative - Neurologic Neurologic: CNII-XII intact, moves all extremities Results - Labs CBC & Chem 7: 10/02/18 00:48 10/02/18 00:48 Labs: Laboratory Last Values WBC 7.3 K/mm3 (4.5-11.0) 10/02/18 00:48 RBC 3.21 M/mm3 (3.65-5.03) L 10/02/18 00:48 Hgb 11.1 gm/dl (10.1-14.3) 10/02/18 00:48 Hct 32.2 % (30.3-42.9) 10/02/18 00:48 MCV 100 fl (79-97) H 10/02/18 00:48 MCH 35 pg (28-32) H 10/02/18 00:48 MCHC 34 % (30-34) 10/02/18 00:48 RDW 13.9 % (13.2-15.2) 10/02/18 00:48 Plt Count 352 K/mm3 (140-440) 05 00:48 Lymph % (Auto) 29.6 % (13.4-35.0) 10/02/18 00:48 [place] % (Auto) 12.3 % (0.0-7.3) H 10/02/18 00:48 Eos % (Auto) 2.8 % (0.0-4.3) 10/02/18 00:48 Baso % (Auto) 0.4 % (0.0-1.8) 10/02/18 00:48 Lymph # 2.2 K/mm3 (1.2-5.4) 10/02/18 00:48 [place] # 0.9 K/mm3 (0.0-0.8) H 10/02/18 00:48 Eos # 0.2 K/mm3 (0.0-0.4) 10/02/18 00:48 Baso # 0.0 K/mm3 (0.0-0.1) 10/02/18 00:48 Seg Neutrophils % 54.9 % (40.0-70.0) 10/02/18 00:48 Seg Neutrophils # 4.0 K/mm3 (1.8-7.7) 10/02/18 00:48 Sodium 138 mmol/L (137-145) 10/02/18 00:48 Potassium 4.2 mmol/L (3.6-5.0) D 10/02/18 00:48 Chloride 100.4 mmol/L (98-107) 10/02/18 00:48 Carbon Dioxide 26 mmol/L (22-30) 10/02/18 00:48 16 mmol/L 10/02/18 00:48 BUN 5 mg/dL (7-17) L 10/02/18 00:48 0.4 mg/dL (0.7-1.2) L 10/02/18 00:48 Estimated GFR > 60 ml/min 10/02/18 00:48 13 % 10/02/18 00:48 Glucose 91 mg/dL (65-100) 10/02/18 00:48 POC Glucose 92 (70-105) 09/28/18 01:11 Lactic Acid 1.30 mmol/L (0.7-2.0) 09/24/18 09:40 3.5 mg/dL (3.5-7.6) 10/02/18 00:48 Calcium 8.8 mg/dL (8.4-10.2) 10/02/18 00:48 Magnesium 2.70 mg/dL (1.7-2.3) H 10/02/18 03:14 < 0.20 mg/dL (0.1-1.2) 10/02/18 00:48 AST 41 units/L (5-40) H 10/02/18 00:48 ALT 124 units/L (7-56) H 10/02/18 00:48 149 units/L (35-129) H 10/02/18 00:48 185 units/L (91-180) H 10/02/18 00:48 6.3 g/dL (6.3-8.2) 10/02/18 00:48 3.0 g/dL (3.9-5) L 10/02/18 00:48 0.9 % 10/02/18 00:48 Amylase 38 units/L (27-131) 09/23/18 18:58 22 units/L (13-60) 09/23/18 18:58 [place] (Yellow) 09/24/18 00:06 Slightly-cloudy (Clear) 09/24/18 00:06 5.0 (5.0-7.0) 09/24/18 00:06 Ur Specific [place] 1.026 (1.003-1.030) 09/24/18 00:06 30 mg/dl mg/dL (Negative) 09/24/18 00:06 Neg mg/dL (Negative) 09/24/18 00:06 80 mg/dL (Negative) 09/24/18 00:06 Sm (Negative) 09/24/18 00:06 Neg (Negative) 09/24/18 00:06 Neg (Negative) 09/24/18 00:06 2.0 mg/dL (<2.0) 09/24/18 00:06 Ur Leukocyte Esterase Neg (Negative) 09/24/18 00:06 4.0 /HPF (0.0-6.0) 09/24/18 00:06 7.0 /HPF (0.0-6.0) 09/24/18 00:06 U Epithel Cells (Auto) 6.0 /HPF (0-13.0) 09/24/18 00:06 Ur Transition Epith Cell 1 /HPF 09/24/18 00:06 3+ /HPF 09/24/18 00:06 2500 ml 09/25/18 Unknown Ur Total Protein 24 Hr 175.00 mg/dL (2-200) 09/25/18 Unknown 7 mg/dL (5-11.8) 09/25/18 Unknown Presumptive negative 09/30/18 10:06 Presumptive negative 09/30/18 10:06 Ur Barbiturates Screen Presumptive negative 09/30/18 10:06 Ur Phencyclidine Scrn Presumptive negative 09/30/18 10:06 Ur Amphetamines Screen Presumptive negative 09/30/18 10:06 U Benzodiazepines Scrn Presumptive negative 09/30/18 10:06 Presumptive negative 09/30/18 10:06 U Marijuana (THC) Screen Presumptive negative 09/30/18 10:06 Disclamer 09/30/18 10:06 RPR Nonreactive (Nonreactive) 09/25/18 12:55 Hep Bs Antigen Non-reactive (Negative) 09/25/18 12:55 HIV 1&2 Antibody Rapid Non react (Non React) 09/25/18 12:55 Non react (Non React) 09/25/18 12:55 Blood Type AB POSITIVE 09/25/18 12:55 Antibody Screen Negative 09/25/18 12:55 Active Medications - Current Medications Current Medications: Generic Name Dose Route Start Last Admin Trade Name Freq PRN Reason Stop Dose Admin Acetaminophen 500 mg 09/23/18 19:29 09/30/18 15:02 Tylenol PO 500 mg Q6H PRN Administration Pain, Mild (1-3) Acetaminophen/Hydrocodone Bitart 1 each 09/30/18 22:33 10/02/18 15:22 [place] 5/325 PO 1 each Q6H PRN Administration Pain, Moderate (4-6) Bisacodyl 10 mg 09/30/18 21:12 Dulcolax [place] BID PRN Constipation Diphenhydramine HCl 25 mg 09/23/18 18:12 10/01/18 13:29 Benadryl IV 25 mg Q6H PRN Administration Itching Docusate Sodium 100 mg 09/23/18 18:04 10/01/18 08:56 Colace PO 100 mg Q12H PRN Administration Constipation Ephedrine Sulfate 10 mg 09/29/18 09:30 Ephedrine Sulfate IV Q2M PRN Hypotension Famotidine 20 mg 09/24/18 10:00 10/02/18 09:38 Pepcid IV 20 mg QDAY CHADD Administration Ferrous Sulfate 325 mg 09/27/18 22:00 10/02/18 09:39 Feosol PO 325 mg BID CHADD Administration Hydralazine HCl 10 mg 10/02/18 01:34 10/02/18 09:39 Apresoline IV 10 mg Q4HR PRN Administration Blood Pressure Hydralazine HCl 25 mg 10/02/18 14:00 10/02/18 15:23 Apresoline PO 25 mg Q8HR CHADD Administration Hydrochlorothiazide 50 mg 10/02/18 11:00 10/02/18 11:47 Hctz PO 50 mg QDAY CHADD Administration Dextrose/Lactated Ringer's 1,000 mls @ 100 mls/hr 09/23/18 19:00 09/27/18 21:40 D5lr IV 100 mls/hr DIRECT CHADD Administration Lactated Ringer's 1,000 mls @ 75 mls/hr 09/28/18 17:49 10/01/18 08:52 Lactated Ringers IV 100 mls/hr DIRECT CHADD Administration Fentanyl/Bupivacaine/Sodium Chlor 200 mcg in 100 mls @ 12 mls/hr 09/29/18 09:30 09/30/18 14:03 Fentanyl-Bupiv 2 Mcg/Ml-0.125% EPIDURAL 12 mls/hr TITR CHADD Administration Protocol Ibuprofen 800 mg 10/01/18 05:29 10/02/18 09:47 Motrin PO 800 mg Q8H PRN Administration Pain, Mild (1-3) Lidocaine HCl 1 applic 09/27/18 14:00 10/02/18 15:15 Butt Paste/Lidocaine TP Not Given TID CHADD Lorazepam 1 mg 10/02/18 01:34 Ativan IV Q4H PRN Anxiety Magnesium Hydroxide 30 ml 09/30/18 21:12 Milk Of Magnesia PO HS PRN Constipation Metoclopramide HCl 5 mg 09/23/18 18:12 09/24/18 06:39 Reglan IV 5 mg Q6H PRN Administration Dyspepsia Multi-Ingredient Ointment 1 applic 09/30/18 21:12 Lansinoh TP PRN PRN Sore Nipples Naloxone HCl 0.2 mg 09/29/18 09:30 Narcan 2 Mg/2 Ml IV Q5M PRN Respiratory sedation Nifedipine 60 mg 10/02/18 09:00 10/02/18 09:38 Procardia Xl PO 60 mg QDAY CHADD Administration Ondansetron HCl 4 mg 09/23/18 18:24 09/30/18 09:25 Zofran IV 4 mg Q8H PRN Administration Nausea And Vomiting Sodium Chloride 10 ml 09/30/18 22:00 Sodium Chloride Flush Syringe 10 Ml IV PRN PRN LINE FLUSH Triamcinolone Acetonide 1 applic 10/02/18 22:00 Kenalog TP BID CHADD Witch Luisa/Glycerin 1 each 09/30/18 21:12 Tucks Pad TP PRN PRN Hemorrhoid/cleansing/soothing
[2018-10-02] MEDS ORDERED: KENALOG TP SCH (22:00)
[2018-10-02 23:54] LABS: Bilirubin,Urine NEG (Negative); Blood,Urine MOD (Negative); Color,Urine Straw (Yellow); Mucus,Urine FEW /HPF; Protein,Urine <15 mg/dL mg/dL (Negative); Urobilinogen,Urine < 2.0 mg/dL (<2.0)
[2018-10-03] MEDS: BENADRYL IV PRN (00:46)
[2018-10-03] MEDS: NORCO 5/325 PO PRN (03:14)
[2018-10-03] MEDS: BUTT PASTE/LIDOCAINE TP SCH (08:16)
[2018-10-03] MEDS: APRESOLINE PO SCH (08:37)
--- NOTE | 2018-10-03 09:33 | Progress Note ---
Assessment and Plan - Patient Problems (1) Acute abdominal pain Status: Acute (2) Cholelithiasis Status: Acute Qualifiers: Cholelithiasis location: gallbladder Cholecystitis presence: without cholecystitis (3) Mesenteric ischemia Status: Acute (4) Cocaine abuse affecting Status: Acute Plan to address problem: patient services manager consult ordered. NICU aware. (5) Hypertension complicating Status: Acute Plan to address problem: Labile BPs. Per nursing staff elevations are noted when patient is on the phone and conversing with family. Start Methyldopa. (6) Anemia affecting Status: Acute Plan to address problem: When bowel status returns to normal, will start iron. (7) Preeclampsia Status: Acute Plan to address problem: 1. Continue magnesium sulfate. 2. Continue Pitocin 3. Initial Epidural 4. Anticipate Subjective - Subjective Principal diagnosis: day 1 S/P ; preeclampsia Interval history: 38yo at 37 wks with mesenteric ischemia secondary to cocaine use is undergoing induction of labor secondary to preeclampsia. She also has IUGR. I entered room 09/28 and had a discussion with patient concerning the induction of labor. At that time she complained of a headache and stated her nurse was on her way to get Tylenol. I then re-entered her room 09/29 and she states she was annoyed. When I queried why she stated was annoyed she states because she was in pain all night. I asked why she didn't get an epidural. I then asked if I could check her cervix in order to manage her labor to which she agreed. I explained to her that we would continue increasing her Pitocin to augment her labor. (see event note) Objective - Vital Signs Latest vital signs: Vital Signs Temp Pulse Resp BP BP BP Pulse Ox 10/03/18 08:37 149/89 10/03/18 07:56 98.2 F 82 20 141/89 98 10/02/18 20:20 89 137/97 150/95 10/02/18 16:24 98.2 F 84 16 143/86 99 10/02/18 15:23 81 149/86 10/02/18 11:48 98.4 F 87 18 141/84 100 10/02/18 09:39 80 162/104 Intake and Output 10/02/18 10/03/18 10/03/18 23:59 07:59 15:59 Intake Total 550 Balance 550 Intake: Oral 550 Other: Total, Intake Amount 550 # Voids Void 1
[2018-10-03] MEDS: PROCARDIA XL PO SCH (10:19)
[2018-10-03] MEDS: FEOSOL PO SCH (10:19)
[2018-10-03] MEDS: HCTZ PO SCH (10:21)
--- NOTE | 2018-10-03 16:11 | Event Note ---
Clarification: On admission, the urine drug screen was ordered prior to administering morphine, however the patient had multiple episodes of incontinence in her bed which delayed it's collection. Once the UDS was actually collected, the patient had received morphine for symptompatic relief.
--- NOTE | 2018-10-03 16:14 | Discharge Summary ---
Providers - Providers Date of Admission: 09/23/18 20:23 Attending physician: CHELSEA SLATER 09/23/18 18:04 Consult to Physician [CONS] Stat Comment: Consulting Provider: BATSHEVA PERSAUD Physician Instructions: Reason For Exam: 34 wks, symptomatic cholelithiasis 09/24/18 17:42 Consult to Case Management [CONS] Urgent Services Needed at Discharge: Counter Professional Notified:: No Additional Physician Instructions: 34 weeks female with 9 children found to be positive for cocaine and marijuna on admission. 10/01/18 23:12 Consult to Physician [CONS] Stat Comment: Consulting Provider: SINDY CASTANEDA Physician Instructions: Reason For Exam: Uncontrolled hypertension Primary care physician: CHELSEA SALTER Hospitalization Reason for admission: other (intense abdominal pain, hypertensive urgency) Delivery: Procedure details: OB Delivery Note - Delivery Date of Delivery: 09/30/18 Surgeon: ERUM TOVAR Estimated blood loss: other (150 cc) - Vaginal Delivery presentation: vertex Delivery position: OA Intrapartum events: no care, preeclampsia, shoulder dystocia Delivery induction: other (Cooks balloon) Delivery monitor: external FHT, external uterine, internal uterine Route of delivery: Delivery placenta: spontaneous Delivery cord: 3 umbilical vessels, other (shoulder cord, body cord) Delivery laceration: none Anesthesia: epidural Delivery comments: Spontaneous vaginal delivery at 20:27 of liveborn male weighing 4 lb. 13 oz. over intact perineum with apgars of 7/8. Epidural anesthesia. Shoulder/body cord. Mild shoulder dystocia resolved with Talia maneuver and suprapubic pressure. 3 vessel cord double clamped and cut and baby taken immediately to warmer/NICU team. Spontaneous cry and respirations. Baby bulb suctioned. Sponaneous delivery of intact placenta and membranes at 20:30 by bell mechanism. EBL 150 cc. Pitocin to IV fluids after delivery of placenta. Fundus firm and midline. No lacerations noted. Vaginal sweep negative. Sponge count correct. Mother and baby stable in birthing room. Placenta to pathology. Hospital course: Mesenteric ischemia - secondary to cocaine use Incidental gallstones Preeclampsia severe features - s/p magnesium sulfate for seizure prophylaxis Hypertensive Urgency - Received multiple doses of hydralazine IV, discharged home with Nifedipine 60mg XL Cocaine abuse - NICU/DFCS involved Premterm delivery - due to preeclamspsia severe features The patient had no care and has been told she can present [facility] for blood pressure check wihtin 7-10 days. She states she doesn't care about herself right now only her baby because he is being taken from her. Stressed the importance of close follow-up outpatient for blood pressure check. Condition at discharge: Stable Disposition: DC-01 TO HOME OR SELFCARE - Discharge Diagnoses (1) Acute abdominal pain Status: Acute (2) Cholelithiasis Status: Acute Qualifiers: Cholelithiasis location: gallbladder Cholecystitis presence: without cholecystitis (3) Mesenteric ischemia Status: Acute (4) Cocaine abuse affecting Status: Acute (5) Hypertension complicating Status: Acute (6) Anemia affecting Status: Acute (7) Preeclampsia Status: Acute Plan - Discharge Medications Prescriptions: NIFEdipine XL [Procardia Xl] 60 mg PO QDAY #30 tablet - Provider Discharge Summary Activity: no sex for 6 weeks Additional instructions: [] Smoking cessation referral if applicable(refer to patient education folder for contact #) [] Refer to [facility] Booklet Call your doctor immediately for: * Fever > 100.5 * Heavy vaginal bleeding ( >1 pad per hour) * Severe persistent headache * Shortness of breath * Reddened, hot, painful area to leg or breast * Drainage or odor from incision. * Keep incision clean and dry at all times and follow doctor's instructions regarding bathing/showering The patient had no care and has been told [facility] for blood pressure check wihtin 7-10 days. She states she doesn't care about herself right now only her baby because he is being taken from her. Stressed the importance of close follow-up outpatient for blood pressure check - Follow up plan Follow up: CHELSEA SALTER MD [Primary Care Provider] - 7 Days
[2018-10-03 20:13] VITALS: BP 125/90
== END 2018-10-03 21:00 | disposition home or self-care (01) | DRG 805 ==
LOC: TRG 14:14 → OBSVTOIN 20:23 → LD 20:23 → OB 10-02 07:58
PROVIDERS: ADMIT Obstetrics & Gynecology; ATTEND Obstetrics & Gynecology
PROC: 0U7C7ZZ Dilation of Cervix, Via Natural or Artificial Opening (ICD-10-PCS; 2018-09-29)
PROC: 10E0XZZ Delivery of Products of Conception, External Approach (ICD-10-PCS; principal; 2018-09-30)
PROC: 10H07YZ Insertion of Other Device into Products of Conception, Via Natural or Artificial Opening (ICD-10-PCS; 2018-09-30)
PROC: 3E0R3BZ Introduction of Anesthetic Agent into Spinal Canal, Percutaneous Approach (ICD-10-PCS; 2018-09-30)
PROC: 00HU33Z Insertion of Infusion Device into Spinal Canal, Percutaneous Approach (ICD-10-PCS; 2018-09-30)
DX: O99.324 Drug use complicating childbirth (principal); O60.14X0 Preterm labor third trimester with preterm delivery third trimester, not applicable or unspecified; Z37.0 Single live birth; O75.3 Other infection during labor; F14.10 Cocaine abuse, uncomplicated; O11.4 Pre-existing hypertension with pre-eclampsia, complicating childbirth; I16.0 Hypertensive urgency; O66.0 Obstructed labor due to shoulder dystocia; O69.3XX0 Labor and delivery complicated by short cord, not applicable or unspecified; O99.62 Diseases of the digestive system complicating childbirth; K80.20 Calculus of gallbladder without cholecystitis without obstruction; O99.02 Anemia complicating childbirth; D64.9 Anemia, unspecified; O36.5930 Maternal care for other known or suspected poor fetal growth, third trimester, not applicable or unspecified; O99.52 Diseases of the respiratory system complicating childbirth; O99.214 Obesity complicating childbirth; E66.9 Obesity, unspecified; J45.909 Unspecified asthma, uncomplicated; F12.10 Cannabis abuse, uncomplicated; O99.314 Alcohol use complicating childbirth; O99.334 Smoking (tobacco) complicating childbirth; F17.200 Nicotine dependence, unspecified, uncomplicated; Z3A.34 34 weeks gestation of pregnancy
CPT/HCPCS: 36415; 59025; 76815; 76816; 76819; 76820; 80048; 80053; 80307; 81001; 82140; 82150; 82239; 82962; 83615; 83690; 83735; 84156; 84450; 84460; 84550; 85014; 85018; 85025; 85027; 86592; 86706; 86850; 86900; 86901; 87806; 88307; 93005; 93010; G0378; J0290; J0360; J0702; J1200; J2270; J2405; J2543; J2590; J2765; J3475; J7120; J7121

== ENCOUNTER 2020-09-09 11:34 | Emergency (ER) | payer SELFPAY ==
--- NOTE | 2020-09-09 12:18 | Emergency Department Report ---
ED General Adult HPI - General Chief complaint: Arrhythmia/Palpitations Stated complaint: HEAD, HEART, ALLERGIES PUI?: No Time Seen by Provider: 09/09/20 12:18 Source: patient Mode of arrival: Ambulatory Limitations: No Limitations - History of Present Illness Initial comments: Patient is a 40-year-old -[place] female that comes to the emergency room complaining of palpitations. Patient denies any history of arrhythmias but review of the chart indicates that she has had A. fib in the past. Patient is supposed to be on Cardizem for her hypertension/arrhythmias but she has not taken it in some time. Patient admits to marijuana use. She states that the palpitations are worse with the use of the marijuana. Patient denies chest pain per se. She denies shortness of breath. Patient denies fever or chills. She denies leg swelling. She is in the ER with her 3 small kids. She has a total of 10 children. Twelve-lead EKG reveals no RV strain. She was in sinus rhythm with rare PACs. I had a long discussion with the patient about the marijuana use. I have told her that this could be a factor in her symptomology. She also has a history of anxiety. We have also discussed not taking her medication as prescribed to being a factor in how she is feeling. -: Gradual, days(s) Worsens with: none Associated Symptoms: denies other symptoms. denies: confusion, chest pain, cough, diaphoresis, fever/chills, headaches, loss of appetite, malaise, nausea/vomiting, rash, shortness of breath, syncope, weakness Treatments Prior to Arrival: none - Related Data Previous Rx's Medication Instructions Recorded Last Taken Type NIFEdipine XL [Procardia Xl] 60 mg PO QDAY #30 tablet 09/09/20 Unknown Rx Allergies Allergy/AdvReac Type Severity Reaction Status Date / Time No Known Allergies Allergy Verified 09/09/20 12:18 ED Review of Systems ROS: Stated complaint: HEAD, HEART, ALLERGIES Other details as noted in HPI Comment: All other systems reviewed and negative ED Past Medical Hx - Past Medical History Previous Medical History?: Yes Hx Hypertension: Yes (during pregnacy, history of ER visit for chronic HTN) Hx CVA: No Hx Heart Attack/AMI: No Hx Congestive Heart Failure: No Hx Diabetes: No Hx Deep Vein Thrombosis: No Hx Pulmonary Embolism: No Hx GERD: No Hx Liver Disease: No Hx Renal Disease: No Hx of Cancer: No Hx Sickle Cell Disease: No Hx Arthritis: No Hx Headaches / Migraines: No Hx Seizures: No Hx Kidney Stones: No Hx Psychiatric Treatment: No Hx Asthma: Yes (attack two weeks ago) Hx COPD: No Hx Tuberculosis: No Hx Dementia: No Hx HIV: No Additional medical history: Eczema - Surgical History Past Surgical History?: No Hx Pacemaker: No Hx Internal Defibrillator: No - Family History Family history: no significant - Social History Smoking Status: Current Every Day Smoker Substance Use Type: Marijuana - Medications Home Medications: Home Medications Medication Instructions Recorded Confirmed Last Taken Type NIFEdipine XL [Procardia Xl] 60 mg PO QDAY #30 tablet 09/09/20 Unknown Rx ED Physical Exam - General Limitations: No Limitations General appearance: alert, in no apparent distress - Head Head exam: Present: atraumatic, normocephalic - Eye Eye exam: Present: normal appearance - ENT ENT exam: Present: mucous membranes moist - Neck Neck exam: Present: normal inspection - Respiratory Respiratory exam: Present: normal lung sounds bilaterally. Absent: respiratory distress - Cardiovascular Cardiovascular Exam: Present: regular rate, normal rhythm. Absent: systolic murmur, diastolic murmur, rubs, gallop - GI/Abdominal GI/Abdominal exam: Present: soft, normal bowel sounds - Extremities Exam Extremities exam: Present: normal inspection - Back Exam Back exam: Present: normal inspection - Neurological Exam Neurological exam: Present: alert, oriented X3 - Psychiatric Psychiatric exam: Present: normal affect, normal mood - Skin Skin exam: Present: warm, dry, intact, normal color. Absent: rash ED Medical Decision Making - Lab Data Result diagrams: 09/09/20 12:50 09/09/20 12:50 - EKG Data -: EKG Interpreted by Me EKG shows normal: sinus rhythm Rate: normal - EKG Data When compared to previous EKG there are: no significant change, other (PAC'S RARE) Interpretation: no acute changes - Radiology Data Radiology results: report reviewed, image reviewed - Medical Decision Making Labs 09/09/20 09/09/20 12:50 12:50 WBC 8.5 RBC 3.66 Hgb 13.0 Hct 37.4 MCV 102 H MCH 36 H MCHC 35 H RDW 13.5 Plt Count 424 Lymph % (Auto) 25.5 [place] % (Auto) 7.3 Eos % (Auto) 3.4 Baso % (Auto) 0.6 Lymph # (Auto) 2.2 [place] # (Auto) 0.6 Eos # (Auto) 0.3 Baso # (Auto) 0.1 Seg Neutrophils % 63.2 Seg Neutrophils # 5.4 Sodium 137 Potassium 3.8 Chloride 102.7 Carbon Dioxide 21 L Anion Gap 17 BUN 9 Creatinine 0.6 Estimated GFR > 60 BUN/Creatinine Ratio 15 Glucose 87 Calcium 9.1 Total Bilirubin 0.40 AST 26 ALT 25 Alkaline Phosphatase 56 Troponin T < 0.010 Total Protein 7.2 Albumin 4.4 Albumin/Globulin Ratio 1.6 VS PER RN DOCUMENTED PT OFF HER BP MEDS- GIVEN RX FOR THEM. 1400 PT COULD NOT WAIT ANY LONGER FOR LABS AND SHE HAS LEFT THE ER. - Differential Diagnosis RO AFIB/ACS/ANXIETY/DRUG USE Critical care attestation.: If time is entered above; I have spent that time in minutes in the direct care of this critically ill patient, excluding procedure time. ED Disposition Clinical Impression: Hypertension, Non-adherence to medical treatment, Tetrahydrocannabinol (THC) use disorder, mild, abuse Disposition: ELOPED Is pt being admited?: No Does the pt Need Aspirin: No Condition: Stable Instructions: Hypertension (ED) Prescriptions: NIFEdipine XL [Procardia Xl] 60 mg PO QDAY #30 tablet Referrals: PATY EASLEY MD [Staff Physician] - 3-5 Days ANGELA MCCARTY MD [Staff Physician] - 3-5 Days Time of Disposition: 12:41
--- NOTE | 2020-09-09 12:49 | XRay Report ---
CHEST 2 VIEWS INDICATION: Chest Pain. COMPARISON: 06/27/2018 FINDINGS: Support devices: None. Heart: Within normal limits. Lungs/pleura: No acute air space or interstitial disease. No pneumothorax. Additional findings: None. IMPRESSION: Normal chest x-ray Signer Name: Raymundo Soliman Jr, MD Signed: 09/09/2020 12:44 PM Workstation Name: [id number]
[2020-09-09 13:19] LABS: Basophils # (Auto) 0.1 K/mm3 (0.0-0.1); Basophils % (Auto) 0.6 % (0.0-1.8); Eosinophils # (Auto) 0.3 K/mm3 (0.0-0.4); Eosinophils % (Auto) 3.4 % (0.0-4.3); Hematocrit 37.4 % (30.3-42.9); Lymphocytes # (Auto) 2.2 K/mm3 (1.2-5.4); Lymphocytes % (Auto) 25.5 % (13.4-35.0); Mean Corpuscular HGB Conc 35 % (30-34); Mean Corpuscular Volume 102 fl (79-97); Monocytes # (Auto) 0.6 K/mm3 (0.0-0.8); Monocytes % (Auto) 7.3 % (0.0-7.3); Platelet Count 424 K/mm3 (140-440); Red Blood Count 3.66 M/mm3 (3.65-5.03); Red Cell Distribution Width 13.5 % (13.2-15.2)
[2020-09-09 14:02] LABS: Alanine Aminotransferase 25 units/L (7-56); Albumin 4.4 g/dL (3.9-5); BUN/Creatinine Ratio 15; Blood Urea Nitrogen 9 mg/dL (7-17); Calcium 9.1 mg/dL (8.4-10.2); Hemolysis Index 9
== END 2020-09-09 19:00 | disposition left against medical advice (07) ==
LOC: ED 11:34
DX: I10 Essential (primary) hypertension (principal); F15.10 Other stimulant abuse, uncomplicated; Z91.19 Patient's noncompliance with other medical treatment and regimen; J45.909 Unspecified asthma, uncomplicated; F17.200 Nicotine dependence, unspecified, uncomplicated; F12.10 Cannabis abuse, uncomplicated; Z79.899 Other long term (current) drug therapy
CPT/HCPCS: 36415; 71046; 80053; 84443; 84484; 85025; 93005; 99283

== ENCOUNTER 2020-10-19 14:24 | Emergency (ER) | payer MEDICAID ==
[2020-10-19 15:17] VITALS: BP 139/80
[2020-10-19] MEDS ORDERED: ACETAMINOPHEN 500 MG TAB PO ONE (15:19)
[2020-10-19 15:38] LABS: Basophils # (Auto) 0.1 K/mm3 (0.0-0.1); Basophils % (Auto) 1.9 % (0.0-1.8); Eosinophils # (Auto) 0.5 K/mm3 (0.0-0.4); Eosinophils % (Auto) 7.1 % (0.0-4.3); Hematocrit 31.3 % (30.3-42.9); Hemoglobin 10.8 gm/dl (10.1-14.3); Lymphocytes # (Auto) 1.2 K/mm3 (1.2-5.4); Lymphocytes % (Auto) 17.5 % (13.4-35.0); Mean Corpuscular HGB Conc 34 % (30-34); Mean Corpuscular Volume 105 fl (79-97); Monocytes # (Auto) 0.5 K/mm3 (0.0-0.8); Monocytes % (Auto) 7.3 % (0.0-7.3); Platelet Count 377 K/mm3 (140-440); Red Cell Distribution Width 14.3 % (13.2-15.2)
[2020-10-19 15:48] LABS: Bacteria,Urine 1+ /HPF (Negative); Bilirubin,Urine NEG (Negative); Blood,Urine NEG (Negative); Color,Urine Yellow (Yellow); Mucus,Urine 1+ /HPF; Protein,Urine <15 mg/dL mg/dL (Negative); Urobilinogen,Urine < 2.0 mg/dL (<2.0)
[2020-10-19 15:57] LABS: Alanine Aminotransferase 17 units/L (7-56); Blood Urea Nitrogen 8 mg/dL (7-17); Calcium 9.2 mg/dL (8.4-10.2); Hemolysis Index 13
[2020-10-19] MEDS ORDERED: POTASSIUM CHLORIDE ER 20 MEQ TAB PO ONE (15:57)
[2020-10-19 16:02] LABS: BUN/Creatinine Ratio 20
--- NOTE | 2020-10-19 16:52 | Ultrasound Report ---
OB Ultrasound HISTORY: left pelvic pain. TECHNIQUE: Grayscale and color imaging performed. COMPARISON: No recent comparison ultrasound available. FINDINGS: Uterus measures 16.3 x 11.1 x 12.0 cm with a single viable intrauterine gestation. The [place] n-rump length is 71 mm which corresponds with an EGA of 13 weeks and 2 days. Estimated date of delive ry is 04/24/2021. Heart rate is 166 bpm. There is a reported small subchorionic hemorrhage which is not well demonstrated on this exam. Both ovaries are normal in size with small cyst in the left which is most likely functional. No signi ficant pelvic free fluid identified. IMPRESSION: Single viable intrauterine gestation as above with small reported subchorionic hemorrhage . Signer Name: Daren Doherty MD Signed: 10/19/2020 4:48 PM Workstation Name: [id number]
--- NOTE | 2020-10-19 16:52 | Ultrasound Report ---
OB Ultrasound HISTORY: left pelvic pain. TECHNIQUE: Grayscale and color imaging performed. COMPARISON: No recent comparison ultrasound available. FINDINGS: Uterus measures 16.3 x 11.1 x 12.0 cm with a single viable intrauterine gestation. The [place] n-rump length is 71 mm which corresponds with an EGA of 13 weeks and 2 days. Estimated date of delive ry is 04/24/2021. Heart rate is 166 bpm. There is a reported small subchorionic hemorrhage which is not well demonstrated on this exam. Both ovaries are normal in size with small cyst in the left which is most likely functional. No signi ficant pelvic free fluid identified. IMPRESSION: Single viable intrauterine gestation as above with small reported subchorionic hemorrhage . Signer Name: Daren Doherty MD Signed: 10/19/2020 4:48 PM Workstation Name: [id number]
--- NOTE | 2020-10-19 18:05 | Emergency Department Report ---
ED HPI - General Chief complaint: Abdominal Pain Stated complaint: ABDOMINAL PAIN (PREG) Time Seen by Provider: 10/19/20 15:18 Source: patient Mode of arrival: Ambulatory Limitations: No Limitations - History of Present Illness Initial comments: This is a 40-year-old female nontoxic, well nourished in appearance, no acute signs of distress presents to the ED with c/o of vaginal bleeding and pelvic pains x several days. Patient describes pelvic pain to the left pelvic area. Patient denies any radiation of pain. Patient stated had a positive test last week. Patient stated is unsure of her last menstrual cycle. Patient denies any upper abdominal pain. Patient stated that vaginal bleeding was vaginal spotting that has resolved yesterday. Patient denies any vaginal discharge or foul odor. Patient denies any nausea, vomiting, chest pain, shortness of breathe, fever, chills, headache, stiff neck, numbness, tingling. Patient denies any urinary symptoms. Patient denies any allergies or PMH -: days(s) Location: pelvis Radiation: none Severity: mild Severity scale (0 -10): 3 Quality: cramping Consistency: intermittent Improves with: none Worsens with: none Associated symptoms: vaginal bleeding. denies: nausea/vomiting, vaginal discharge, abdominal pain, dysuria, headache, vision changes, malaise, dysparuenia, rash, seizure, shortness of breath, syncope, weakness Vaginal bleeding: none :: Yes Pre-[place] care: none - Related Data Previous Rx's Medication Instructions Recorded Last Taken Type NIFEdipine XL [Procardia Xl] 60 mg PO QDAY #30 tablet 09/09/20 Unknown Rx 21/Iron Fu/Folic Acid 1 each PO DAILY #30 tablet 10/19/20 Unknown Rx [ Complete Caplet] Allergies Allergy/AdvReac Type Severity Reaction Status Date / Time No Known Allergies Allergy Verified 09/09/20 12:18 ED Review of Systems ROS: Stated complaint: ABDOMINAL PAIN (PREG) Other details as noted in HPI Comment: All other systems reviewed and negative Constitutional: denies: chills, fever Eyes: denies: eye pain, eye discharge, vision change ENT: denies: ear pain, throat pain Respiratory: denies: cough, shortness of breath, wheezing Cardiovascular: denies: chest pain, palpitations Endocrine: no symptoms reported Gastrointestinal: denies: abdominal pain, nausea, diarrhea Genitourinary: abnormal menses. denies: urgency, dysuria, discharge Musculoskeletal: denies: back pain, joint swelling, arthralgia Skin: denies: rash, lesions Neurological: denies: headache, weakness, paresthesias Psychiatric: denies: anxiety, depression Hematological/Lymphatic: denies: easy bleeding, easy bruising ED Past Medical Hx - Past Medical History Previous Medical History?: Yes Hx Hypertension: Yes (during pregnacy, history of ER visit for chronic HTN) Hx CVA: No Hx Heart Attack/AMI: No Hx Congestive Heart Failure: No Hx Diabetes: No Hx Deep Vein Thrombosis: No Hx Pulmonary Embolism: No Hx GERD: No Hx Liver Disease: No Hx Renal Disease: No Hx Sickle Cell Disease: No Hx Arthritis: No Hx Headaches / Migraines: No Hx Seizures: No Hx Kidney Stones: No Hx Psychiatric Treatment: No Hx Asthma: Yes (attack two weeks ago) Hx COPD: No Hx Tuberculosis: No Hx Dementia: No Hx HIV: No Additional medical history: Eczema - Surgical History Hx Pacemaker: No Hx Internal Defibrillator: No - Social History Smoking Status: Current Every Day Smoker Substance Use Type: Marijuana - Medications Home Medications: Home Medications Medication Instructions Recorded Confirmed Last Taken Type NIFEdipine XL [Procardia Xl] 60 mg PO QDAY #30 tablet 09/09/20 Unknown Rx 21/Iron Fu/Folic Acid 1 each PO DAILY #30 tablet 10/19/20 Unknown Rx [ Complete Caplet] ED Physical Exam - General Limitations: No Limitations General appearance: alert, in no apparent distress - Head Head exam: Present: atraumatic, normocephalic - Eye Eye exam: Present: normal appearance - Neck Neck exam: Present: normal inspection, full ROM. Absent: tenderness, meningismus, lymphadenopathy - Respiratory Respiratory exam: Absent: respiratory distress - Cardiovascular Cardiovascular Exam: Present: regular rate - GI/Abdominal GI/Abdominal exam: Present: soft, normal bowel sounds. Absent: distended, tenderness, guarding, rebound, rigid, diminished bowel sounds - Extremities Exam Extremities exam: Present: normal inspection, full ROM - Back Exam Back exam: Present: normal inspection, full ROM. Absent: tenderness, CVA tenderness (R), CVA tenderness (L), muscle spasm, paraspinal tenderness, vertebral tenderness, rash noted - Neurological Exam Neurological exam: Present: alert, oriented X3, normal gait - Psychiatric Psychiatric exam: Present: normal affect, normal mood - Skin Skin exam: Present: warm, dry, intact, normal color. Absent: rash ED Course Vital Signs 10/19/20 10/19/20 15:13 16:36 Temperature 98.6 F Pulse Rate 89 Respiratory 18 18 Rate Blood Pressure 139/80 [Right] O2 Sat by Pulse 98 Oximetry - Reevaluation(s) Reevaluation #1: 10/19/20 18:04 Patient is speaking in full sentences with no signs of distress noted. ED Medical Decision Making - Lab Data Result diagrams: 10/19/20 15:23 10/19/20 15:23 Lab Results 10/19/20 10/19/20 10/19/20 Range/Units 15:23 15:23 15:23 WBC 7.0 (4.5-11.0) K/mm3 RBC 3.00 L (3.65-5.03) M/mm3 Hgb 10.8 (10.1-14.3) gm/dl Hct 31.3 (30.3-42.9) % MCV 105 H (79-97) fl MCH 36 H (28-32) pg MCHC 34 (30-34) % RDW 14.3 (13.2-15.2) % Plt Count 377 (140-440) K/mm3 Lymph % (Auto) 17.5 (13.4-35.0) % [place] % (Auto) 7.3 (0.0-7.3) % Eos % (Auto) 7.1 H (0.0-4.3) % Baso % (Auto) 1.9 H (0.0-1.8) % Lymph # (Auto) 1.2 (1.2-5.4) K/mm3 [place] # (Auto) 0.5 (0.0-0.8) K/mm3 Eos # (Auto) 0.5 H (0.0-0.4) K/mm3 Baso # (Auto) 0.1 (0.0-0.1) K/mm3 Seg Neutrophils % 66.2 (40.0-70.0) % Seg Neutrophils # 4.6 (1.8-7.7) K/mm3 Sodium 136 L (137-145) mmol/L Potassium 3.4 L (3.6-5.0) mmol/L Chloride 102.6 (98-107) mmol/L Carbon Dioxide 21 L (22-30) mmol/L Anion Gap 16 mmol/L BUN 8 (7-17) mg/dL Creatinine 0.4 L (0.6-1.2) mg/dL Estimated GFR > 60 ml/min BUN/Creatinine Ratio 20 % Glucose 96 (65-100) mg/dL Calcium 9.2 (8.4-10.2) mg/dL Total Bilirubin 0.20 (0.1-1.2) mg/dL AST 18 (5-40) units/L ALT 17 (7-56) units/L Alkaline Phosphatase 48 (35-129) units/L Total Protein 5.9 L (6.3-8.2) g/dL Albumin 4.0 (3.9-5) g/dL Albumin/Globulin Ratio 2.1 % HCG, Quant 77584 H (0-4) mIU/mL Urine Color (Yellow) Urine Turbidity (Clear) Urine pH (5.0-7.0) Ur Specific [place] (1.003-1.030) Urine Protein (Negative) mg/dL Urine Glucose (UA) (Negative) mg/dL Urine Ketones (Negative) mg/dL Urine Blood (Negative) Urine Nitrite (Negative) Urine Bilirubin (Negative) Urine Urobilinogen (<2.0) mg/dL Ur Leukocyte Esterase (Negative) Urine WBC (Auto) (0.0-6.0) /HPF Urine RBC (Auto) (0.0-6.0) /HPF U Epithel Cells (Auto) (0-13.0) /HPF Urine Bacteria (Auto) (Negative) /HPF Urine Mucus /HPF Blood Type 10/19/20 10/19/20 Range/Units 15:23 Unknown WBC (4.5-11.0) K/mm3 RBC (3.65-5.03) M/mm3 Hgb (10.1-14.3) gm/dl Hct (30.3-42.9) % MCV (79-97) fl MCH (28-32) pg MCHC (30-34) % RDW (13.2-15.2) % Plt Count (140-440) K/mm3 Lymph % (Auto) (13.4-35.0) % [place] % (Auto) (0.0-7.3) % Eos % (Auto) (0.0-4.3) % Baso % (Auto) (0.0-1.8) % Lymph # (Auto) (1.2-5.4) K/mm3 [place] # (Auto) (0.0-0.8) K/mm3 Eos # (Auto) (0.0-0.4) K/mm3 Baso # (Auto) (0.0-0.1) K/mm3 Seg Neutrophils % (40.0-70.0) % Seg Neutrophils # (1.8-7.7) K/mm3 Sodium (137-145) mmol/L Potassium (3.6-5.0) mmol/L Chloride (98-107) mmol/L Carbon Dioxide (22-30) mmol/L Anion Gap mmol/L BUN (7-17) mg/dL Creatinine (0.6-1.2) mg/dL Estimated GFR ml/min BUN/Creatinine Ratio % Glucose (65-100) mg/dL Calcium (8.4-10.2) mg/dL Total Bilirubin (0.1-1.2) mg/dL AST (5-40) units/L ALT (7-56) units/L Alkaline Phosphatase (35-129) units/L Total Protein (6.3-8.2) g/dL Albumin (3.9-5) g/dL Albumin/Globulin Ratio % HCG, Quant (0-4) mIU/mL Urine Color Yellow (Yellow) Urine Turbidity Cloudy (Clear) Urine pH 6.0 (5.0-7.0) Ur Specific [place] 1.024 (1.003-1.030) Urine Protein <15 mg/dl (Negative) mg/dL Urine Glucose (UA) Neg (Negative) mg/dL Urine Ketones Neg (Negative) mg/dL Urine Blood Neg (Negative) Urine Nitrite Neg (Negative) Urine Bilirubin Neg (Negative) Urine Urobilinogen < 2.0 (<2.0) mg/dL Ur Leukocyte Esterase Neg (Negative) Urine WBC (Auto) 6.0 (0.0-6.0) /HPF Urine RBC (Auto) 3.0 (0.0-6.0) /HPF U Epithel Cells (Auto) 16.0 H (0-13.0) /HPF Urine Bacteria (Auto) 1+ (Negative) /HPF Urine Mucus 1+ /HPF Blood Type AB POSITIVE - Radiology Data [address] [address] Ultrasound Report Signed Patient: ELIAS OLIVARES MR#: [id number] : 1980 Acct:[id number] Age/Sex: 40 / F ADM Date: 10/19/20 Loc: ED Attending Dr: Ordering Physician: MARIAH JOHNSON NP Date of Service: 10/19/20 Procedure(s): US OB <= 14 weeks fetus Accession Number(s): [id number] cc: MARIAH JOHNSON NP OB Ultrasound HISTORY: left pelvic pain. TECHNIQUE: Grayscale and color imaging performed. COMPARISON: No recent comparison ultrasound available. FINDINGS: Uterus measures 16.3 x 11.1 x 12.0 cm with a single viable intrauterine gestation. The [place]-rump length is 71 mm which corresponds with an EGA of 13 weeks and 2 days. Estimated date of delivery is 04/24/2021. Heart rate is 166 bpm. There is a reported small subchorionic hemorrhage which is not well demonstrated on this exam. Both ovaries are normal in size with small cyst in the left which is most likely functional. No significant pelvic free fluid identified. IMPRESSION: Single viable intrauterine gestation as above with small reported subchorionic hemorrhage. Signer Name: Daren Doherty MD Signed: 10/19/2020 4:48 PM Workstation Name: [id number] Transcribed By: JW Dictated By: Daren Doherty MD Electronically Authenticated By: Daren Doherty MD Signed Date/Time: 10/19/201647 DD/ 164 TD/TT: [address] [address] Ultrasound Report Signed Patient: ELIAS OLIVARES MR#: [id number] : 1980 Acct:[id number] Age/Sex: 40 / F ADM Date: 10/19/20 Loc: ED Attending Dr: Ordering Physician: MARIAH JOHNSON NP Date of Service: 10/19/20 Procedure(s): US OB transvaginal Accession Number(s): [id number] cc: MARIAH JOHNSON NP OB Ultrasound HISTORY: left pelvic pain. TECHNIQUE: Grayscale and color imaging performed. COMPARISON: No recent comparison ultrasound available. FINDINGS: Uterus measures 16.3 x 11.1 x 12.0 cm with a single viable intrauterine gestation. The crown-rump length is 71 mm which corresponds with an EGA of 13 weeks and 2 days. Estimated date of delivery is 04/24/2021. Heart rate is 166 bpm. There is a reported small subchorionic hemorrhage which is not well demonstrated on this exam. Both ovaries are normal in size with small cyst in the left which is most likely functional. No significant pelvic free fluid identified. IMPRESSION: Single viable intrauterine gestation as above with small reported subchorionic hemorrhage. Signer Name: Daren Doherty MD Signed: 10/19/2020 4:48 PM Workstation Name: [id number] Transcribed By: SIRI Dictated By: Daren Doherty MD Electronically Authenticated By: Daren Doherty MD Signed Date/Time: 10/19/201647 DD/ 40 TD/TT: - Medical Decision Making This is a 40-year-old female presents with threatened miscarriage. Patient is stable and was examined by me. Normal abdominal exam. US OB obtained and dictated by the radiologist. Ua obtained. Quantative serum test obtained. Patient notified of the US report with no questions noted by the patient. Patient was instructed f/u with [facility] in 3-5 days. RH factor positive. Labs within normal limits. Patient was given strict precautions and education on ectopic . At time of discharge, the patient does not seem toxic or ill in appearance. No acute signs of distress noted. Patient agrees to discharge treatment plan of care. No further questions noted by the patient. Critical care attestation.: If time is entered above; I have spent that time in minutes in the direct care of this critically ill patient, excluding procedure time. ED Disposition Clinical Impression: Threatened miscarriage, Pelvic pain during Disposition: - TO HOME OR SELFCARE Is pt being admited?: No Does the pt Need Aspirin: No Condition: Stable Instructions: Abdominal Pain (ED), Threatened Miscarriage, [id number] Additional Instructions: Follow-up with a [facility] doctor in 3-5 days or if symptoms worsen and continue return to emergency room as soon as possible. Prescriptions: 21/Iron Fu/Folic Acid [ Complete Caplet] 1 each PO DAILY #30 tablet Referrals: PRIMARY CAREMD [Primary Care Provider] - 3-5 Days [facility] [Provider [facility]] - 3-5 Days [facility] [Provider Group] - 3-5 Days Time of Disposition: 18:06
== END 2020-10-19 18:19 | disposition home or self-care (01) ==
LOC: ED 14:24
DX: O20.0 Threatened abortion (principal); Z3A.13 13 weeks gestation of pregnancy; I10 Essential (primary) hypertension; J45.909 Unspecified asthma, uncomplicated; F17.200 Nicotine dependence, unspecified, uncomplicated; F12.90 Cannabis use, unspecified, uncomplicated; Z79.899 Other long term (current) drug therapy
CPT/HCPCS: 36415; 76801; 76817; 80053; 81001; 84702; 85025; 86900; 86901; 99284

== ENCOUNTER 2021-07-07 13:16 | Emergency (ER) | payer MEDICAID ==
[2021-07-07] MEDS ORDERED: predniSONE 20 MG TAB PO ONE (14:07)
--- NOTE | 2021-07-07 14:08 | Emergency Department Report ---
ED Rash HPI - HPI Chief Complaint: Headache Stated Complaint: scalp pain Time Seen by Provider: 07/07/21 14:07 Duration: 1 Day Location: Head Suspected Cause: Other Rash Symptoms: Yes Itching, No Facial Swelling, No Tongue/Oral Swelling, No Breathing Difficulties, No Choking Sensation, No Wheezing/Dyspnea, No Peeling, No Blistering, No Fever, No Lightheaded, No Malaise, No Myalgias Severity: mild Other History: 40 yo comes to ER with itching and irrition to her scalp p using hair dye yesterday. She has known allergy to hair dye but used it any way. no open areas. head is shaved to about 2mm of hair. no fever or chills ED Review of Systems ROS: Stated complaint: scalp pain Other details as noted in HPI Comment: All other systems reviewed and negative ED Past Medical Hx - Past Medical History Previous Medical History?: Yes Hx Hypertension: Yes (during pregnacy, history of ER visit for chronic HTN) Hx CVA: No Hx Heart Attack/AMI: No Hx Congestive Heart Failure: No Hx Diabetes: No Hx Deep Vein Thrombosis: No Hx Pulmonary Embolism: No Hx GERD: No Hx Liver Disease: No Hx Renal Disease: No Hx Sickle Cell Disease: No Hx Arthritis: No Hx Headaches / Migraines: No Hx Seizures: No Hx Kidney Stones: No Hx Psychiatric Treatment: No Hx Asthma: Yes (attack two weeks ago) Hx COPD: No Hx Tuberculosis: No Hx Dementia: No Hx HIV: No Additional medical history: Eczema - Surgical History Past Surgical History?: Yes Hx Pacemaker: No Hx Internal Defibrillator: No - Family History Family history: no significant - Social History Smoking Status: Current Every Day Smoker Substance Use Type: None - Medications Home Medications: Home Medications Medication Instructions Recorded Confirmed Last Taken Type 21/Iron Fu/Folic Acid 1 each PO DAILY #30 tablet 10/19/20 04/23/21 04/21/21 Rx [ Complete Caplet] NIFEdipine XL [Procardia Xl] 60 mg PO QDAY #90 tablet 04/28/21 Unknown Rx labetaloL [Labetalol 100mg TAB] 300 mg PO Q8H #120 tablet 04/28/21 Unknown Rx hydrOXYzine PAMOATE [Vistaril] 25 mg PO Q6HR PRN #20 capsule 07/07/21 Unknown Rx predniSONE [Deltasone] 20 mg PO DAILY #5 tablet 07/07/21 Unknown Rx Rash Exam - Exam General: Vital signs noted. No distress. Alert and acting appropriately. HEENT: No Periorbital Edema, No Conjuctival Injection, No Chemosis, No Perioral Edema, No Tongue Edema, No Uvular Edema, No Compromised Airway, No Drooling Lungs: Yes Good Air Exchange (Normal Breath Sounds), No Wheezes, No Ronchi, No Stridor, No Cough, No Labored Respirations, No Retractions, No Use of Accessory Muscles, No Other Abnormal Lung Sounds Heart: Yes Regular, No Murmur Skin: No Other Other: Positive: Abdomen Normal, Neurologic Normal, Musculoskeletal Normal ED Course Vital Signs 07/07/21 13:18 Temperature 98.4 F Pulse Rate 95 H Respiratory 16 Rate Blood Pressure 156/107 [Right] O2 Sat by Pulse 100 Oximetry ED Medical Decision Making - Medical Decision Making Vital Signs 07/07/21 13:18 Temperature 98.4 F Pulse Rate 95 H Respiratory 16 Rate Blood Pressure 156/107 [Right] O2 Sat by Pulse 100 Oximetry Vital Signs 07/07/21 13:18 Temperature 98.4 F Pulse Rate 95 H Respiratory 16 Rate Blood Pressure 156/107 [Right] O2 Sat by Pulse 100 Oximetry medicated for bp in ER pt has bp meds but does not take them daily I've told her she has to take them daily for them to work no cp no sob no neuro def decadron for scalp irritation no need for antibiotics dc home with dc plan of care including diet, activity, meds and follow up. I've asked her to never use hair dye again. She verbalizes understanding of plan of care. - Differential Diagnosis allergy Critical care attestation.: If time is entered above; I have spent that time in minutes in the direct care of this critically ill patient, excluding procedure time. ED Disposition Clinical Impression: Allergy to hair dye, Rash, Non-adherence to medical treatment HTN (hypertension) Qualifiers: Hypertension type: unspecified Qualified Code(s): I10 - Essential (primary) hypertension Disposition: 01 HOME / SELF CARE / HOMELESS Is pt being admited?: No Does the pt Need Aspirin: No Condition: Stable Instructions: Allergies, Adult, [id number], Hypertension (ED) Additional Instructions: do not use hair dye meds as ordered today follow up with pcp referral below take your bp meds daily Prescriptions: predniSONE [Deltasone] 20 mg PO DAILY #5 tablet hydrOXYzine PAMOATE [Vistaril] 25 mg PO Q6HR PRN #20 capsule PRN Reason: Itching Referrals: PATY EASLEY MD [Staff Physician] - 3-5 Days Time of Disposition: 14:08
[2021-07-07] MEDS ORDERED: FAMOTIDINE 20 MG TAB PO ONE (14:10)
[2021-07-07] MEDS ORDERED: IBUPROFEN 800 MG TAB PO ONE (14:10)
[2021-07-07 16:54] VITALS: BP 132/92
== END 2021-07-07 16:57 | disposition home or self-care (01) ==
LOC: ED 13:16
DX: L23.4 Allergic contact dermatitis due to dyes (principal); R21 Rash and other nonspecific skin eruption; I10 Essential (primary) hypertension; F17.200 Nicotine dependence, unspecified, uncomplicated
CPT/HCPCS: 99283